=== PATIENT | male | born 1930 | race Caucasian/White ===

== ENCOUNTER 2016-10-05 19:17 | Inpatient (IN) | payer OTHER ==
[~2016-10-05] VITALS: Ht 167.6 cm; Wt 89.1 kg
[~2016-10-05 19:17] MED LIST: CYAN100020; HYDR12.55 PO; METF-384 PO; MULT-190 PO; OMEP20CA9 PO; SIMV10TA5 PO
[2016-10-05] MEDS ORDERED: SODIUM CHLORIDE 0.9% 1000ML 1,000 ML IV STA (19:28)
--- NOTE | 2016-10-05 19:38 | EMERGENCY ROOM VISIT NOTE ---
History Report prepared by Fernando: Skyler Klein Under the Supervision of: Dr. Rodrigo Sanon M.D. First contact with patient: 19:22 Stated Complaint: HEADACHE/ EVAL History of Present Illness The patient is an 86 year old male who presents to the Emergency Room with complaints of a persistent altered mental status that started prior to arrival this evening. Per the nursing staff, the patient cannot remember his dog's name , which is unusual. The patient states that he was waiting for food at a restaurant when he starting becoming woozy. He also had trouble swallowing at the restaurant. He did not eat anything there. The patient currently feels a bit woozy, but not as much as before. He is not diabetic. Source of History: patient, nursing staff Onset: Prior to arrival this evening Position: other (global - altered mental status) Symptom Intensity: cannot remember his dog's name Timing: other (episode) Note: Associated symptoms: Woozy. Trouble swallowing. No other symptoms noted. Review of Systems See HPI for pertinent positives & negatives. A total of 10 systems reviewed and were otherwise negative. Past Medical & Surgical Medical Problems: (1) Confusion and disorientation (2) MGUS (monoclonal gammopathy of unknown significance) Family History No significant family history Social History Smoking Status: Never Smoker Marital Status: in relationship Housing Status: lives alone Current/Historical Medications Scheduled Cyanocobalamin (Vitamin B12), UNIT(INT) DAILY Hydrochlorothiazide (Hydrochlorothiazide), 1 TAB PO DAILY Ocuvite Preservision (Ocuvite Preservision), 1 TAB PO DAILY Omeprazole (Prilosec), 20 MG PO DAILY Simvastatin (Zocor), 10 MG PO QPM Allergies Coded Allergies: No Known Allergies (Unverified , 10/05/16) Physical Exam Vital Signs Date Time Temp Pulse Resp B/P Pulse Ox O2 Delivery O2 Flow Rate FiO2 10/05/16 22:03 78 20 164/93 95 Room Air 10/05/16 21:14 84 20 151/109 99 Nasal Cannula 2.0 10/05/16 20:26 71 20 151/109 98 Nasal Cannula 2.0 10/05/16 20:22 151/109 10/05/16 20:10 98 Nasal Cannula 2.0 10/05/16 19:51 154/102 10/05/16 19:49 145/94 10/05/16 19:48 144/91 10/05/16 19:48 86 20 144/91 97 Room Air 87 145/94 96 154/102 10/05/16 19:47 89 24 10/05/16 19:36 95 Room Air 10/05/16 19:31 83 10/05/16 19:30 90 20 146/82 94 Room Air 10/05/16 19:27 146/82 Physical Exam GENERAL: Patient is a healthy-appearing well-nourished. Does not know the president, does not know where he is. HEAD: Normocephalic atraumatic EYES: Ocular movements intact pupils equal and react to light OROPHARYNX mucous membranes are moist no exudates present no erythema or edema present NECK: Supple no nuchal rigidity CHEST: Good equal expansion LUNGS: Clear and equal to auscultation CARDIAC: Normal S1 and S2 ABDOMEN: Soft nontender no guarding BACK: No CVA tenderness EXTREMITIES: No pain upon palpation normal muscle strength in all groups no clubbing cyanosis or edema NEURO: Patient is following commands is answering questions appropriately. Alert and oriented x3 Cranial Nerves 2-12 grossly intact Medical Decision & Procedures ER Provider Diagnostic Interpretation: Radiology results as stated below per my review and radiologist interpretation: CT HEAD WITHOUT CONTRAST (CT) CLINICAL HISTORY: Acute change in mental status COMPARISON STUDY: 01/12/2015 TECHNIQUE: Axial CT of the brain is performed from the vertex to the skull base. IV contrast was not administered for this examination. CT DOSE: 823.94 mGycm FINDINGS: No intra or extra-axial mass lesions are visualized. There is no CT evidence of acute cortical infarction. There is no evidence of midline shift. There is no acute hemorrhage. No calvarial fractures are visualized. There are minor white matter hypodensities likely on a small vessel basis. There is cerebellar atrophy. There is no evidence of pathologic ventricular dilatation. There is no evidence of acute sinusitis IMPRESSION: No acute intracranial findings Electronically signed by: Juan Tate M.D. 10/05/2016 8:10 PM Dictated Date/Time: 10/05/2016 8:09 PM CHEST ONE VIEW PORTABLE CLINICAL HISTORY: Acute change in mental status COMPARISON STUDY: 12/11/2014 FINDINGS: The heart is enlarged. There is aortic tortuosity/ectasia. There is a retrocardiac opacity consistent with a hiatal hernia. There are bibasilar opacities, likely representing a combination of fat pad and atelectasis. There is no overt failure. There is no lobar consolidation.[ IMPRESSION: 1. Cardiomegaly 2. Hiatal hernia 3. Hazy basilar densities, likely representing a combination of fat pad and atelectasis Electronically signed by: Juan Tate M.D. 10/05/2016 7:57 PM Dictated Date/Time: 10/05/2016 7:56 PM Laboratory Results 10/05/16 19:40 Red Blood Count 4.81, Mean Corpuscular Volume 87.7, Mean Corpuscular Hemoglobin 29.9, Mean Corpuscular Hemoglobin Concent 34.1, Mean Platelet Volume 9.4, Neutrophils (%) (Auto) 53.6, Lymphocytes (%) (Auto) 31.4, Monocytes (%) (Auto) 7.2, Eosinophils (%) (Auto) 6.7, Basophils (%) (Auto) 0.5, Neutrophils # (Auto) 4.30, Lymphocytes # (Auto) 2.52, Monocytes # (Auto) 0.58, Eosinophils # (Auto) 0.54, Basophils # (Auto) 0.04 10/05/16 19:40 Test 10/05/16 19:40 10/05/16 19:41 10/05/16 19:56 White Blood Count 8.03 K/uL (4.8-10.8) Red Blood Count 4.81 M/uL (4.7-6.1) Hemoglobin 14.4 g/dL (14.0-18.0) Hematocrit 42.2 % (42-52) Mean Corpuscular Volume 87.7 fL (80-100) Mean Corpuscular Hemoglobin 29.9 pg (25-34) Mean Corpuscular Hemoglobin Concent 34.1 g/dl (32-36) Platelet Count 214 K/uL (130-400) Mean Platelet Volume 9.4 fL (7.4-10.4) Neutrophils (%) (Auto) 53.6 % Lymphocytes (%) (Auto) 31.4 % Monocytes (%) (Auto) 7.2 % Eosinophils (%) (Auto) 6.7 % Basophils (%) (Auto) 0.5 % Neutrophils # (Auto) 4.30 K/uL (1.4-6.5) Lymphocytes # (Auto) 2.52 K/uL (1.2-3.4) Monocytes # (Auto) 0.58 K/uL (0.11-0.59) Eosinophils # (Auto) 0.54 K/uL (0-0.5) Basophils # (Auto) 0.04 K/uL (0-0.2) RDW Standard Deviation 46.5 fL (36.4-46.3) RDW Coefficient of Variation 14.5 % (11.5-14.5) Immature Granulocyte % (Auto) 0.6 % Immature Granulocyte # (Auto) 0.05 K/uL (0.00-0.02) Anion Gap 6.0 mmol/L (3-11) Est Creatinine Clear Calc Drug Dose 42.1 ml/min Estimated GFR () 53.1 Estimated GFR (Non- 45.8 BUN/Creatinine Ratio 14.3 (10-20) Calcium Level 8.8 mg/dl (8.5-10.1) Magnesium Level 2.2 mg/dl (1.8-2.4) Total Bilirubin 0.6 mg/dl (0.2-1) Direct Bilirubin < 0.1 mg/dl (0-0.2) Aspartate Amino Transf (AST/SGOT) 21 U/L (15-37) Alanine Aminotransferase (ALT/SGPT) 25 U/L (12-78) Alkaline Phosphatase 100 U/L (45-117) Total Creatine Kinase 262 U/L (39-308) Creatine Kinase MB 5.2 ng/ml (0.5-3.6) Creatine Kinase MB Ratio 2.0 (0-3.0) Troponin I < 0.015 ng/ml (0-0.045) Total Protein 7.8 gm/dl (6.4-8.2) Albumin 3.5 gm/dl (3.4-5.0) Thyroid Stimulating Hormone (TSH) 1.370 uIu/ml (0.300-4.500) Bedside Glucose 122 mg/dl (70-99) Urine Color YELLOW Urine Appearance CLEAR (CLEAR) Urine pH 6.5 (4.5-7.5) Urine Specific [place] 1.011 (1.000-1.030) Urine Protein NEG (NEG) Urine Glucose (UA) NEG (NEG) Urine Ketones NEG (NEG) Urine Occult Blood NEG (NEG) Urine Nitrite NEG (NEG) Urine Bilirubin NEG (NEG) Urine Urobilinogen NEG (NEG) Urine Leukocyte Esterase NEG (NEG) Labs reviewed by ED physician. Medications Administered Medications (Trade) Dose Ordered Sig/Malick Route Start Time Stop Time Status Last Admin Dose Admin Sodium Chloride (Nss 1000ml) 1,000 ml @ 999 mls/hr Q1H1M STAT IV 10/05/16 19:28 10/05/16 20:28 DC 10/05/16 19:44 999 MLS/HR Potassium Chloride (Julieta Ciel Elix) 40 meq NOW STAT PO 10/05/16 20:19 10/05/16 20:20 DC 10/05/16 20:31 40 MEQ Lorazepam 2 mg 2 mg STK-MED ONCE .ROUTE 10/05/16 22:27 10/05/16 22:31 DC 10/05/16 22:41 0.5 MG Pantoprazole Sodium/Syringe (Protonix Inj/ Syringe) 10 ml @ 5 mls/min ONE STAT IV 10/05/16 22:42 10/05/16 22:43 DC 10/05/16 23:04 5 MLS/MIN Calcium Carbonate (Tums Chew Tab) 1,000 mg Q1H PRN PO 10/05/16 23:00 11/04/16 22:59 10/05/16 23:04 1,000 MG ECG Indication: weakness Rate (beats per minute): 89 Rhythm: normal sinus Findings: 1st degree AV block, no acute ischemic change, no ectopy ED Course 1924: Past medical records reviewed. The patient was evaluated in room C5. A complete history and physical examination was performed. 1927: Ordered NSS 1000 ml @ 999 mls/hr IV. 2018: Ordered Julieta Ciel Elix 40 meq PO. 2112: I reevaluated the patient and he is sitting up in bed. I discussed the treatment plan with the patient's son. The patient's son verbally expressed understanding and agreement of the treatment plan. The patient will be evaluated for further treatment. 2116: I discussed the patient with Dr. Miller - [facility] hospitalist - he will evaluate the patient for further treatment. Medical Decision Differential diagnosis: Etiologies such as metabolic, infection, hypo/hyperglycemia, electrolyte abnormalities, cardiac sources, intracerebral event, toxicologic, neurologic, as well as others were entertained. This is an 86-year-old male who presents emergency department complaining of acute change in mental status. Patient was in a restaurant this evening when he be somewhat became very disoriented and confused. Upon arrival to emergency department the patient does not know the name of the president or the month he was sent for CAT scan of the head he has a normal urinalysis a normal chest x-ray. Repeat examination revealed the patient to still be acutely confused. For this reason I did discuss the case with the hospitalist who agreed to admit the patient. He has for an MRA MRI of the head. Consults Time Called: 2113 Consulting Physician: Dr. Angela EDDY hospitalist Returned Call: 2116 I discussed the patient with Dr. Angela EDDY [facility] - he will evaluate the patient for further treatment. Impression Primary Impression: Delirium Scribe Attestation The scribe's documentation has been prepared under my direction and personally reviewed by me in its entirety. I confirm that the note above accurately reflects all work, treatment, procedures, and medical decision making performed by me. Departure Information Dispostion Being Evaluated By Hospitalist RV. Sotomayor MD (PCP)
[2016-10-05 19:48] LABS: BASO % 0.5 %; BASO ABS # 0.04 K/uL (0-0.2); COMPLETE YES; EOS % 6.7 %; HEMATOCRIT 42.2 % (42-52); IG% 0.6 %; LYMPH % 31.4 %; LYMPH ABS # 2.52 K/uL (1.2-3.4); MEAN CELL VOLUME 87.7 fL (80-100); MEAN CORPUSCULAR HEMOGLOBIN 29.9 pg (25-34); MEAN CORPUSCULAR HGB CONC 34.1 g/dl (32-36); MEAN PLATELET VOLUME 9.4 fL (7.4-10.4); MONO % 7.2 %; NEUT % 53.6 %; PLATELET COUNT 214 K/uL (130-400); RED BLOOD COUNT 4.81 M/uL (4.7-6.1); WHITE BLOOD COUNT 8.03 K/uL (4.8-10.8)
--- NOTE | 2016-10-05 19:58 | DIAGNOSTIC IMAGING REPORT ---
CHEST ONE VIEW PORTABLE CLINICAL HISTORY: Acute change in mental status COMPARISON STUDY: 12/11/2014 FINDINGS: The heart is enlarged. There is aortic tortuosity/ectasia. There is a retrocardiac opacity consistent with a hiatal hernia. There are bibasilar opacities, likely representing a combination of fat pad and atelectasis. There is no overt failure. There is no lobar consolidation.[ IMPRESSION: 1. Cardiomegaly 2. Hiatal hernia 3. Hazy basilar densities, likely representing a combination of fat pad and atelectasis Electronically signed by: Juan Tate M.D. 10/05/2016 7:57 PM Dictated Date/Time: 10/05/2016 7:56 PM
--- NOTE | 2016-10-05 20:11 | DIAGNOSTIC IMAGING REPORT ---
CT HEAD WITHOUT CONTRAST (CT) CLINICAL HISTORY: Acute change in mental status COMPARISON STUDY: 01/12/2015 TECHNIQUE: Axial CT of the brain is performed from the vertex to the skull base. IV contrast was not administered for this examination. CT DOSE: 823.94 mGycm FINDINGS: No intra or extra-axial mass lesions are visualized. There is no CT evidence of acute cortical infarction. There is no evidence of midline shift. There is no acute hemorrhage. No calvarial fractures are visualized. There are minor white matter hypodensities likely on a small vessel basis. There is cerebellar atrophy. There is no evidence of pathologic ventricular dilatation. There is no evidence of acute sinusitis IMPRESSION: No acute intracranial findings Electronically signed by: Juan Tate M.D. 10/05/2016 8:10 PM Dictated Date/Time: 10/05/2016 8:09 PM
[2016-10-05 20:15] LABS: BLOOD UREA NITROGEN 20 mg/dl (7-18); BUN/CREATININE RATIO 14.3 (10-20); CALCIUM 8.8 mg/dl (8.5-10.1); CARBON DIOXIDE 31 mmol/L (21-32); CHLORIDE 104 mmol/L (98-107); GLUCOSE 136 mg/dl (70-99); POTASSIUM 3.4 mmol/L (3.5-5.1); SODIUM 141 mmol/L (136-145)
[2016-10-05 20:17] LABS: URINE APPEARANCE CLEAR (CLEAR); URINE BILIRUBIN NEG (NEG); URINE COLOR YELLOW; URINE NITRITE NEG (NEG); URINE PH 6.5 (4.5-7.5); URINE SPECIFIC GRAVITY 1.011 (1.000-1.030); UROBILINOGEN NEG (NEG)
[2016-10-05] MEDS ORDERED: POTASSIUM CHLORIDE 20 MEQ/15 ML UDC PO STA (20:19)
[2016-10-05 20:22] LABS: MANUAL MICROSCOPIC REQUIRED? NO; REVIEW REQ? NO
[2016-10-05 20:26] LABS: ALKALINE PHOSPHATASE 100 U/L (45-117); ALT/SGPT 25 U/L (12-78); AST/SGOT 21 U/L (15-37)
[2016-10-05] MEDS ORDERED: NITROGLYCERIN 0.4 MG SL PER TAB CHARGE SL PRN (22:00)
[2016-10-05] MEDS ORDERED: ZOLPIDEM TARTRATE 5 MG TAB PO PRN (22:00)
[2016-10-05] MEDS ORDERED: ACETAMINOPHEN 325 MG TAB PO PRN (22:00)
[2016-10-05] MEDS ORDERED: LORAZEPAM 2 MG/ML 1 ML VIAL ONE (22:27)
[2016-10-05] MEDS ORDERED: PANTOprazole INJ 40 MG in SYRINGE 0 ML IV STA (22:42)
[2016-10-05] MEDS ORDERED: NURSING VERBAL MED ORDER ONE (23:00)
[2016-10-05] MEDS ORDERED: CALCIUM CARBONATE 500 MG CHEWABLE PO PRN (23:00)
[2016-10-06] VITALS (10 sets, daily range): BP systolic 124–156; BP diastolic 82–100; PULSE 55–101; TEMP 36.6–37.3; O2SAT 93–96; Ht 167.6 cm; Wt 89.1 kg
[2016-10-06] MEDS ORDERED: GADAVIST IV PRN (01:15)
[2016-10-06] MEDS: NSS + 20MEQ KCL 1000ML 1,000 ML IV SCH ×2 (02:00→15:32)
--- NOTE | 2016-10-06 02:26 | Progress Note ---
Progress Note Date of Service Oct 06, 2016. Progress Note Concern from RN Sue that patient had new right sided numbness and weakness coming out from the MRI scanner. Patient is also having nominal and expressive dysphasia. Discussed with Dr Miller who admitted the patient and recommended stat CT head to assess for secondary bleeding. Patient was examined after the CT and had returned to his baseline. Suspect acute fluctuation was due to benzodiazepine rather than any developing stroke. Patient was handed over to the day team.
--- NOTE | 2016-10-06 04:06 | History and Physical ---
History & Physical Date & Time of Service: Oct 06, 2016 at 03:51 Chief Complaint: Confusion And Disorientation Primary Care Physician: No Doctor, Assigned History of Present Illness Source: patient, family The patient is a 86-year-old male who presents emergency department with altered mental status and imbalance, memory loss that began while he was waiting for food at a restaurant. His first symptoms were that of feeling woozy , and reportedly had leans to the right side and was snoring while at the restaurant. He did not get she has seen anything there. He has not had these type symptoms before. He has not had any recent travel. He has not had any sick exposures. Past Medical/Surgical History Medical Problems: (1) MGUS (monoclonal gammopathy of unknown significance) Status: Chronic Family History No significant family history Social History Smoking Status: Never Smoker Smokeless Tobacco Use: No Alcohol Use: none Drug Use: none Marital Status: in relationship Housing status: lives alone Immunizations History of Influenza Vaccine: Yes Influenza Vaccine Date: May 08, 2012 History of Tetanus Vaccine?: Unknown History of Pneumococcal: Yes History of Hepatitis B Vaccine: No Multi-Drug Resistant Organisms History of MDRO: No Allergies Coded Allergies: No Known Allergies (Unverified , 10/05/16) Home Medications Scheduled Cyanocobalamin (Vitamin B12), UNIT(INT) DAILY Hydrochlorothiazide (Hydrochlorothiazide), 1 TAB PO DAILY Ocuvite Preservision (Ocuvite Preservision), 1 TAB PO DAILY Omeprazole (Prilosec), 20 MG PO DAILY Simvastatin (Zocor), 10 MG PO QPM Review of Systems The patient denies chest pain, palpitations, shortness of breath, cough, lower extremity swelling, vision change, hearing change, sore throat, fevers, chills, sweats, weight change, fatigue, nausea, vomiting, abdominal pain, pelvic pain, blood in urine or stool, dysuria, urinary frequency or urgency, rash, abnormal bruising or bleeding, focal or generalized weakness, numbness or tingling in arms or legs, arthralgias or myalgias, back or neck pain, night sweats, or allergy symptoms. The review of systems is otherwise negative other than for that already noted above, and at least 10 systems have been reviewed. Physical Exam Vital Signs Date Time Temp Pulse Resp B/P Pulse Ox O2 Delivery O2 Flow Rate FiO2 10/06/16 00:30 36.6 63 18 124/84 95 Room Air 10/05/16 22:03 78 20 164/93 95 Room Air 10/05/16 21:14 84 20 151/109 99 Nasal Cannula 2.0 10/05/16 20:26 71 20 151/109 98 Nasal Cannula 2.0 10/05/16 20:22 151/109 10/05/16 20:10 98 Nasal Cannula 2.0 10/05/16 19:51 154/102 10/05/16 19:49 145/94 10/05/16 19:48 144/91 10/05/16 19:48 86 20 144/91 97 Room Air 87 145/94 96 154/102 10/05/16 19:47 89 24 10/05/16 19:36 95 Room Air 10/05/16 19:31 83 10/05/16 19:30 90 20 146/82 94 Room Air 10/05/16 19:27 146/82 The patient is awake, well-developed and adequately nourished, alert and oriented 3, normocephalic and atraumatic, lying in bed and in no acute distress. HEENT--PERRL, EOMI, mucous membranes and oropharynx dry. Neck--supple, no JVD or bruits, thyroid normal, trachea midline, no adenopathy. Heart--normal S1 and S2, no extra beats, no murmurs, rubs or gallops. Lungs--clear bilaterally with good air movement, no respiratory distress, no accessory muscle use. Abdomen--normal bowel sounds and soft, nontender and nondistended, no hernias or masses, no organomegaly. Extremities--no cyanosis, clubbing or edema. There are good distal pulses b/l. Dermatologic--normal skin turgor, normal color, warm and dry, no abnormal lymph nodes, no rash. Neurologic--cranial nerves II through XII grossly intact, motor and sensory examination normal, except for mildly decreased coordination with right hand. Rheumatologic--normal range of motion, nontender, muscles and joints. Psychiatric--normal affect. Diagnostics Laboratory Results Results Past 24 Hours Test 10/05/16 19:40 10/05/16 19:41 10/05/16 19:56 Range/Units White Blood Count 8.03 4.8-10.8 K/uL Red Blood Count 4.81 4.7-6.1 M/uL Hemoglobin 14.4 14.0-18.0 g/dL Hematocrit 42.2 42-52 % Mean Corpuscular Volume 87.7 80-100 fL Mean Corpuscular Hemoglobin 29.9 25-34 pg Mean Corpuscular Hemoglobin Concent 34.1 32-36 g/dl Platelet Count 214 130-400 K/uL Mean Platelet Volume 9.4 7.4-10.4 fL Neutrophils (%) (Auto) 53.6 % Lymphocytes (%) (Auto) 31.4 % Monocytes (%) (Auto) 7.2 % Eosinophils (%) (Auto) 6.7 % Basophils (%) (Auto) 0.5 % Neutrophils # (Auto) 4.30 1.4-6.5 K/uL Lymphocytes # (Auto) 2.52 1.2-3.4 K/uL Monocytes # (Auto) 0.58 0.11-0.59 K/uL Eosinophils # (Auto) 0.54 0-0.5 K/uL Basophils # (Auto) 0.04 0-0.2 K/uL RDW Standard Deviation 46.5 36.4-46.3 fL RDW Coefficient of Variation 14.5 11.5-14.5 % Immature Granulocyte % (Auto) 0.6 % Immature Granulocyte # (Auto) 0.05 0.00-0.02 K/uL Sodium Level 141 136-145 mmol/L Potassium Level 3.4 3.5-5.1 mmol/L Chloride Level 104 98-107 mmol/L Carbon Dioxide Level 31 21-32 mmol/L Anion Gap 6.0 3-11 mmol/L Blood Urea Nitrogen 20 7-18 mg/dl Creatinine 1.40 0.60-1.40 mg/dl Est Creatinine Clear Calc Drug Dose 42.1 ml/min Estimated GFR () 53.1 Estimated GFR (Non- 45.8 BUN/Creatinine Ratio 14.3 10-20 Random Glucose 136 70-99 mg/dl Calcium Level 8.8 8.5-10.1 mg/dl Magnesium Level 2.2 1.8-2.4 mg/dl Total Bilirubin 0.6 0.2-1 mg/dl Direct Bilirubin < 0.1 0-0.2 mg/dl Aspartate Amino Transf (AST/SGOT) 21 15-37 U/L Alanine Aminotransferase (ALT/SGPT) 25 12-78 U/L Alkaline Phosphatase 100 45-117 U/L Total Creatine Kinase 262 39-308 U/L Creatine Kinase MB 5.2 0.5-3.6 ng/ml Creatine Kinase MB Ratio 2.0 0-3.0 Troponin I < 0.015 0-0.045 ng/ml Total Protein 7.8 6.4-8.2 gm/dl Albumin 3.5 3.4-5.0 gm/dl Thyroid Stimulating Hormone (TSH) 1.370 0.300-4.500 uIu/ml Bedside Glucose 122 70-99 mg/dl Urine Color YELLOW Urine Appearance CLEAR CLEAR Urine pH 6.5 4.5-7.5 Urine Specific [place] 1.011 1.000-1.030 Urine Protein NEG NEG Urine Glucose (UA) NEG NEG Urine Ketones NEG NEG Urine Occult Blood NEG NEG Urine Nitrite NEG NEG Urine Bilirubin NEG NEG Urine Urobilinogen NEG NEG Urine Leukocyte Esterase NEG NEG Diagnostic Radiology Patient Name: LASHELL SANDERS Unit Number: [id number] Dictated: 10/05/162008 Transcribed: 10/05/162008 ARG Printed Date/Time: [~ rep prt dt]/[~ rep prt tm] [~ rep ct labl] - [~ rep ct ivnm] [facility] [place] [address] Dictated: 10/05/162008 Transcribed: 10/05/162008 ARG Printed Date/Time: [~ rep prt dt]/[~ rep prt tm] [~ rep ct labl] - [~ rep ct ivnm] [~ rep ct add3]] CT HEAD WITHOUT CONTRAST (CT) CLINICAL HISTORY: Acute change in mental status COMPARISON STUDY: 01/12/2015 TECHNIQUE: Axial CT of the brain is performed from the vertex to the skull base. IV contrast was not administered for this examination. CT DOSE: 823.94 mGycm FINDINGS: No intra or extra-axial mass lesions are visualized. There is no CT evidence of acute cortical infarction. There is no evidence of midline shift. There is no acute hemorrhage. No calvarial fractures are visualized. There are minor white matter hypodensities likely on a small vessel basis. There is cerebellar atrophy. There is no evidence of pathologic ventricular dilatation. There is no evidence of acute sinusitis IMPRESSION: No acute intracranial findings Electronically signed by: Juan Tate M.D. 10/05/2016 8:10 PM Dictated Date/Time: 10/05/2016 8:09 PM The status of this report is Signed. Draft = Not yet reviewed or approved by Radiologist. Signed = Reviewed and approved by Radiologist. <AttendingPhy></AttendingPhy> <FamilyPhy>RV. Malik MD</ FamilyPhy> <PrimaryPhy>RV. Malik MD</PrimaryPhy> <UnitNumber> [id number]</UnitNumber> <VisitNumber>[id number]</VisitNumber> <PatientName> TOMMYLASHELL</PatientName> <DateOfBirth>1930</DateOfBirth> <Location>[facility] </Location> <ServiceDate>10/05/16</ServiceDate> <MNE>ESINDI</MNE> <OrderingPhy> Rodrigo Sanon MD</OrderingPhy> <OrderingPhyMNE>f rep ord dr fernandez</ OrderingPhyMNE> <DictatingPhyMNE>f rep dict dr fernandez</DictatingPhyMNE> <CCListMNE> f rep ct jim</CCListMNE> <AdmittingPhyMNE>f pt admit dr fernandez</AdmittingPhyMNE> < AttendingPhyMNE>f pt attend dr fernandez</AttendingPhyMNE> <ConsultingPhyMNE>f pt consult dr fernandez</ConsultingPhyMNE> <FamilyPhyMNE>f pt fam dr fernandez</FamilyPhyMNE> <OtherPhyMNE>f pt other dr fernandez</OtherPhyMNE> < PrimaryPhyMNE>f pt prim care dr fernandez</PrimaryPhyMNE> <ReferringPhyMNE>f pt referring dr fernandez</ReferringPhyMNE> CLINICAL HISTORY: Acute change in mental status COMPARISON STUDY: 12/11/2014 FINDINGS: The heart is enlarged. There is aortic tortuosity/ectasia. There is a retrocardiac opacity consistent with a hiatal hernia. There are bibasilar opacities, likely representing a combination of fat pad and atelectasis. There is no overt failure. There is no lobar consolidation.[ IMPRESSION: 1. Cardiomegaly 2. Hiatal hernia 3. Hazy basilar densities, likely representing a combination of fat pad and atelectasis Electronically signed by: Juan Tate M.D. 10/05/2016 7:57 PM Dictated Date/Time: 10/05/2016 7:56 PM The status of this report is Signed. Draft = Not yet reviewed or approved by Radiologist. EKG EKG shows normal sinus rhythm at 89 bpm, first-degree heart block, incomplete right bundle branch block, no acute ST-T changes Impression Assessment and Plan Altered mental status/memory loss/discoordination--patient be admitted to the telemetry unit, for serial cardiac enzymes, cardiac rhythm monitoring and a 2-D echocardiogram with Dopplers. His CT of the head is normal. We will get an MRI of the brain combo, MRA of the neck combo, an MRA of the head without contrast for further assessment. He has of note, per the ED, received aspirin by EMS. We'll continue aspirin 81 mg by mouth every morning, and hold HCTZ 25 mg by mouth daily due to hypokalemia. We'll consult neurology to see the patient a.m.. The patient also was reported to be outside the time window for stroke alert assessment. We will allow permissive hypertension in the event that the patient has had a stroke. Hypercholesterolemia--continue simvastatin 10 mg by mouth every afternoon. GERD--change omeprazole 20 mg by mouth daily to pantoprazole 40 mg by mouth daily. Vitamin B-12 deficiency--will continue 1000 g by mouth daily. Level of Care Telemetry Advanced Directives Existing Advance Directive: No Existing Living Will: No Existing Power of Company Laundry Worker: No Resuscitation Status FULL RESUSCITATION VTE Prophylaxis VTE Risk Assessment Done? Y/N: Yes Risk Level: Moderate Given or contraindicated: SCD's
--- NOTE | 2016-10-06 06:35 | DIAGNOSTIC IMAGING REPORT ---
Brain MRA HISTORY: Mental status change Pt c/o AMS TECHNIQUE: 3-D [id number] MRA of the brain was performed without contrast. COMPARISON STUDY: None. 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 Very small caliber left vertebral artery terminating proximal to its juncture with the basilar. All remaining intracranial vascular structures are unremarkable. IMPRESSION: 1. Occlusion left posterior cerebral artery. 2. 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 10/06/2016 6:33 AM Dictated Date/Time: 10/06/2016 6:32 AM
--- NOTE | 2016-10-06 06:38 | DIAGNOSTIC IMAGING REPORT ---
NECK MRA HISTORY: Stroke Pt c/o AMS TECHNIQUE: [id number] and gadolinium-enhanced MRA of the neck was performed both before and after the intravenous administration of contrast. All measurements were calculated based on NASCET criteria. COMPARISON STUDY: None. FINDINGS: Study is compromised due to considerable patient motion. Small caliber left vertebral artery occluded distally. Moderate atherosclerotic change carotid bifurcations. 4-50% narrowing left internal carotid artery. No evidence for high-grade stenotic process involving the carotid systems. IMPRESSION: 1. Limited study due to patient motion. 2. 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 3. 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 10/06/2016 6:36 AM Dictated Date/Time: 10/06/2016 6:34 AM
--- NOTE | 2016-10-06 06:45 | DIAGNOSTIC IMAGING REPORT ---
HEAD CT NONCONTRAST CT DOSE: 614.27 mGy.cm HISTORY: Progressive infarct Worsening right sided arm weakness since MRI - left [employer]CH[employer] occlu TECHNIQUE: Multiaxial CT images of the head were performed without the use of intravenous contrast. Comparison: 10/05/2016 Findings: Mucous retention cyst right maxillary sinus. Sinuses otherwise are generally clear. Mastoid air cells are clear. The calvarium and skull base are intact. The ventricles and sulci are within normal limits. There is no mass, hematoma, midline shift, or acute infarct. Previously described infarct seen on the patient's MRI study again remains a very obscured to nonvisualized on this exam. No evidence for acute intracranial hemorrhage Impression: CT remains negative for a well-defined abnormality . No change from the patient's prior CT study Electronically signed by: Froy Laws M.D. 10/06/2016 6:44 AM Dictated Date/Time: 10/06/2016 6:41 AM
--- NOTE | 2016-10-06 07:17 | DIAGNOSTIC IMAGING REPORT ---
MRI OF THE BRAIN COMBO CLINICAL HISTORY: Change in mental status. Headache. COMPARISON STUDY: CT of the brain dated 10/05/2016. TECHNIQUE: MRI of the brain was performed utilizing various T1 and T2-weighted sequences in the axial, sagittal, and coronal planes. Contrast-enhanced sequences were acquired following the administration of 9 cc of Gadavist. FINDINGS: Brain parenchyma: There are foci of restricted diffusion in the medial left temporal lobe and the left thalamus consistent with acute to subacute ischemia. There is only minimal associated edema. No additional foci of acute ischemia are suspected. There is no hemorrhage or mass effect. There are age-related involutional changes noting mild patchy subcortical and periventricular microangiopathic disease. No enhancing mass lesion is identified on the postcontrast images. No extra-axial fluid collection is seen. The cerebellar tonsils are normal in configuration. Ventricles, sulci, and cisterns: Prominent secondary to involutional change. Pituitary and sella: Unremarkable. Intracranial vasculature: Normal flow voids are maintained at the skull base. Orbits: The bony orbits are grossly intact. Orbital contents are normal in appearance noting bilateral ocular lens implants. Sinuses and mastoids: There is mild to moderate mucosal thickening in the right maxillary antrum. Mucosal thickening is also seen within the frontal, anterior ethmoid, and left maxillary sinuses. There is a small right mastoid effusion. Calvarium: Unremarkable. Cervical cord: Partially visualized cervical spinal cord is normal in morphology and signal intensity. IMPRESSION: 1. There are foci of restricted diffusion within the medial left temporal lobe and within the left thalamus consistent with acute to subacute ischemia. 2. No additional foci of acute ischemia are suspected. There is no hemorrhage or significant mass effect. Electronically signed by: Tomi Roberts M.D. 10/06/2016 7:15 AM Dictated Date/Time: 10/06/2016 7:11 AM
[2016-10-06] MEDS: CYANOCOBALAMIN 500 MCG TAB (VIT B-12) PO SCH (08:34)
[2016-10-06] MEDS: CEROVITE ADV FORMULA TAB PO SCH (08:34)
[2016-10-06] MEDS: PANTOprazole SOD 40 MG TAB PO SCH (08:34)
[2016-10-06] MEDS ORDERED: CYANOCOBALAMIN 100 MCG TAB (VIT B-12) PO SCH (09:00)
[2016-10-06] MEDS ORDERED: ASPIRIN 81 MG ECTAB PO SCH (09:00)
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
[2016-10-06] MEDS ORDERED: CLOPIDOGREL BISULFATE 75 MG TAB PO ONE (12:00)
--- NOTE | 2016-10-06 13:00 | ECHOCARDIOGRAM REPORT ---
*NOTICE TO RECEIVING CONSTITUTION PARTY AGENCY This information is strictly Confidential and protected under [place] law. [place] law prohibits you from making any further disclosure of this information unless further disclosure is expressly permitted by the written consent of the person to whom it pertains or is authorized by law. A general authorization for the release of medical or other information is not sufficient for this purpose. Hospital accepts no responsibility if the information is made available to any other person, INCLUDING THE PATIENT. Interpretation Summary * Name: LASHELL SANDERS Study Date: 10/06/2016 08:40 AM BP: 150/86 mmHg * Patient Location: 2T\S\S239\S\1 HR: 93 * : 1930 (M/d/yyyy) Gender: Male Height: 67 in * Age: 86 yrs Ethnicity: [place] Weight: 198 lb * Ordering Physician: Bakari Miller * Referring Physician: Self, Referred * Performed By: Alla Horton RCS * * Reason For Study: CEREBRAL ISCHEMIA / EMBOLUS * BSA: 2.0 m2 * -- Conclusions -- * Left ventricular systolic function is normal. * No regional wall motion abnormalities noted. * Ejection Fraction = 65-70%. * There is moderate concentric left ventricular hypertrophy. * Grade I diastolic dysfunction, (abnormal relaxation pattern). * There is mild tricuspid regurgitation. * Injection of contrast documented no interatrial shunt. Procedure Details * A complete two-dimensional transthoracic echocardiogram was performed (2D, M-mode, Doppler and color flow Doppler). * A saline contrast injection was performed to assess for cardiac shunting. * The injection was performed through an intravenous line in the left arm. * The attending nurse who injected the saline contrast was WILLI MARTIN, RN. * A total of 20 cc of agitated saline was given. Left Ventricle * The left ventricle is normal in size. * There is moderate concentric left ventricular hypertrophy. * Ejection Fraction = 65-70%. * Left ventricular systolic function is normal. * No regional wall motion abnormalities noted. Right Ventricle * The right ventricle is normal size. * The right ventricular systolic function is normal as assessed by tricuspid annular plane systolic excursion (TAPSE) (normal >1.5 cm). Atria * The left atrium is mildly dilated. * The right atrium is mildly dilated. * Injection of contrast documented no interatrial shunt. Mitral Valve * The mitral valve is grossly normal. * There is no mitral valve stenosis. * Significant mitral regurgitation is absent. Tricuspid Valve * The tricuspid valve is not well visualized, but is grossly normal. * There is mild tricuspid regurgitation. Aortic Valve * The aortic valve is trileaflet. * The aortic valve opens well. * No hemodynamically significant valvular aortic stenosis. * No aortic regurgitation is present. Pulmonic Valve * The pulmonary valve is not well seen, but the Doppler examination is normal without significant regurgitation or stenosis. Great Vessels * The aortic root is normal size. * The pulmonary is not well visualized. Pericardium/Pleural * There is no pericardial effusion. Great Vessels * Normal inferior vena cava size and collapsability with sniff indicates a normal right atrial pressure of 3 mmHg Left Ventricular Diastolic Function * Grade I diastolic dysfunction, (abnormal relaxation pattern). MMode 2D Measurements and Calculations IVSd 1.4 cm IVSs 1.7 cm LVIDd 5.0 cm LVIDs 3.2 cm LVPWd 1.0 cm LVPWs 1.2 cm IVS/LVPW 1.3 FS 36.5 % EDV(Teich) 116.6 ml ESV(Teich) 39.6 ml EF(Teich) 66.1 % EDV(cubed) 122.7 ml ESV(cubed) 31.4 ml EF(cubed) 74.4 % % IVS thick 26.6 % % LVPW thick 17.9 % LV mass(C)d 232.8 grams LV mass(C)dI 115.6 grams/m\S\2 LV mass(C)s 164.9 grams LV mass(C)sI 81.9 grams/m\S\2 SV(Teich) 77.0 ml SI(Teich) 38.2 ml/m\S\2 SV(cubed) 91.3 ml SI(cubed) 45.4 ml/m\S\2 Ao root diam 4.7 cm Ao root area 17.3 cm\S\2 LA dimension 3.2 cm LA/Ao 0.67 LVOT diam 2.1 cm LVOT area 3.4 cm\S\2 LVAd ap4 26.8 cm\S\2 LVLd ap4 7.3 cm EDV(MOD-sp4) 82.4 ml EDV(sp4-el) 83.4 ml LVAs ap4 16.2 cm\S\2 LVLs ap4 6.1 cm ESV(MOD-sp4) 36.2 ml ESV(sp4-el) 36.7 ml EF(MOD-sp4) 56.0 % EF(sp4-el) 55.9 % LVAd ap2 37.6 cm\S\2 LVLd ap2 8.0 cm EDV(MOD-sp2) 141.7 ml EDV(sp2-el) 149.3 ml LVAs ap2 19.0 cm\S\2 LVLs ap2 6.3 cm ESV(MOD-sp2) 45.7 ml ESV(sp2-el) 48.9 ml EF(MOD-sp2) 67.7 % EF(sp2-el) 67.3 % LVLd %diff 9.1 % EDV(MOD-bp) 114.2 ml LVLs %diff 2.5 % ESV(MOD-bp) 40.0 ml EF(MOD-bp) 65.0 % SV(MOD-sp4) 46.2 ml SI(MOD-sp4) 22.9 ml/m\S\2 SV(MOD-sp2) 96.0 ml SI(MOD-sp2) 47.7 ml/m\S\2 SV(MOD-bp) 74.2 ml SI(MOD-bp) 36.8 ml/m\S\2 SV(sp4-el) 46.6 ml SI(sp4-el) 23.2 ml/m\S\2 SV(sp2-el) 100.5 ml SI(sp2-el) 49.9 ml/m\S\2 Doppler Measurements and Calculations MV E max carmen 106.2 cm/sec MV A max carmen 127.3 cm/sec MV E/A 0.83 MV P1/2t max carmen 151.8 cm/sec MV P1/2t 64.2 msec MVA(P1/2t) 3.4 cm\S\2 MV dec slope 692.4 cm/sec\S\2 MV dec time 0.25 sec Ao V2 max 164.8 cm/sec Ao max PG 10.9 mmHg Ao max PG (full) 4.5 mmHg DEAN(V,A) 2.6 cm\S\2 DEAN(V,D) 2.6 cm\S\2 AI max carmen 441.9 cm/sec AI max PG 78.1 mmHg AI dec slope 212.9 cm/sec\S\2 AI P1/2t 608.0 msec LV V1 max PG 6.3 mmHg LV V1 max 125.6 cm/sec PA V2 max 114.2 cm/sec PA max PG 5.2 mmHg TR max carmen 307.2 cm/sec
--- NOTE | 2016-10-06 18:05 | Hospitalist Progress Note ---
Hospitalist Progress Note Date of Service Oct 06, 2016. Subjective Pt evaluation today including: conversation w/ patient, physical exam, chart review, lab review, review of studies, review of inpatient medication list Patient is feeling ok. No chest pain, no SOB or cough. No headache. Additional Comments: A 10 system review was performed and all were negative. Positives were placed in the subjective section. Objective Vital Signs Date Time Temp Pulse Resp B/P Pulse Ox O2 Delivery O2 Flow Rate FiO2 10/06/16 16:00 94 Room Air 10/06/16 15:40 37.1 87 22 136/87 94 Room Air 10/06/16 12:15 36.6 99 16 140/87 94 10/06/16 12:10 Room Air 10/06/16 08:39 36.6 101 16 156/100 95 10/06/16 08:30 Room Air 10/06/16 04:00 Room Air 10/06/16 03:55 36.7 67 20 150/86 96 Room Air 10/06/16 00:30 36.6 63 18 124/84 95 Room Air 10/05/16 22:03 78 20 164/93 95 Room Air 10/05/16 21:14 84 20 151/109 99 Nasal Cannula 2.0 10/05/16 20:26 71 20 151/109 98 Nasal Cannula 2.0 10/05/16 20:22 151/109 10/05/16 20:10 98 Nasal Cannula 2.0 10/05/16 19:51 154/102 10/05/16 19:49 145/94 10/05/16 19:48 144/91 10/05/16 19:48 86 20 144/91 97 Room Air 87 145/94 96 154/102 10/05/16 19:47 89 24 10/05/16 19:36 95 Room Air 10/05/16 19:31 83 10/05/16 19:30 90 20 146/82 94 Room Air 10/05/16 19:27 146/82 Physical Exam Notes: GEN: Awake, alert, and oriented x 3. Not in acute distress HEENT: Tm's intact, no inflammation, EOMI, PERRLA, MMM Neck: Soft, supple Lungs: CTA b/l, no r/r/w Heart: REG, nrl S1S2 without murmurs, rubs or gallops Abdomen: Soft, NT, ND, + BS EXT: No C/C/E NEURO: CN's II-XII grossly intact, strength 4/5 on the right upper and lower ext. 5/5 on the left upper and lower. Skin: warm, dry, no rashes PSYCH: pleasant, cooperative. Laboratory Results Last 24 Hours Test 10/05/16 19:40 10/05/16 19:41 10/05/16 19:56 White Blood Count 8.03 K/uL Red Blood Count 4.81 M/uL Hemoglobin 14.4 g/dL Hematocrit 42.2 % Mean Corpuscular Volume 87.7 fL Mean Corpuscular Hemoglobin 29.9 pg Mean Corpuscular Hemoglobin Concent 34.1 g/dl Platelet Count 214 K/uL Mean Platelet Volume 9.4 fL Neutrophils (%) (Auto) 53.6 % Lymphocytes (%) (Auto) 31.4 % Monocytes (%) (Auto) 7.2 % Eosinophils (%) (Auto) 6.7 % Basophils (%) (Auto) 0.5 % Neutrophils # (Auto) 4.30 K/uL Lymphocytes # (Auto) 2.52 K/uL Monocytes # (Auto) 0.58 K/uL Eosinophils # (Auto) 0.54 K/uL Basophils # (Auto) 0.04 K/uL RDW Standard Deviation 46.5 fL RDW Coefficient of Variation 14.5 % Immature Granulocyte % (Auto) 0.6 % Immature Granulocyte # (Auto) 0.05 K/uL Sodium Level 141 mmol/L Potassium Level 3.4 mmol/L Chloride Level 104 mmol/L Carbon Dioxide Level 31 mmol/L Anion Gap 6.0 mmol/L Blood Urea Nitrogen 20 mg/dl Creatinine 1.40 mg/dl Est Creatinine Clear Calc Drug Dose 42.1 ml/min Estimated GFR () 53.1 Estimated GFR (Non- 45.8 BUN/Creatinine Ratio 14.3 Random Glucose 136 mg/dl Calcium Level 8.8 mg/dl Magnesium Level 2.2 mg/dl Total Bilirubin 0.6 mg/dl Direct Bilirubin < 0.1 mg/dl Aspartate Amino Transf (AST/SGOT) 21 U/L Alanine Aminotransferase (ALT/SGPT) 25 U/L Alkaline Phosphatase 100 U/L Total Creatine Kinase 262 U/L Creatine Kinase MB 5.2 ng/ml Creatine Kinase MB Ratio 2.0 Troponin I < 0.015 ng/ml Total Protein 7.8 gm/dl Albumin 3.5 gm/dl Thyroid Stimulating Hormone (TSH) 1.370 uIu/ml Bedside Glucose 122 mg/dl Urine Color YELLOW Urine Appearance CLEAR Urine pH 6.5 Urine Specific [place] 1.011 Urine Protein NEG Urine Glucose (UA) NEG Urine Ketones NEG Urine Occult Blood NEG Urine Nitrite NEG Urine Bilirubin NEG Urine Urobilinogen NEG Urine Leukocyte Esterase NEG Assessment and Plan 1) CVA ischemic with right hemiparesis - Aspirin has been changed to Plavix. PT /OT/Speech therapy. Neurology did evaluate patient and make recommendations. 2) Hyperlipidemia by history 3) monoclonal gammopathy - chronic condition 4) Anemia - chronic DVT prophylaxis - SCDs, sub-q lovenox.
[2016-10-06 19:13] LABS: PROTHROMBIN TIME (PATIENT) 10.8 SECONDS (9.0-12.0)
[2016-10-06] MEDS: SIMVASTATIN 10 MG TAB PO SCH (21:09)
[2016-10-06] MEDS: ENOXAPARIN 40 MG/0.4 ML SYR SQ SCH (21:10)
[2016-10-07] VITALS (11 sets, daily range): BP systolic 79–178; BP diastolic 43–116; PULSE 62–91; TEMP 36.9–37.7; O2SAT 92–96
[2016-10-07] MEDS: NSS + 20MEQ KCL 1000ML 1,000 ML IV SCH ×2 (02:32→16:40)
[2016-10-07 07:04] LABS: CHOLESTEROL/HDL RATIO 3.9
[2016-10-07] MEDS: CEROVITE ADV FORMULA TAB PO SCH (08:48)
[2016-10-07] MEDS: CLOPIDOGREL BISULFATE 75 MG TAB PO SCH (08:48)
[2016-10-07] MEDS: CYANOCOBALAMIN 500 MCG TAB (VIT B-12) PO SCH (08:48)
[2016-10-07] MEDS: PANTOprazole SOD 40 MG TAB PO SCH (08:48)
--- NOTE | 2016-10-07 10:35 | Neurology Progress Notes ---
Neurology Progress Note Date of Service Oct 07, 2016. Subjective Patient's is feeling better today with a little more movement of his right side. He has no pain or headaches. Nursing reports no new events. Cholesterol was low at 128 lift profile was unremarkable. Echocardiogram showed moderate left ventricular hypertrophy, no evidence of shunt, or source of emboli. Objective Date Time Temp Pulse Resp B/P Pulse Ox O2 Delivery O2 Flow Rate FiO2 10/07/16 07:49 37.7 75 20 131/75 93 Room Air 74 134/78 91 118/48 10/07/16 04:00 Room Air 10/07/16 03:10 37.1 77 17 142/84 92 Room Air 10/06/16 23:45 Room Air 10/06/16 23:21 88 147/100 10/06/16 23:19 88 153/94 10/06/16 23:12 37.3 55 18 153/82 94 Room Air 10/06/16 20:00 Room Air 10/06/16 19:12 37.0 98 20 128/82 93 Room Air 10/06/16 16:00 94 Room Air 10/06/16 15:40 37.1 87 22 136/87 94 Room Air 10/06/16 12:15 36.6 99 16 140/87 94 10/06/16 12:10 Room Air Last 24 Hours Test 10/06/16 19:00 10/07/16 06:02 Prothrombin Time 10.8 SECONDS Prothromb Time International Ratio 1.0 Triglycerides Level 127 mg/dl Cholesterol Level 128 mg/dl HDL Cholesterol 33 mg/dl LDL Cholesterol, Calculated 70 mg/dl VLDL Cholesterol, Calculated 25 mg/dl Cholesterol/HDL Ratio 3.9 Exam: He is awake and alert. His speech is without aphasia or dysarthria. Mood and affect seem normal appropriate. Thought processes are intact. Extraocular muscles are intact without nystagmus. There is no facial droop. He has some right-sided drift and mild weakness of the right arm and leg compared to the left which is normal. Current Inpatient Medications Medications (Trade) Dose Ordered Sig/Malick Route Start Time Stop Time Status Last Admin Dose Admin Potassium Chloride/Sodium Chloride (Nss + 20meq KCl 1000ml) 1,000 ml @ 80 mls/hr [id number] IV 10/06/16 02:00 11/05/16 01:59 10/07/16 02:32 80 MLS/HR Acetaminophen (Tylenol Tab) 650 mg Q4H PRN PO 10/05/16 22:00 11/04/16 21:59 Nitroglycerin (Nitrostat Tab) 0.4 mg UD PRN SL 10/05/16 22:00 11/04/16 21:59 Multivitamins/ Minerals (Multivitamin W/ Minerals Tab) 1 tab DAILY PO 10/06/16 09:00 11/05/16 08:59 10/07/16 08:48 1 TAB Simvastatin (Zocor Tab) 10 mg QPM PO 10/06/16 21:00 11/05/16 20:59 10/06/16 21:09 10 MG Pantoprazole Sodium (Protonix Tab) 40 mg QAM PO 10/06/16 09:00 11/05/16 08:59 10/07/16 08:48 40 MG Calcium Carbonate (Tums Chew Tab) 1,000 mg Q1H PRN PO 10/05/16 23:00 11/04/16 22:59 10/05/16 23:04 1,000 MG Gadobutrol (Gadavist) 9 mmol UD PRN IV 10/06/16 01:15 10/10/16 01:14 Cyanocobalamin (Vitamin B-12 Tab) 1,000 mcg QAM PO 10/06/16 09:00 11/05/16 08:59 10/07/16 08:48 1,000 MCG Clopidogrel Bisulfate (plAVix TAB) 75 mg QAM PO 10/07/16 09:00 11/06/16 08:59 10/07/16 08:48 75 MG Enoxaparin Sodium (Lovenox Inj) 40 mg Q24H SQ 10/06/16 21:00 11/05/16 20:59 10/06/16 21:10 40 MG Impression 1. Rather significant-sized acute stroke in the medial left temporal head region as well as the left thalamus. 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 The left vertebral is narrow and there is occlusion at the level of the posterior inferior cerebellar artery. There is no evidence for brainstem stroke however. Clinically, his dysarthria has improved and he has no aphasia.. He has mild right hemiparesis, but the face is spared. 2. 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 Mild old small vessel ischemia seen on MRI Plan 1. Continue Plavix 75 mg daily There is no indication for anticoagulation. 2. Check echocardiogram results 3. Physical, occupational, and speech therapy consults. Increase activity as able. 4. Consider transfer to [facility] when medically stable I have no further neurologic testing or treatment recommendations to make at this time. Please contact me if I can be further assistance.
--- NOTE | 2016-10-07 18:23 | Progress Note ---
Subjective Date of Service: Oct 07, 2016. Subjective Pt evaluation today including: conversation w/ patient, physical exam, chart review, lab review, review of studies, review of inpatient medication list Pain: none Voiding: no voiding problems, no incontinence Pt is seen and examined by me. Patient is feeling better today with a slightly more movement of his right side. He has no pain or headaches.Pt denies Cp, SOB , dizziness, palpitation and LOC. Nursing reports no new events. Problem List Medical Problems: (1) Delirium Status: Acute Review of Systems All Other Systems: Reviewed and Negative Medications Medications (Trade) Dose Ordered Sig/Malick Route Start Time Stop Time Status Last Admin Dose Admin Simvastatin (Zocor Tab) 10 mg QPM PO 10/06/16 21:00 11/05/16 20:59 10/06/16 21:09 10 MG Clopidogrel Bisulfate (plAVix TAB) 75 mg QAM PO 10/07/16 09:00 11/06/16 08:59 10/07/16 08:48 75 MG Enoxaparin Sodium (Lovenox Inj) 40 mg Q24H SQ 10/06/16 21:00 11/05/16 20:59 10/06/16 21:10 40 MG Objective Vital Signs Date Time Temp Pulse Resp B/P Pulse Ox O2 Delivery O2 Flow Rate FiO2 10/07/16 16:00 93 Room Air 10/07/16 15:17 37.1 67 18 147/83 93 Room Air 62 79/43 80 149/116 10/07/16 12:00 95 Room Air 10/07/16 11:33 37.2 72 18 108/69 94 Room Air 10/07/16 08:00 92 Room Air 10/07/16 07:49 37.7 75 20 131/75 93 Room Air 74 134/78 91 118/48 10/07/16 04:00 Room Air 10/07/16 03:10 37.1 77 17 142/84 92 Room Air 10/06/16 23:45 Room Air 10/06/16 23:21 88 147/100 10/06/16 23:19 88 153/94 10/06/16 23:12 37.3 55 18 153/82 94 Room Air 10/06/16 20:00 Room Air 10/06/16 19:12 37.0 98 20 128/82 93 Room Air Physical Exam General Appearance: no apparent distress Eyes: EOMI Neck: supple Respiratory/Chest: lungs clear, normal breath sounds, no respiratory distress Cardiovascular: regular rate, rhythm, no edema, no gallop, no murmur Abdomen: normal bowel sounds, soft, no organomegaly Extremities: non-tender, no pedal edema, no calf tenderness Neurologic/Psychiatric: alert, normal mood/affect, oriented x 3 Skin: normal color, no rash Laboratory Results Last 24 Hours Test 10/06/16 19:00 10/07/16 06:02 Prothrombin Time 10.8 SECONDS Prothromb Time International Ratio 1.0 Triglycerides Level 127 mg/dl Cholesterol Level 128 mg/dl HDL Cholesterol 33 mg/dl LDL Cholesterol, Calculated 70 mg/dl VLDL Cholesterol, Calculated 25 mg/dl Cholesterol/HDL Ratio 3.9 Assessment and Plan 1) CVA ischemic with right hemiparesis -Continue Plavix. PT/OT/Speech therapy. Follow Echocardiogram. Transfer to [facility] when medically stable, no indication for anticoagulation per neurology. Activity as per PT. 2) Hyperlipidemia, cont Meds 3) monoclonal gammopathy - chronic condition 4) Anemia - chronic DVT prophylaxis - SCDs, sub-q lovenox. Continued [facility] stay due to: home environment unsafe for pt Discharge planning: rehab hospital
[2016-10-07] MEDS: ENOXAPARIN 40 MG/0.4 ML SYR SQ SCH (20:11)
[2016-10-07] MEDS: SIMVASTATIN 10 MG TAB PO SCH (20:11)
[2016-10-08 03:19] VITALS: BP 129/79; PULSE 74; TEMP 37.3; O2SAT 93
[2016-10-08 07:47] VITALS: BP_SYST 126; BP_SYST 138; BP_SYST 139; BP_DIAS 68; BP_DIAS 75; BP_DIAS 79; PULSE 75; PULSE 76; PULSE 87; TEMP 37.2; O2SAT 93
[2016-10-08] MEDS: CLOPIDOGREL BISULFATE 75 MG TAB PO SCH (08:50)
[2016-10-08] MEDS: NSS + 20MEQ KCL 1000ML 1,000 ML IV SCH (08:50)
[2016-10-08] MEDS: PANTOprazole SOD 40 MG TAB PO SCH (08:51)
[2016-10-08] MEDS: CYANOCOBALAMIN 500 MCG TAB (VIT B-12) PO SCH (08:51)
[2016-10-08] MEDS: CEROVITE ADV FORMULA TAB PO SCH (08:52)
[2016-10-08] MEDS ORDERED: NURSING VERBAL MED ORDER ONE ×2 (09:45→10:30)
[2016-10-08] MEDS ORDERED: POLYETHYLENE (MIRALAX) 17 GM PACK PO SCH (10:00)
[2016-10-08 10:37] VITALS: BP 139/75; PULSE 87; TEMP 37.2; O2SAT 93
[2016-10-08 10:50] VITALS: BP 153/87; PULSE 66; TEMP 36.7; O2SAT 97
--- NOTE | 2016-10-08 15:23 | Progress Note ---
Subjective Date of Service: Oct 08, 2016. Subjective Pt evaluation today including: conversation w/ patient, physical exam, chart review, review of inpatient medication list Voiding: no voiding problems Pt is seen and examined by me. Patient is feeling better today with a slightly more movement of his right side however still feel week on right side. He has no pain or headaches.Pt denies Cp, SOB, dizziness, palpitation and LOC. Nursing reports no new events. Problem List Medical Problems: (1) Delirium Status: Acute Review of Systems All Other Systems: Reviewed and Negative Medications Medications (Trade) Dose Ordered Sig/Malick Route Start Time Stop Time Status Last Admin Dose Admin Polyethylene (Miralax Powder Packet) 17 gm 1000 PO 10/08/16 10:00 10/08/16 12:00 DC 10/08/16 10:04 17 GM Objective Vital Signs Date Time Temp Pulse Resp B/P Pulse Ox O2 Delivery O2 Flow Rate FiO2 10/08/16 10:50 36.7 66 18 153/87 97 Room Air 10/08/16 10:37 37.2 87 19 93 2.0 10/08/16 08:00 Room Air 10/08/16 07:47 37.2 75 19 126/68 93 Room Air 76 138/79 87 139/75 10/08/16 04:02 Room Air 10/08/16 03:19 37.3 74 20 129/79 93 Room Air 10/08/16 00:02 Room Air 10/07/16 23:42 90 178/87 10/07/16 23:40 83 158/97 10/07/16 23:38 36.9 73 22 138/79 96 Room Air 10/07/16 20:04 Room Air 10/07/16 18:46 37.0 72 19 137/81 93 Room Air 10/07/16 16:00 93 Room Air Physical Exam Eyes: EOMI Neck: supple, no JVD Respiratory/Chest: chest non-tender, lungs clear, no respiratory distress Cardiovascular: regular rate, rhythm, no murmur Abdomen: normal bowel sounds, non tender, soft Neurologic/Psychiatric: alert, normal mood/affect, oriented x 3, + motor weakness (on right 4/5) Skin: no rash Laboratory Results Last Resulted CBC 10/05/16 19:40 Red Blood Count 4.81, Mean Corpuscular Volume 87.7, Mean Corpuscular Hemoglobin 29.9, Mean Corpuscular Hemoglobin Concent 34.1, Mean Platelet Volume 9.4, Neutrophils (%) (Auto) 53.6, Lymphocytes (%) (Auto) 31.4, Monocytes (%) (Auto) 7.2, Eosinophils (%) (Auto) 6.7, Basophils (%) (Auto) 0.5, Neutrophils # (Auto) 4.30, Lymphocytes # (Auto) 2.52, Monocytes # (Auto) 0.58, Eosinophils # (Auto) 0.54, Basophils # (Auto) 0.04 Last Resulted BMP 10/05/16 19:40 Assessment and Plan 1) CVA ischemic with right hemiparesis -Continue Plavix. PT/OT/Speech therapy. Transfer to [facility] in morning discontinue tele. no indication for anticoagulation per neurology Activity as per PT/OT. 2) Hyperlipidemia, cont Meds 3) monoclonal gammopathy - chronic condition 4) Anemia - chronic DVT prophylaxis - SCDs, sub-q lovenox. Continued [facility] stay due to: home environment unsafe for pt Discharge planning: rehab hospital
[2016-10-08 17:06] VITALS: BP 125/78; PULSE 62; TEMP 37.1; O2SAT 96
[2016-10-08] MEDS: SIMVASTATIN 10 MG TAB PO SCH (20:57)
[2016-10-08] MEDS: ENOXAPARIN 40 MG/0.4 ML SYR SQ SCH (20:58)
[2016-10-08 23:28] VITALS: BP 130/81; PULSE 69; TEMP 37.6; O2SAT 96
[2016-10-09 07:01] LABS: HEMATOCRIT 41.1 % (42-52); MEAN CELL VOLUME 89.7 fL (80-100); MEAN CORPUSCULAR HEMOGLOBIN 29.9 pg (25-34); MEAN CORPUSCULAR HGB CONC 33.3 g/dl (32-36); MEAN PLATELET VOLUME 9.4 fL (7.4-10.4); PLATELET COUNT 162 K/uL (130-400); RED BLOOD COUNT 4.58 M/uL (4.7-6.1); WHITE BLOOD COUNT 7.61 K/uL (4.8-10.8)
[2016-10-09 07:18] VITALS: BP 132/79; PULSE 70; TEMP 36.4; O2SAT 94
[2016-10-09] MEDS: CLOPIDOGREL BISULFATE 75 MG TAB PO SCH (07:41)
[2016-10-09] MEDS: PANTOprazole SOD 40 MG TAB PO SCH (07:41)
[2016-10-09] MEDS: CEROVITE ADV FORMULA TAB PO SCH (07:41)
[2016-10-09] MEDS: CYANOCOBALAMIN 500 MCG TAB (VIT B-12) PO SCH (07:42)
[2016-10-09] MEDS ORDERED: DOCUSATE SODIUM 100 MG CAP PO SCH ×2 (09:30→20:00)
[2016-10-09] MEDS ORDERED: SENNA 8.6 MG TAB PO SCH (10:00)
--- NOTE | 2016-10-09 10:03 | DIAGNOSTIC IMAGING REPORT ---
TWO VIEW CHEST CLINICAL HISTORY: Confusion. Fever. FINDINGS: AP and lateral chest radiographs are compared to study dated 10/05/2016. Correlation is made with chest CT dated 12/30/2012. The heart is enlarged and there is atherosclerotic calcification of the thoracic aorta. A large hiatal hernia is identified. Chronic interstitial thickening is unchanged. There are bibasilar airspace opacities. No pleural effusion is identified. There is no pneumothorax. The skeletal structures are osteopenic. Degenerative change is noted throughout the thoracic spine. IMPRESSION: 1. Cardiomegaly without radiographic evidence of congestive failure. 2. There are bibasilar airspace opacities. This could represent atelectasis and/or developing pneumonia. Clinical correlation will be required. 3. Large hiatal hernia. Electronically signed by: Tomi Roberts M.D. 10/09/2016 10:02 AM Dictated Date/Time: 10/09/2016 9:58 AM
[2016-10-09 11:13] LABS: URINE APPEARANCE CLEAR (CLEAR); URINE BILIRUBIN NEG (NEG); URINE COLOR YELLOW; URINE NITRITE NEG (NEG); URINE SPECIFIC GRAVITY 1.015 (1.000-1.030); UROBILINOGEN NEG (NEG)
[2016-10-09 11:14] LABS: MANUAL MICROSCOPIC REQUIRED? NO; REVIEW REQ? NO
[2016-10-09] MEDS ORDERED: LVNIS40 SQ (11:34)
[2016-10-09] MEDS ORDERED: SIMV40TA4 PO (11:34)
[2016-10-09] MEDS ORDERED: PLV75 PO (11:34)
[2016-10-09] MEDS ORDERED: OMEP40CA41 PO (11:34)
[2016-10-09] MEDS ORDERED: METR-163 PO (11:34)
[2016-10-09] MEDS ORDERED: SNK PO (11:34)
[2016-10-09] MEDS ORDERED: LEVO500T19 PO (11:34)
[2016-10-09] MEDS ORDERED: CLC100 PO (11:34)
--- NOTE | 2016-10-09 11:37 | Discharge Instructions ---
Discharge Instructions Date of Service Oct 09, 2016. Admission Reason for Admission: Confusion And Disorientation Discharge Discharge Diagnosis / Problem: left sided temporal lobe & thalamic stroke Discharge Goals Goal(s): Learn about illness, Diagnostic testing, Therapeutic intervention Activity Recommendations Activity Limitations: per Instructions/Follow-up section . Instructions / Follow-Up Instructions / Follow-Up Risk Factors for Stroke: You can reduce your chances of stroke by working with your medical provider to adopt a healthy lifestyle. Some specific ways to lower your chance of stroke are: * If you are a smoker, now is the time to stop smoking cigarettes * If you are diabetic, improve the control of your blood sugars * Avoid excessive amounts of alcohol * Control high blood pressure * Lose weight if you are overweight * Be sure to lead an active lifestyle * Eat a healthy diet low in salt, cholesterol and fat You should know about other risk factors for stroke that you are unable to control. These include: * Age 55 years or older * Male gender * Certain racial groups: , or / * Family History of Stroke, Mini stroke or Heart Attack * Sickle Cell Disease Follow Up: It is important for you to keep your follow up appointments with your medical provider. 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 Who to Call and When: Medical Emergencies: Call 911 immediately if you experience any of the following warning signs and symptoms of Stroke: * Sudden numbness or weakness of the face, arm or leg, especially on one side of the body * Sudden confusion, trouble speaking or understanding * Sudden trouble seeing in one or both eyes * Sudden trouble walking, dizziness, loss of balance or coordination * Sudden severe headache with no cause Do not delay calling 911 if you experience any warning signs or symptoms of a stroke. Delay in seeking medical attention may affect what treatments can be given to you. . Non-Emergent Contact Non-Emergency issues call your: Primary Care Provider Call Non-Emergent contact if: temperature is above 100.5, your pain is unusual for you, your pain is concerning you, you have any medication questions . . "Provider Documentation" section prepared by Kevin Sarmiento. Stroke Core Measures Reason no t-PA for Stroke: Treatment not indicated Reason no antithrom by day 2: Treatment provided - N/A Reason no antithrom at D/C: Treatment provided - N/A Reason no statin at D/C: Treatment provided - N/A Reason no anticoag w/a fib: Treatment not indicated VTE Core Measure Inpt VTE Proph given/why not?: Enoxaparin (Lovenox)SQ, SCD's
--- NOTE | 2016-10-09 11:43 | Discharge Instructions ---
Discharge Instructions Date of Service Oct 09, 2016. 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 Additional Information Patient informed of condition: Yes Advance Directives: No DNR: No Level of Care: Acute Rehab Communicable Disease: No Prognosis: Improving Oxygen at (LPM): none Smyth Catheter: No Instructions / Follow-Up Instructions / Follow-Up Please see the following - 1. Dr. Justin Livingston, [facility] Neurology, within 2-3 weeks after discharge from [facility]. 2. PCP within 1 week of discharge from [facility]. 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 Who to Call and When: Medical Emergencies: If at any time you feel your situation is an emergency, please call 911 immediately. . Non-Emergent Contact Non-Emergency issues call your: Primary Care Provider Call Non-Emergent contact if: temperature is above 100.5, your pain is unusual for you, your pain is concerning you, you have any medication questions . . "Provider Documentation" section prepared by Kevin Sarmiento. Core Measure Problem Core Measures: Stroke Stroke Core Measures Reason no t-PA for Stroke: Treatment not indicated Reason no antithrom by day 2: Treatment provided - N/A Reason no antithrom at D/C: Treatment provided - N/A Reason no statin at D/C: Treatment provided - N/A Reason no anticoag w/a fib: Treatment not indicated
[2016-10-09 12:11] VITALS: BP 132/79; PULSE 70; TEMP 36.4; O2SAT 94
--- NOTE | 2016-10-09 16:28 | Discharge Summary ---
Discharge Summary Date of Service Oct 09, 2016. Discharge Summary Admission Date: Oct 05, 2016 at 21:51 Discharge Date: Oct 09, 2016 Discharge Disposition: Rehab ([facility] ) Principal Diagnosis: acute stroke Problems/Secondary Diagnoses: 1. metabolic encephalopathy 2nd to stroke - resolved 2. acute kidney injury - resolved 3. hyperlipidemia 4. hypokalemia 5. GERD 6. h/o MGUS 7. possible bilateral lower lobe pneumonia Immunizations: Have You Had Influenza Vaccine: Yes Influenza Vaccine Date: May 08, 2012 History of Tetanus Vaccine?: Unknown History of Pneumococcal: Yes History of Hepatitis B Vaccine: No Procedures: 1. echocardiogram: -- Conclusions -- Left ventricular systolic function is normal. No regional wall motion abnormalities noted. Ejection Fraction = 65-70%. There is moderate concentric left ventricular hypertrophy. Grade I diastolic dysfunction, (abnormal relaxation pattern). There is mild tricuspid regurgitation. Injection of contrast documented no interatrial shunt. 2. CT head: normal. 3. MRA neck: IMPRESSION: 1. Limited study due to patient motion. 2. 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 3. 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 MRA brain: IMPRESSION: 1. Occlusion left posterior cerebral artery. 2. Small caliber left vertebral artery is occluded at the junction with the posterior inferior cerebellar artery 5. MRI brain: IMPRESSION: 1. There are foci of restricted diffusion within the medial left temporal lobe and within the left thalamus consistent with acute to subacute ischemia. 2. No additional foci of acute ischemia are suspected. There is no hemorrhage or significant mass effect. Consultations: 1. neurology - Justin Livingston MD 2. PT, OT, speech Medication Reconciliation New Medications: Levofloxacin (Levaquin) 500 Mg Tab 1 TAB PO DAILY for 7 Days, #7 TAB Metronidazole (Flagyl) 500 Mg Tab 500 MG PO TID for 7 Days, #21 TAB 0 Refills Clopidogrel Bisulfate (Clopidogrel) 75 Mg Tab 75 MG PO QAM, #30 TAB 5 Refills Docusate Sodium (Docusate Sodium) 100 Mg Cap 100 MG PO BID, #30 CAP 1 Refill Enoxaparin (Enoxaparin Sodium) 40 Mg/0.4 Ml Inj 40 MG SQ Q24H, #14 0 Refills Senna (Senna Lax) 8.6 Mg Tab 17.2 MG PO QAM, #30 TAB 1 Refill Changed Medications: Omeprazole (Prilosec) 40 Mg Cap 1 CAP PO DAILY for 30 Days, #30 CAP 5 Refills (Changed from: Omeprazole ( Prilosec) 20 Mg Cap 20 Mg PO DAILY) Simvastatin (Zocor) 40 Mg Tab 1 TAB PO HS for 30 Days, #30 TAB 5 Refills (Changed from: Simvastatin (Zocor) 10 Mg Tab 10 Mg PO QPM) Continued Medications: Cyanocobalamin (Vitamin B12) 1,000 Mcg Tab UNIT(INT) DAILY Ocuvite Preservision (Ocuvite Preservision) 1 Tab Tab 1 TAB PO DAILY, TAB Discontinued Medications: Hydrochlorothiazide (Hydrochlorothiazide) 12.5 Mg Tab 1 TAB PO DAILY, #1 Discharge Exam Physical Exam: General Appearance: no apparent distress ENT: pharynx normal Neck: no JVD Respiratory/Chest: lungs clear, no respiratory distress, no accessory muscle use Cardiovascular: regular rate, rhythm, no gallop, normal peripheral pulses, + systolic murmur (1/6 NORMAN LSB) Abdomen / GI: normal bowel sounds, non tender, soft, no organomegaly Extremities: no pedal edema Neurologic/Psychiatric: alert, normal mood/affect, normal reflexes, oriented x 3, + motor weakness (scant right-sided weakness, 4-5/5; no dysarthria or asphasia; no facial droop ) Skin: no rash Hospital Course HISTORY OF PRESENT ILLNESS: The patient is an 86-year-old male who presented to the emergency department with altered mental status and imbalance along with memory loss that began while he was waiting for food at a restaurant. His first symptoms were that of feeling woozy, and reportedly started to lean to his right side and was snoring while at the restaurant. HOSPITAL COURSE: The patient was ultimately found to have left-sided strokes in the left temporal lobe as well as left thalamus as seen on MRI brain. 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 He was seen in consultation by neurology who recommended plavix in zoe of aspirin for secondary stroke prevention. Echocardiogram and telemetry failed to show an embolic cause of his stroke ( atrial or ventricular thrombus, a. fib, etc). Although he had a stenotic left vertebral artery he did NOT have any stroke of the posterior brain/posterior circulation territory on any imaging study. He was seen in consult by PT, OT and speech. Speech therapy cleared him for a regular diet with thin liquids. PT and OT both recommended inpatient rehab. He will transfer to [facility] for such. Although LDL was 70 on lipid profile his simvastatin was increased from 10mg to 40mg daily for optimal "high intensity statin" dosing. Lastly, in the 48 hours prior to discharge, the patient had low-grade temperatures of about 37.5 degrees. U/a was normal. Chest x-ray showed bibasilar infiltrates. It is possible that his low-grade temperatures were due to a brewing pneumonia. Perhaps he had an aspiration event in the setting of his stroke and mental status changes. Thus, to cover for gram negatives and anaerobes, he was placed on a 7-day course each of levaquin & flagyl, respectively. At time of discharge the patient's son confirmed that his father's mental status was back to baseline. Total Time Spent: Greater than 30 minutes This includes examination of the patient, discharge planning, medication reconciliation, and communication with other providers. Discharge Instructions Please refer to the electronic Patient Visit Report (Discharge Instructions) for additional information. Follow-Up 1. see Dr. Justin Livingston, neurology, within 2-3 weeks 2. see PCP within 1 week of discharge from [facility] Additional Copies To Aidan Johnson M.D.; [facility]; Bruce Reyna M.D.; Wendy Livingston M.D.
== END 2016-10-09 12:59 | DRG 64 ==
LOC: ENRESERVDT → ENRESERVTM → EDBD 19:17 → C.EDC 19:18 → C.2T 21:51 → C.MS4W 10-08 10:50
PROVIDERS: ADMIT Hospitalist; ATTEND Internal Medicine
DX: I63.532 Cerebral infarction due to unspecified occlusion or stenosis of left posterior cerebral artery (principal); G93.41 Metabolic encephalopathy; J18.9 Pneumonia, unspecified organism; N17.9 Acute kidney failure, unspecified; G81.91 Hemiplegia, unspecified affecting right dominant side; D47.2 Monoclonal gammopathy; Z79.899 Other long term (current) drug therapy; K44.9 Diaphragmatic hernia without obstruction or gangrene; E87.6 Hypokalemia; E78.00 Pure hypercholesterolemia, unspecified; I10 Essential (primary) hypertension; K21.9 Gastro-esophageal reflux disease without esophagitis; E53.8 Deficiency of other specified B group vitamins; E78.5 Hyperlipidemia, unspecified; Z87.891 Personal history of nicotine dependence; R47.1 Dysarthria and anarthria; D64.9 Anemia, unspecified; I35.0 Nonrheumatic aortic (valve) stenosis

== ENCOUNTER 2016-10-26 11:55 | Emergency (ER) | payer OTHER ==
[~2016-10-26] VITALS: Ht 167.6 cm; Wt 84.0 kg
[~2016-10-26 11:55] MED LIST changes: +CLC100 PO; -HYDR12.55 PO; +LVNIS40 SQ; -METF-384 PO; +METR-163 PO; -OMEP20CA9 PO; +OMEP40CA41 PO; +PLV75 PO; -SIMV10TA5 PO; +SIMV40TA4 PO; +SNK PO
[2016-10-26 11:58] VITALS: TEMP 36.5; Ht 167.6 cm; Wt 84.0 kg
--- NOTE | 2016-10-26 12:23 | EMERGENCY ROOM VISIT NOTE ---
History Report prepared by Fernando: Beth Lr Under the Supervision of: Jeff MagdalenoO. First contact with patient: 12:14 Chief Complaint: URINARY SYMPTOMS Stated Complaint: FREQUIANT URINATION Nursing Triage Summary: pt states he thinks he has a uti sx for the past 2 days History of Present Illness The patient is a 86 year old male who presents to the Emergency Room with complaints of persistent urinary frequency that started 2 days ago. He notes that he has to urinate about every hour. During each episode of urination, he voids a small amount of urine. He has not had an appetite recently. He has also been feeling more tired compared to baseline. The patient notes that he has had urinary frequency 4-5 times in the past and was treated with antibiotics for a UTI. He has not had a UTI in several years. Denies nausea, vomiting, back pain, shortness of breath, hematuria, or other complaints. No history of prostate infection. He is not on any medications for his prostate. Source of History: patient Onset: 2 days ago Position: other () Quality: other (frequency) Timing: other (persistent) Associated Symptoms: No SOB, No back pain, No nausea, No vomiting Note: Other symptoms: decreased appetite, tired Review of Systems See HPI for pertinent positives & negatives. A total of 10 systems reviewed and were otherwise negative. Past Medical & Surgical Medical Problems: (1) Confusion and disorientation (2) MGUS (monoclonal gammopathy of unknown significance) Family History No significant family history Social History Smoking Status: Former Smoker Drug Use: none Marital Status: in relationship Housing Status: lives alone Occupation Status: employed Current/Historical Medications Scheduled Clopidogrel Bisulfate (Clopidogrel), 75 MG PO QAM Cyanocobalamin (Vitamin B12), UNIT(INT) DAILY Docusate Sodium (Docusate Sodium), 100 MG PO BID Levofloxacin (Levaquin), 500 MG PO DAILY Omeprazole (Prilosec), 1 CAP PO DAILY Simvastatin (Zocor), 1 TAB PO HS Allergies Coded Allergies: No Known Allergies (Unverified , 10/05/16) Physical Exam Vital Signs Date Time Temp Pulse Resp B/P Pulse Ox O2 Delivery O2 Flow Rate FiO2 10/26/16 14:20 114/80 10/26/16 13:53 59 18 97/56 95 Room Air 10/26/16 11:58 36.5 95 20 128/83 93 Physical Exam GENERAL: Patient is awake, alert, and in no acute distress. Patient is resting comfortably and showing no signs of anxiety EYES: The conjunctivae are clear. The pupils are round and reactive. EARS, NOSE, MOUTH AND THROAT: The nose is without any evidence of any deformity. Mucous membranes are moist tongue is midline NECK: The neck is nontender and supple. RESPIRATORY: Normal respiratory effort is noted there is no evidence of wheezing rhonchi or rales CARDIOVASCULAR: Regular rate and rhythm noted there no murmurs rubs or gallops normal S1 normal S2 GASTROINTESTINAL: The abdomen is soft. Bowel sounds are present in all quadrants. Abdomen is nontender MUSCULOSKELETAL/EXTREMITIES: There is no evidence of gross deformity full range of motion is noted in the hips and shoulders SKIN: Trace pedal edema bilaterally. NEUROLOGIC: Patient is awake alert and oriented x3 Medical Decision & Procedures Laboratory Results Test 10/26/16 12:17 Urine Color DK YELLOW Urine Appearance CLEAR (CLEAR) Urine pH 6.0 (4.5-7.5) Urine Specific [place] 1.024 (1.000-1.030) Urine Protein 1+ (NEG) Urine Glucose (UA) NEG (NEG) Urine Ketones NEG (NEG) Urine Occult Blood TRACE (NEG) Urine Nitrite NEG (NEG) Urine Bilirubin NEG (NEG) Urine Urobilinogen NEG (NEG) Urine Leukocyte Esterase MODERATE (NEG) Urine WBC (Auto) >30 /hpf (0-5) Urine RBC (Auto) 0-4 /hpf (0-4) Urine Hyaline Casts (Auto) 10-30 /lpf (0-5) Urine Epithelial Cells (Auto) 0-5 /lpf (0-5) Urine Bacteria (Auto) 1+ (NEG) Laboratory results per my review. Medications Administered Medications (Trade) Dose Ordered Sig/Malick Route Start Time Stop Time Status Last Admin Dose Admin Levofloxacin (Levaquin Tab) 750 mg NOW STAT PO 10/26/16 13:17 10/26/16 13:18 DC 10/26/16 13:52 750 MG ED Course 1217: The patient was evaluated in room C8. A complete history and physical examination were performed. 1317: Ordered Levofloxacin 750 mg PO. 1320: Upon reevaluation, the patient is resting comfortably. I discussed the results and treatment plan with the patient. He verbalized agreement of the treatment plan. The patient was discharged home. Medical Decision Differential diagnosis in this patient could include cystitis prostatitis kidney stone pyelonephritis and other differentials were considered. Nursing notes reviewed. Additional history is obtained from the patient's family member. The patient is an 86-year-old male who presented to the emergency department for an evaluation of dysuria and frequency. The patient's urinalysis appear to be consistent with urinary tract infection. He states that he has had similar symptoms in the past. The urine was sent for culture. The patient was not in urinary retention. He was encouraged to continue all medications as prescribed and follow-up with his primary care physician tomorrow as scheduled. The patient was also encouraged to discuss the possibility with his primary care physician whether or not he may require medications her workup for his prostate or possibly a referral to a urologist if symptoms do not improve on antibiotics. Impression Primary Impression: Cystitis Additional Impression: Urinary tract infection Scribe Attestation The scribe's documentation has been prepared under my direction and personally reviewed by me in its entirety. I confirm that the note above accurately reflects all work, treatment, procedures, and medical decision making performed by me. Departure Information Dispostion Home / Self-Care Prescriptions Levofloxacin (Levaquin) 500 Mg Tab 500 MG PO DAILY, #7 TAB Prov: Eric York, DO 10/26/16 Referrals No Doctor, Assigned (PCP) RV. Malik MD Patient Instructions ED UTI Cystitis Male, [facility] Additional Instructions Follow-up with your family tomorrow as scheduled. Drink plenty clear liquids. Continue all medications as prescribed. Discuss the possibility with your family the may need to be started on a prostate medication or possibly a referral to a urologist to further evaluate the cause of your symptoms. Return to the emergency department if symptoms worsen or if need arises. Problem Qualifiers Additional Impression: Urinary tract infection Urinary tract infection type: acute cystitis Hematuria presence: without hematuria Qualified Codes: N30.00 - Acute cystitis without hematuria
[2016-10-26 12:53] LABS: URINE APPEARANCE CLEAR (CLEAR); URINE BILIRUBIN NEG (NEG); URINE COLOR DK YELLOW; URINE EPITHELIAL CELL AUTO 0-5 /lpf (0-5); URINE NITRITE NEG (NEG); URINE SPECIFIC GRAVITY 1.024 (1.000-1.030); UROBILINOGEN NEG (NEG)
[2016-10-26 13:11] LABS: MANUAL MICROSCOPIC REQUIRED? NO; REVIEW REQ? NO
[2016-10-26] MEDS ORDERED: LEVOFLOXACIN 250 MG TAB PO STA (13:17)
[2016-10-26] MEDS ORDERED: LEVO-366 PO (13:25)
[2016-10-26 13:53] VITALS: PULSE 59; O2SAT 95
[2016-10-26 14:20] VITALS: BP 114/80
== END 2016-10-26 14:30 | disposition home or self-care (01) ==
LOC: C.EDB 11:57 → C.EDC 14:30
DX: N30.90 Cystitis, unspecified without hematuria (principal); D47.2 Monoclonal gammopathy; Z87.440 Personal history of urinary (tract) infections; Z79.899 Other long term (current) drug therapy; Z87.891 Personal history of nicotine dependence

== ENCOUNTER → 2016-11-15 | Outpatient (CLI) | payer OTHER ==
[~2016-11-15] MED LIST changes: +LEVO-366 PO; -LVNIS40 SQ; -METR-163 PO; -MULT-190 PO; -SNK PO
--- NOTE | 2016-11-15 14:16 | DIAGNOSTIC IMAGING REPORT ---
CHEST 2 VIEWS ROUTINE CLINICAL HISTORY: Abnormal chest x-ray. COMPARISON STUDY: 10/09/2016 FINDINGS: The cardiac and mediastinal contours remain stable. There is a retrocardiac opacity consistent with a hiatal hernia. There is stable aortic tortuosity. There are bibasilar opacities likely atelectatic. Haziness of the lung bases, likely relates to overlying soft tissue.[ IMPRESSION: 1. Stable findings 2. Hiatal hernia 3. Basilar opacities, likely atelectatic Electronically signed by: Juan Tate M.D. 11/15/2016 2:14 PM Dictated Date/Time: 11/15/2016 2:12 PM
[2016-11-15 14:48] LABS: BASO % 0.2 %; BASO ABS # 0.02 K/uL (0-0.2); COMPLETE YES; EOS % 6.4 %; HEMATOCRIT 43.2 % (42-52); IG% 0.4 %; LYMPH % 22.3 %; LYMPH ABS # 1.84 K/uL (1.2-3.4); MEAN CELL VOLUME 89.3 fL (80-100); MEAN CORPUSCULAR HEMOGLOBIN 30.2 pg (25-34); MEAN CORPUSCULAR HGB CONC 33.8 g/dl (32-36); MEAN PLATELET VOLUME 9.6 fL (7.4-10.4); MONO % 7.6 %; NEUT % 63.1 %; PLATELET COUNT 187 K/uL (130-400); RED BLOOD COUNT 4.84 M/uL (4.7-6.1); WHITE BLOOD COUNT 8.24 K/uL (4.8-10.8)
[2016-11-15 18:54] LABS: ALT/SGPT 20 U/L (12-78); AST/SGOT 18 U/L (15-37); BLOOD UREA NITROGEN 20 mg/dl (7-18); BUN/CREATININE RATIO 16.5 (10-20); CARBON DIOXIDE 32 mmol/L (21-32); CHLORIDE 102 mmol/L (98-107); GLUCOSE 88 mg/dl (70-99); POTASSIUM 3.5 mmol/L (3.5-5.1); SODIUM 141 mmol/L (136-145)
[2016-11-15 18:57] LABS: ALB/GLOB RATIO 0.7 (0.9-2); ALKALINE PHOSPHATASE 132 U/L (45-117)
== END | disposition home or self-care (01) ==
LOC: C.RAD1850 13:40
PROVIDERS: ATTEND Internal Medicine
DX: R91.8 Other nonspecific abnormal finding of lung field (principal); I63.9 Cerebral infarction, unspecified; E55.9 Vitamin D deficiency, unspecified; D64.9 Anemia, unspecified; R26.9 Unspecified abnormalities of gait and mobility

== ENCOUNTER → 2017-05-09 | Outpatient (CLI) | payer OTHER ==
[~2017-05-09] MED LIST changes: -LEVO-366 PO
[2017-05-09 10:12] LABS: BASO % 0.6 %; BASO ABS # 0.04 K/uL (0-0.2); COMPLETE YES; EOS % 7.2 %; HEMATOCRIT 37.5 % (42-52); IG% 0.8 %; LYMPH % 29.8 %; LYMPH ABS # 1.87 K/uL (1.2-3.4); MEAN CELL VOLUME 89.7 fL (80-100); MEAN CORPUSCULAR HEMOGLOBIN 31.1 pg (25-34); MEAN CORPUSCULAR HGB CONC 34.7 g/dl (32-36); MEAN PLATELET VOLUME 9.2 fL (7.4-10.4); MONO % 9.1 %; NEUT % 52.5 %; PLATELET COUNT 170 K/uL (130-400); RED BLOOD COUNT 4.18 M/uL (4.7-6.1); WHITE BLOOD COUNT 6.28 K/uL (4.8-10.8)
[2017-05-09 10:45] LABS: ALB/GLOB RATIO 0.8 (0.9-2); ALT/SGPT 27 U/L (12-78); BLOOD UREA NITROGEN 25 mg/dl (7-18); BUN/CREATININE RATIO 22.6 (10-20); CALCIUM 9.2 mg/dl (8.5-10.1); CARBON DIOXIDE 27 mmol/L (21-32); CHLORIDE 107 mmol/L (98-107); GLUCOSE 100 mg/dl (70-99); POTASSIUM 3.7 mmol/L (3.5-5.1); SODIUM 141 mmol/L (136-145)
[2017-05-09 10:52] LABS: ALKALINE PHOSPHATASE 122 U/L (45-117); AST/SGOT 21 U/L (15-37); C-REACTIVE PROTEIN 0.58 mg/dl (0-0.29); CHOLESTEROL 124 mg/dl (0-200); CHOLESTEROL/HDL RATIO 2.5; HDL CHOLESTEROL 49 mg/dl; LDL CHOLESTEROL CALCULATED 51 mg/dl; TRIGLYCERIDES 122 mg/dl (0-150); VERY LOW DENSITY LIPOPROT CALC 24 mg/dl
[2017-05-09 11:37] LABS: LYME DISEASE AB IGG NEG (NEG); LYME DISEASE AB IGM NEG (NEG)
== END | disposition home or self-care (01) ==
LOC: C.LAB1850 09:09
PROVIDERS: ATTEND Internal Medicine
DX: D64.9 Anemia, unspecified (principal); I50.30 Unspecified diastolic (congestive) heart failure; E78.5 Hyperlipidemia, unspecified; E55.9 Vitamin D deficiency, unspecified; R53.83 Other fatigue

== ENCOUNTER → 2017-11-22 | Outpatient (CLI) | payer OTHER ==
[2017-11-22 13:18] LABS: BASO % 0.5 %; BASO ABS # 0.04 K/uL (0-0.2); EOS % 6.8 %; EOS ABS # 0.54 K/uL (0-0.5); HEMATOCRIT 39.3 % (42-52); HEMOGLOBIN 13.5 g/dL (14.0-18.0); IG# 0.06 K/uL (0.00-0.02); LYMPH % 25.1 %; LYMPH ABS # 1.99 K/uL (1.2-3.4); MEAN CELL VOLUME 90.3 fL (80-100); MEAN CORPUSCULAR HGB CONC 34.4 g/dl (32-36); MEAN PLATELET VOLUME 9.3 fL (7.4-10.4); MONO % 7.4 %; MONO ABS # 0.59 K/uL (0.11-0.59); NEUT % 59.4 %; NEUT ABS # 4.71 K/uL (1.4-6.5); PLATELET COUNT 200 K/uL (130-400); RED CELL DISTRIBUTION WIDTH CV 13.9 % (11.5-14.5); RED CELL DISTRIBUTION WIDTH SD 46.5 fL (36.4-46.3); WHITE BLOOD COUNT 7.93 K/uL (4.8-10.8)
[2017-11-22 14:50] LABS: ALBUMIN 3.4 gm/dl (3.4-5.0); ALT/SGPT 27 U/L (12-78); AST/SGOT 23 U/L (15-37); BLOOD UREA NITROGEN 19 mg/dl (7-18); CARBON DIOXIDE 28 mmol/L (21-32); CHOLESTEROL 139 mg/dl (0-200); CREATININE 1.09 mg/dl (0.60-1.40); GLUCOSE 96 mg/dl (70-99); POTASSIUM 3.7 mmol/L (3.5-5.1); SODIUM 136 mmol/L (136-145)
[2017-11-22 15:01] LABS: ALKALINE PHOSPHATASE 139 U/L (45-117); LDL CHOLESTEROL CALCULATED 60 mg/dl
== END | disposition home or self-care (01) ==
LOC: C.LAB1850 11:31
PROVIDERS: ATTEND Internal Medicine
DX: E78.5 Hyperlipidemia, unspecified (principal); E55.9 Vitamin D deficiency, unspecified; D64.9 Anemia, unspecified; I50.30 Unspecified diastolic (congestive) heart failure

== ENCOUNTER 2018-11-12 12:12 | Observation (INO) ==
[2018-11-12 12:43] LABS: Basophils # (auto) 0.02 K/uL (0-0.2); Basophils % (auto) 0.3 %; Eosinophils # (auto) 0.39 K/uL (0-0.5); Eosinophils % (auto) 5.5 %; Hematocrit (blood only) 38.2 % (42-52); Hemoglobin 12.5 g/dL (14.0-18.0); Immature Granulocytes # (auto) 0.02 K/uL (0.00-0.02); Immature Granulocytes % (auto) 0.3 %; Lymphocytes # (auto) 1.84 K/uL (1.2-3.4); Lymphocytes % (auto) 25.8 %; Mean Corpuscular Hgb Conc 32.7 g/dL (32-36); Mean Corpuscular Volume 92.9 fL (80-100); Mean Platelet Volume 9.3 fL (7.4-10.4); Neutrophils # (auto) 4.35 K/uL (1.4-6.5); Neutrophils % (auto) 61.1 %; Platelet Count 176 K/uL (130-400); RDW Standard Deviation 51.2 fL (36.4-46.3); Red Blood Count 4.11 M/uL (4.7-6.1); White Blood Count 7.12 K/uL (4.8-10.8)
--- NOTE | 2018-11-12 12:48 | XRay Report ---
XR chest 1V portable CLINICAL HISTORY: Dyspnea dyspnea COMPARISON STUDY: 05/28/2018 FINDINGS: Mild increase in cardiac size. Increased prominence of pulmonary vasculature. Diaphragms ar e smooth. IMPRESSION: Developing congestive heart failure The above report was generated using voice recognition software. It may contain grammatical, syntax or spelling errors. Electronically signed by: Froy Laws M.D. 11/12/2018 12:46 PM
[2018-11-12 12:53] LABS: INR 1.1 (0.9-1.1); Partial Thromboplastin Ratio 0.9; Partial Thromboplastin Time 23.6 Seconds (21.0-31.0); Prothrombin Time 10.9 Seconds (9.0-12.0)
[2018-11-12 13:04] LABS: Glucose 94 mg/dl (70-99)
[2018-11-12 13:05] LABS: Alanine Aminotransferase 23 U/L (12-78); Albumin Level 3.4 gm/dl (3.4-5.0); Aspartate Aminotransferase 18 U/L (15-37); BUN Creatinine Ratio 19.9 (10-20); Blood Urea Nitrogen 21 mg/dl (7-18); Calcium 9.5 mg/dl (8.5-10.1); Carbon Dioxide 28 mmol/L (21-32); Chloride 106 mmol/L (98-107); Creatinine Clr Calc Pharmacy 56.2 ml/min; Est GFR (Non-African American) 64.7; Magnesium 2.2 mg/dl (1.8-2.4); Potassium 3.8 mmol/L (3.5-5.1); Sodium 140 mmol/L (136-145)
[2018-11-12 13:06] LABS: Albumin Globulin Ratio 0.8 (0.9-2); Alkaline Phosphatase 113 U/L (45-117); Bilirubin,Total 0.7 mg/dl (0.2-1); Globulin 4.4 gm/dl (2.5-4.0); Total Protein 7.8 gm/dl (6.4-8.2); Troponin I < 0.015 ng/ml (0-0.045)
[2018-11-12] MEDS ORDERED: Heparin IV Standard *NO* Bolus IV ONE (13:50)
[2018-11-12] MEDS ORDERED: METOPROLOL TARTRATE 1 MG/ML VIAL IV STA (13:55)
[2018-11-12] MEDS ORDERED: APIXABAN 5 MG TABLET PO STA (14:00)
--- NOTE | 2018-11-12 15:09 | Emergency Department Note ---
Entered by Ginny Pollard acting as a scribe for History of Present Illness General Chief complaint: Abnormal Labs/Diagnostic Testing Stated complaint: IRREGULAR EKG Time Seen by Provider: 11/12/18 12:24 Source: patient History of Present Illness Provider complaint: shortness of breath Onset (ago): month(s) 4 Location: chest Pain Consistency: + other (persistent) Maximum Pain Intensity: 0 Quality: + other (shortness of breath) Associated symptoms: + other (leg swelling) The patient is a an 88 year old white male w/ PMHx of HLD, subdural hematoma, EGD, appendectomy, on ASA, who presents to the ED w/ CC of persistent shortness of breath beginning 4 months ago. He reports his symptoms have worsening in the past month. The patient states walking exacerbates his shortness of breath, while and sitting up or laying down does not affect it. He notes mild lower extremity swelling, which is not new. The patient denies chest pain, nausea, vomiting, cough, fever, chills. He denies known history of irregular heartbeat or blood clot. The patient was referred to the ED from a clinic today due to an abnormal EKG. Home Medications Home Medications Medication Instructions Recorded Confirmed Type I-Caps 1 tab PO QAM 05/01/18 11/12/18 History ascorbic acid (vitamin C) [Vitamin 500 mg PO QAM 05/01/18 11/12/18 History C] aspirin [Aspir-81] 81 mg PO QAM 05/01/18 11/12/18 History atorvastatin [Lipitor] 40 mg PO HS 05/01/18 11/12/18 History cholecalciferol (vitamin D3) 2,000 unit PO QAM 05/01/18 11/12/18 History [Vitamin D3] clopidogrel [Plavix] 75 mg PO QAM 05/01/18 11/12/18 History ferrous sulfate [iron] 325 mg PO QAM 05/01/18 11/12/18 History hydrochlorothiazide 25 mg PO QAM 05/01/18 11/12/18 History omega [id number] oil [Fish Oil] 1,000 mg PO QAM 05/01/18 11/12/18 History omeprazole 20 mg PO QAM 05/01/18 11/12/18 History vitamin E 400 unit PO QAM 05/01/18 11/12/18 History acetaminophen [Tylenol] 650 mg PO QAM 11/12/18 11/12/18 History tamsulosin 0.4 mg PO QAM 11/12/18 11/12/18 History testosterone enanthate 1 ml IM Q14D 11/12/18 11/12/18 History Allergies Allergy/AdvReac Type Severity Reaction Status Date / Time No Known Allergies Allergy Verified 11/12/18 13:46 Past Med/Surg History Medical History Encounter for pre-operative examination Confusion and disorientation Cystitis (Acute) Head injury (Acute) MGUS (monoclonal gammopathy of unknown significance) (Chronic) Scalp laceration (Acute) Subdural hematoma (Acute) Tooth avulsion (Acute) Urinary tract infection (Acute) Chronic back pain LUMBAR GERD (gastroesophageal reflux disease) Hiatal hernia Hx of gastric ulcer Hyperlipidemia SOB (shortness of breath) on exertion 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 TAKEN TO [facility]-R SIDED NUMBNESS/WEAKNESS-RESIDUAL EFFECT IMPAIRED MEMORY-WALKS WITH A SLIGHT LIMP-ON THINNER-F/U PCP Surgical History History of appendectomy History of colonoscopy History of esophagogastroduodenoscopy (EGD) Social History Preferred 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 and A total of 10 systems reviewed and were otherwise negative Physical Exam Vital Signs Vital Signs - 24 hr 11/12/18 12:14 11/12/18 12:33 11/12/18 12:35 Temperature 36.6 C Temperature Source Oral Sepsis Recent Fever Within 48 Hours No Sepsis New/Unexplained Change in Mental Status No Sepsis Action Taken by Nursing No Action Required Pulse Rate 91 H 94 H 89 Pulse Rate [Finger] Pulse Rate from SpO2 Sensor 89 96 H Pulse Rhythm [Finger] Pulse Strength [Finger] Respiratory Rate 20 16 22 Respiratory Effort / Characteristics Respiratory Depth Respiratory Pattern Blood Pressure 126/86 119/85 Blood Pressure [Left Arm] Blood Pressure [Right Arm] Blood Pressure Mean 99 96 Blood Pressure Mean [Left Arm] Blood Pressure Mean [Right Arm] Blood Pressure Position [Left Arm] Pulse Oximetry 97 97 90 Oxygen Delivery Method Room Air 11/12/18 12:40 11/12/18 12:50 11/12/18 13:00 Temperature Temperature Source Sepsis Recent Fever Within 48 Hours Sepsis New/Unexplained Change in Mental Status Sepsis Action Taken by Nursing Pulse Rate 94 H 102 H 93 H Pulse Rate [Finger] Pulse Rate from SpO2 Sensor 84 92 H 90 Pulse Rhythm [Finger] Pulse Strength [Finger] Respiratory Rate 20 17 16 Respiratory Effort / Characteristics Respiratory Depth Respiratory Pattern Blood Pressure Blood Pressure [Left Arm] Blood Pressure [Right Arm] Blood Pressure Mean Blood Pressure Mean [Left Arm] Blood Pressure Mean [Right Arm] Blood Pressure Position [Left Arm] Pulse Oximetry 94 95 90 Oxygen Delivery Method Room Air 11/12/18 13:01 11/12/18 13:10 11/12/18 13:20 Temperature Temperature Source Sepsis Recent Fever Within 48 Hours Sepsis New/Unexplained Change in Mental Status Sepsis Action Taken by Nursing Pulse Rate 86 88 88 Pulse Rate [Finger] Pulse Rate from SpO2 Sensor 87 80 83 Pulse Rhythm [Finger] Pulse Strength [Finger] Respiratory Rate 17 13 Respiratory Effort / Characteristics Respiratory Depth Respiratory Pattern Blood Pressure 122/83 Blood Pressure [Left Arm] Blood Pressure [Right Arm] Blood Pressure Mean 96 Blood Pressure Mean [Left Arm] Blood Pressure Mean [Right Arm] Blood Pressure Position [Left Arm] Pulse Oximetry 91 95 93 Oxygen Delivery Method 11/12/18 13:30 11/12/18 13:31 11/12/18 13:37 Temperature Temperature Source Sepsis Recent Fever Within 48 Hours Sepsis New/Unexplained Change in Mental Status Sepsis Action Taken by Nursing Pulse Rate 89 92 H Pulse Rate [Finger] 107 H Pulse Rate from SpO2 Sensor 86 89 Pulse Rhythm [Finger] Pulse Strength [Finger] Respiratory Rate 20 Respiratory Effort / Characteristics Respiratory Depth Respiratory Pattern Blood Pressure 131/85 Blood Pressure [Left Arm] Blood Pressure [Right Arm] 131/85 Blood Pressure Mean 100 Blood Pressure Mean [Left Arm] Blood Pressure Mean [Right Arm] 100 Blood Pressure Position [Left Arm] Pulse Oximetry 94 95 94 Oxygen Delivery Method Room Air 11/12/18 13:40 11/12/18 13:42 11/12/18 13:43 Temperature Temperature Source Sepsis Recent Fever Within 48 Hours Sepsis New/Unexplained Change in Mental Status Sepsis Action Taken by Nursing Pulse Rate 95 H 90 Pulse Rate [Finger] 100 H Pulse Rate from SpO2 Sensor 84 96 H Pulse Rhythm [Finger] Pulse Strength [Finger] Respiratory Rate 22 21 Respiratory Effort / Characteristics Respiratory Depth Respiratory Pattern Blood Pressure 120/91 Blood Pressure [Left Arm] Blood Pressure [Right Arm] 120/91 Blood Pressure Mean 100 Blood Pressure Mean [Left Arm] Blood Pressure Mean [Right Arm] 100 Blood Pressure Position [Left Arm] Pulse Oximetry 75 L 92 98 Oxygen Delivery Method Room Air Room Air 11/12/18 13:50 11/12/18 14:00 11/12/18 14:01 Temperature Temperature Source Sepsis Recent Fever Within 48 Hours Sepsis New/Unexplained Change in Mental Status Sepsis Action Taken by Nursing Pulse Rate 81 85 85 Pulse Rate [Finger] Pulse Rate from SpO2 Sensor 89 88 81 Pulse Rhythm [Finger] Pulse Strength [Finger] Respiratory Rate 19 19 15 Respiratory Effort / Characteristics Respiratory Depth Respiratory Pattern Blood Pressure 123/88 Blood Pressure [Left Arm] Blood Pressure [Right Arm] Blood Pressure Mean 99 Blood Pressure Mean [Left Arm] Blood Pressure Mean [Right Arm] Blood Pressure Position [Left Arm] Pulse Oximetry 95 93 94 Oxygen Delivery Method 11/12/18 14:10 11/12/18 14:20 11/12/18 14:30 Temperature Temperature Source Sepsis Recent Fever Within 48 Hours Sepsis New/Unexplained Change in Mental Status Sepsis Action Taken by Nursing Pulse Rate 90 90 72 Pulse Rate [Finger] Pulse Rate from SpO2 Sensor 91 H 93 H 75 Pulse Rhythm [Finger] Pulse Strength [Finger] Respiratory Rate 13 19 19 Respiratory Effort / Characteristics Respiratory Depth Respiratory Pattern Blood Pressure Blood Pressure [Left Arm] Blood Pressure [Right Arm] Blood Pressure Mean Blood Pressure Mean [Left Arm] Blood Pressure Mean [Right Arm] Blood Pressure Position [Left Arm] Pulse Oximetry 96 96 95 Oxygen Delivery Method 11/12/18 14:31 11/12/18 14:34 11/12/18 14:40 Temperature Temperature Source Sepsis Recent Fever Within 48 Hours Sepsis New/Unexplained Change in Mental Status Sepsis Action Taken by Nursing Pulse Rate 95 H 71 Pulse Rate [Finger] 97 H Pulse Rate from SpO2 Sensor 95 H 79 Pulse Rhythm [Finger] Pulse Strength [Finger] Respiratory Rate 18 16 20 Respiratory Effort / Characteristics Respiratory Depth Respiratory Pattern Blood Pressure 112/89 Blood Pressure [Left Arm] Blood Pressure [Right Arm] 112/89 Blood Pressure Mean 96 Blood Pressure Mean [Left Arm] Blood Pressure Mean [Right Arm] 96 Blood Pressure Position [Left Arm] Pulse Oximetry 97 97 94 Oxygen Delivery Method Room Air 11/12/18 14:50 11/12/18 15:00 11/12/18 15:01 Temperature Temperature Source Sepsis Recent Fever Within 48 Hours Sepsis New/Unexplained Change in Mental Status Sepsis Action Taken by Nursing Pulse Rate 81 75 70 Pulse Rate [Finger] Pulse Rate from SpO2 Sensor 87 87 77 Pulse Rhythm [Finger] Pulse Strength [Finger] Respiratory Rate 18 20 19 Respiratory Effort / Characteristics Respiratory Depth Respiratory Pattern Blood Pressure 109/85 Blood Pressure [Left Arm] Blood Pressure [Right Arm] Blood Pressure Mean 93 Blood Pressure Mean [Left Arm] Blood Pressure Mean [Right Arm] Blood Pressure Position [Left Arm] Pulse Oximetry 92 96 95 Oxygen Delivery Method 11/12/18 15:10 11/12/18 15:14 11/12/18 15:43 Temperature 36.5 C Temperature Source Oral Sepsis Recent Fever Within 48 Hours Sepsis New/Unexplained Change in Mental Status Sepsis Action Taken by Nursing Pulse Rate 77 77 Pulse Rate [Finger] 78 Pulse Rate from SpO2 Sensor 77 Pulse Rhythm [Finger] Pulse Strength [Finger] Respiratory Rate 18 18 20 Respiratory Effort / Characteristics Non-Labored Spontaneous SOB on Exertion Respiratory Depth Normal Respiratory Pattern Regular Blood Pressure Blood Pressure [Left Arm] 119/71 Blood Pressure [Right Arm] Blood Pressure Mean Blood Pressure Mean [Left Arm] 87 Blood Pressure Mean [Right Arm] Blood Pressure Position [Left Arm] Lying Pulse Oximetry 96 96 93 Oxygen Delivery Method Room Air Room Air 11/12/18 17:38 11/12/18 19:45 11/12/18 23:51 Temperature 36.7 C 36.5 C Temperature Source Oral Oral Sepsis Recent Fever Within 48 Hours Sepsis New/Unexplained Change in Mental Status Sepsis Action Taken by Nursing Pulse Rate Pulse Rate [Finger] 103 H 83 Pulse Rate from SpO2 Sensor Pulse Rhythm [Finger] Regular Pulse Strength [Finger] Normal Respiratory Rate 18 20 Respiratory Effort / Characteristics SOB on Exertion Non-Labored Non-Labored Spontaneous Respiratory Depth Normal Normal Respiratory Pattern Regular Blood Pressure Blood Pressure [Left Arm] 98/67 L 105/77 Blood Pressure [Right Arm] Blood Pressure Mean Blood Pressure Mean [Left Arm] 77 86 Blood Pressure Mean [Right Arm] Blood Pressure Position [Left Arm] Sitting Lying Pulse Oximetry 92 94 Oxygen Delivery Method Room Air Room Air Room Air 11/12/18 23:54 11/13/18 03:40 11/13/18 07:11 Temperature 36.8 C 37.1 C Temperature Source Oral Oral Sepsis Recent Fever Within 48 Hours Sepsis New/Unexplained Change in Mental Status Sepsis Action Taken by Nursing Pulse Rate 83 Pulse Rate [Finger] 94 H 79 Pulse Rate from SpO2 Sensor Pulse Rhythm [Finger] Pulse Strength [Finger] Respiratory Rate 18 18 Respiratory Effort / Characteristics Respiratory Depth Respiratory Pattern Blood Pressure Blood Pressure [Left Arm] Blood Pressure [Right Arm] 98/73 L 91/60 L Blood Pressure Mean Blood Pressure Mean [Left Arm] Blood Pressure Mean [Right Arm] 81 70 Blood Pressure Position [Left Arm] Pulse Oximetry 97 94 Oxygen Delivery Method Room Air Room Air GENERAL: Well appearing, well nourished, NAD, non-toxic. Wearing glasses. EYE EXAM: Normal conjunctiva. PERRL, no anisocoria and EOM's grossly intact w/o pain. OROPHARYNX: Moist MM. NECK: Supple, no nuchal rigidity, no adenopathy, non-tender. No signs of meningismus. LUNGS: Clear to auscultation. Normal chest wall mechanics. HEART: irregularly irregular. no MRG. ABDOMEN: Abdomen soft, non-tender, normo-active bowel sounds, no masses, no rebound or guarding. BACK: No CVA TTP. SKIN: No rashes and no bruising. UPPER EXTREMITIES: Upper extremities are grossly normal. LOWER EXTREMITIES: No calf pain. 1+ bilateral lower extremity edema, symmetric. NEURO EXAM: A and O x3. GCS 15. Moves all 4 extremities on command w/o issue. Course 1238: Past medical records reviewed. The patient was evaluated in room C6, and a complete history and physical examination were performed. 1335: Upon reevaluation, the patient is still feeling short of breath. I discussed test results. They verbalized agreement with the treatment plan. 1359: I reviewed the patient's case with Dr. Michele, [facility] hospitalist. He will evaluate the patient for further management. Consultations Consultation #1: Dr. Michele, [facility] hospitalist. Time: 13:59 Administered Medications Atorvastatin Calcium (Lipitor) 40 mg PO HS PHILIP Stop: 12/12/18 20:59 Last Admin: 11/12/18 20:49 Dose: 40 mg Documented by: [id number] Metoprolol Tartrate (Lopressor) 12.5 mg PO BID PHILIP Stop: 12/12/18 20:59 Last Admin: 11/12/18 20:49 Dose: 12.5 mg Documented by: [id number] Discontinued Medications Apixaban (Eliquis) 5 mg PO NOW STA Stop: 11/12/18 14:01 Last Admin: 11/12/18 14:31 Dose: 5 mg Documented by: [id number] Furosemide (Lasix) 40 mg PO NOW ONE Stop: 11/12/18 15:43 Last Admin: 11/12/18 17:04 Dose: 40 mg Documented by: [id number] Heparin Sodium/Dextrose () 1 ea IV ONE ONE; Protocol Stop: 11/12/18 13:51 Last Admin: 11/12/18 18:06 Dose: Not Given Documented by: [id number] Metoprolol Tartrate (Lopressor) 5 mg IV NOW STA Stop: 11/12/18 13:56 Last Admin: 11/12/18 14:31 Dose: 5 mg Documented by: [id number] Tamsulosin HCl (Flomax) 0.4 mg PO QAM PHILIP Stop: 12/13/18 08:59 Last Admin: 11/12/18 21:07 Dose: 0.4 mg Documented by: [id number] Medical Decision Making Medical Records Attestation: I reviewed the patient's medical records. Home Medications Current Medication List: was personally reviewed by me Laboratory Data Attestation: I reviewed the patient's lab results. Result diagrams: 11/13/18 06:15 11/13/18 06:15 Lab Results 11/12/18 11/12/18 11/12/18 Range/Units 12:35 12:35 12:35 WBC 7.12 (4.8-10.8) K/uL RBC 4.11 L (4.7-6.1) M/uL Hgb 12.5 L (14.0-18.0) g/dL Hct 38.2 L (42-52) % MCV 92.9 (80-100) fL MCH 30.4 (25-34) pg MCHC 32.7 (32-36) g/dL RDW Std Deviation 51.2 H (36.4-46.3) fL RDW Coeff of Adrienne 15.0 H (11.5-14.5) % Plt Count 176 (130-400) K/uL MPV 9.3 (7.4-10.4) fL Immature Gran % (Auto) 0.3 % Neut % (Auto) 61.1 % Lymph % (Auto) 25.8 % [place] % (Auto) 7.0 % Eos % (Auto) 5.5 % Baso % (Auto) 0.3 % Immature Gran # (Auto) 0.02 (0.00-0.02) K/uL Neut # (Auto) 4.35 (1.4-6.5) K/uL Lymph # (Auto) 1.84 (1.2-3.4) K/uL [place] # (Auto) 0.50 (0.11-0.59) K/uL Eos # (Auto) 0.39 (0-0.5) K/uL Baso # (Auto) 0.02 (0-0.2) K/uL PT 10.9 (9.0-12.0) Seconds INR 1.1 (0.9-1.1) APTT 23.6 (21.0-31.0) Seconds PTT Ratio 0.9 Sodium 140 (136-145) mmol/L Potassium 3.8 (3.5-5.1) mmol/L Chloride 106 (98-107) mmol/L Carbon Dioxide 28 (21-32) mmol/L Anion Gap 6.0 (3-11) BUN 21 H (7-18) mg/dl Creatinine 1.04 (0.6-1.4) mg/dl Est Cr Clr Drug Dosing 56.2 ml/min Est GFR ( Amer) 75.0 Est GFR (Non-Af Amer) 64.7 BUN/Creatinine Ratio 19.9 (10-20) Glucose 94 (70-99) mg/dl Calcium 9.5 (8.5-10.1) mg/dl Magnesium 2.2 (1.8-2.4) mg/dl Total Bilirubin 0.7 (0.2-1) mg/dl AST 18 (15-37) U/L ALT 23 (12-78) U/L Alkaline Phosphatase 113 (45-117) U/L Troponin I < 0.015 (0-0.045) ng/ml Total Protein 7.8 (6.4-8.2) gm/dl Albumin 3.4 (3.4-5.0) gm/dl Globulin 4.4 H (2.5-4.0) gm/dl Albumin/Globulin Ratio 0.8 L (0.9-2) TSH (0.300-4.500) uIu/ml Urine Color Urine Appearance (Clear) Urine pH (4.5-7.5) Ur Specific [place] (1.000-1.030) Urine Protein (Negative) Urine Glucose (UA) (Negative) Urine Ketones (Negative) Urine Blood (Negative) Urine Nitrite (Negative) Urine Bilirubin (Negative) Urine Urobilinogen (Negative) Ur Leukocyte Esterase (Negative) 11/12/18 11/13/18 11/13/18 Range/Units 21:20 06:15 06:15 WBC 5.93 (4.8-10.8) K/uL RBC 3.86 L (4.7-6.1) M/uL Hgb 11.5 L (14.0-18.0) g/dL Hct 35.1 L (42-52) % MCV 90.9 (80-100) fL MCH 29.8 (25-34) pg MCHC 32.8 (32-36) g/dL RDW Std Deviation 49.2 H (36.4-46.3) fL RDW Coeff of Adrienne 14.8 H (11.5-14.5) % Plt Count 147 (130-400) K/uL MPV 9.3 (7.4-10.4) fL Immature Gran % (Auto) % Neut % (Auto) % Lymph % (Auto) % [place] % (Auto) % Eos % (Auto) % Baso % (Auto) % Immature Gran # (Auto) (0.00-0.02) K/uL Neut # (Auto) (1.4-6.5) K/uL Lymph # (Auto) (1.2-3.4) K/uL [place] # (Auto) (0.11-0.59) K/uL Eos # (Auto) (0-0.5) K/uL Baso # (Auto) (0-0.2) K/uL PT (9.0-12.0) Seconds INR (0.9-1.1) APTT (21.0-31.0) Seconds PTT Ratio Sodium 138 (136-145) mmol/L Potassium 3.7 (3.5-5.1) mmol/L Chloride 104 (98-107) mmol/L Carbon Dioxide 30 (21-32) mmol/L Anion Gap 4.0 (3-11) BUN 23 H (7-18) mg/dl Creatinine 1.16 (0.6-1.4) mg/dl Est Cr Clr Drug Dosing 49.1 ml/min Est GFR ( Amer) 65.7 Est GFR (Non-Af Amer) 56.7 BUN/Creatinine Ratio 19.6 (10-20) Glucose 115 H (70-99) mg/dl Calcium 8.8 (8.5-10.1) mg/dl Magnesium (1.8-2.4) mg/dl Total Bilirubin (0.2-1) mg/dl AST (15-37) U/L ALT (12-78) U/L Alkaline Phosphatase (45-117) U/L Troponin I (0-0.045) ng/ml Total Protein (6.4-8.2) gm/dl Albumin (3.4-5.0) gm/dl Globulin (2.5-4.0) gm/dl Albumin/Globulin Ratio (0.9-2) TSH 1.670 (0.300-4.500) uIu/ml Urine Color Yellow Urine Appearance Clear (Clear) Urine pH 5.0 (4.5-7.5) Ur Specific [place] 1.016 (1.000-1.030) Urine Protein Negative (Negative) Urine Glucose (UA) Negative (Negative) Urine Ketones Negative (Negative) Urine Blood Negative (Negative) Urine Nitrite Negative (Negative) Urine Bilirubin Negative (Negative) Urine Urobilinogen Negative (Negative) Ur Leukocyte Esterase Negative (Negative) Imaging Data Radiologist's Impression: Radiology results as stated below per my review and the radiologist's interpretation: XR chest 1V portable CLINICAL HISTORY: Dyspnea dyspnea COMPARISON STUDY: 05/28/2018 FINDINGS: Mild increase in cardiac size. Increased prominence of pulmonary vasculature. Diaphragms are smooth. IMPRESSION: Developing congestive heart failure The above report was generated using voice recognition software. It may contain grammatical, syntax or spelling errors. Electronically signed by: Froy Laws M.D. 11/12/2018 12:46 PM ECG Data Attestation: I personally reviewed and interpreted this ECG as follows: Indication: SOB/dyspnea Rate (beats per minute): 92 Rhythm: atrial fibrillation Findings: + other (normal QRS duration. normal axis.); no ST depression and no ST elevation Blood Pressure Blood Pressure Findings: Normal blood pressure Blood Pressure Disposition: did not require urgent referral MDM Narrative The patient is a an 88 year old white male w/ PMHx of HLD, subdural hematoma, EGD, appendectomy, on ASA, who presents to the ED w/ CC of persistent shortness of breath beginning 4 months ago. Etiologies such as infections, reactive airway disease, COPD, pneumonia, pleural effusion, pulmonary edema, ARDS, pneumothorax, CHF, cardiac ischemia, cardiac tamponade, dysrhythmia, anemia, pulmonary embolism, musculoskeletal, gastrointestinal process, as well as others were entertained. Patient was seen and evaluated the bedside. The patient was complaining some shortness of breath and was noted to have been regular heart rhythm in outpatient clinic. The patient does appear to have a A. fib. No prior history. The patient does have a [id number] Score 5. Patient was ambulated in desatted to 75% on room air. I believe the patient may have a bit of diastolic dysfu nction so he was ordered some Lopressor and I did speak the on-call hospitalist to discuss anticoagulant medication recommended Eliquis at this time. Patient was subsequently admitted to the medicine service. Impression & Plan New onset a-fib, Diastolic heart failure, SOB (shortness of breath) Critical Care Time I have personally spent greater than 45 minutes of critical care time in the direct management of this patient. This includes bedside care, interpretation of diagnostic studies, and testing, discussion with consultants, patient, and family members, and other required patient management activities. This 45 minutes is in excess of all separately billable procedures. Critical Care Time: Yes Total Critical Care Time: 45 Discharge Plan Visit Data *Final* Discharge Date/Time: 11/12/18 15:14 Chief Complaint: Abnormal Labs/Diagnostic Testing Stated Complaint: IRREGULAR EKG ED Provider: Blas Powers Discharge Problem: New onset a-fib, Diastolic heart failure, SOB (shortness of breath) Patient Disposition: Admitted As Inpatient Discharge Instructions Interventions: ED Discharge Assessment Last Done: 11/12/18 15:14 Discharge Problem: Diastolic heart failure Qualifiers: Heart failure chronicity: acute Qualified Code(s): I50.31 - Acute diastolic (congestive) heart failure The scribe's documentation has been prepared under my direction and personally reviewed by me in its entirety. I confirm that the note above accurately reflects all work, treatment, procedures, and medical decision making performed by me.
[2018-11-12] MEDS ORDERED: POLYETHYLENE (MIRALAX) 17 GM PACK PO PRN (15:42)
[2018-11-12] MEDS ORDERED: ONDANSETRON INJ 2 MG/ML 2 ML VIAL IV PRN (15:42)
[2018-11-12] MEDS ORDERED: ACETAMINOPHEN 325 MG TAB PO PRN (15:42)
[2018-11-12] MEDS ORDERED: FUROSEMIDE 40 MG TAB PO ONE (15:42)
--- NOTE | 2018-11-12 16:56 | Cardiology Consultation ---
Date of Consultation November 12, 2018 Assessment & Plan (1) New onset a-fib: He has recently diagnosed atrial fibrillation, it may be of relatively recent onset although that is not clear. He was in the emergency room in April 2018 and his heart rate was in the low 50s (I do not see an elect rocardiogram) so I suspect he was not in atrial fibrillation then but I cannot be sure when it started subsequently. Review of our office records show that on September 26, 2018 his heart rate was 60, again unlikely he was in atrial fibrillation then. I suspect therefore that it started sometime since then but I cannot be sure when. His heart rate was a little bit fast here on telemetry although not excessively so without AV alfreda blocking medications. 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 That may make it difficult to get proper rate control and still not have been bradycardic but I agree with low-dose beta blockade. He does need anticoagulation, he is already on aspirin and Plavix but I agree with starting Eliquis. More on this below. (2) SOB (shortness of breath): His shortness of breath is probably at least in part due to congestive heart failure. His congestive heart failure is relatively mild and is probably due to the atrial fibrillation although we need to exclude an element of left ventricular dysfunction, an echo is ordered. Shortness of breath could also be due to abnormalities in heart rate. His shortness of breath is relatively recent and may indicate when he went into atrial fibrillation, but it could have started before that and may have taken some time frame developed congestive heart failure which ultimately may have caused the shortness of breath. In any case we should diurese him, keep him on his current rate control medications and may be a walk him around the hospital tomorrow and see if the shortness of breath is improved and see what his heart rate does with activity. This is assuming he does not have significant left ventricular dysfunction. (3) History of stroke: He had a stroke 2 years ago, that was well defined in the left hemisphere based on symptoms and brain imaging. 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 He is on aspirin and Plavix, now we need to add Eliquis. If we assume his stroke was from his carotid may be needs to be on triple anticoagulant therapy but that is a significant risk given that he has had a fall with a CHIEF OF STAFF bleed and nosebleed requiring emergency treatment recently. If we are not convinced that his prior stroke was from his carotid disease it may be safer to use Eliquis alone and discontinue the platelet inhibitors, or at least 1 of them. (4) CHF (congestive heart failure): He appears to have some degree of congestive heart failure this admission. This could be diastolic heart failure from the increased rate during atrial fibrillation, it could also be due to fluid retention due to longer standing atrial fibrillation leading to congestive heart failure. I agree with an echo and if his left ventricular function is good I would diuresis and see whether that helps his symptoms. In that case we may never whether it was rate during atrial fibrillation or the atrial fibrillation itself which led to the heart failure. History of Present Illness Reason for Consultation: Newly diagnosed AF Attending Physician: Ethan Michele, DO History of Present Illness This is a very pleasant 88-year-old gentleman with a history of hyperlipidemia and a history of left hemispheric stroke 2 years ago. He did have 40-50% carotid disease identified on the left side, and he was subsequently treated with aspirin and Plavix. He has had no further CHIEF OF STAFF events based on symptoms. He had no prior known history of atrial fibrillation. His current admission is due to about 1 month of dyspnea on exertion, he went to his primary care physician's office today and was noted to be in atrial fibrillation. He was therefore sent into the emergency room. His heart rate was somewhat fast but not excessive, he seems unaware of the arrhythmia. He does notice that his legs are somewhat puffy recently as well and he has been having a poor appetite. 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 Of note he was seen in the emergency room on May 11, 2018 with a 3-day nosebleed. The area was cauterized in the emergency room. I believe he also has a history of a head injury bleed sometime ago. Allergies Allergy/AdvReac Type Severity Reaction Status Date / Time No Known Allergies Allergy Verified 11/12/18 13:46 Home Medications Home Medications Medication Instructions Recorded Confirmed Type I-Caps 1 tab PO QAM 05/01/18 11/12/18 History ascorbic acid (vitamin C) [Vitamin 500 mg PO QAM 05/01/18 11/12/18 History C] aspirin [Aspir-81] 81 mg PO QAM 05/01/18 11/12/18 History atorvastatin [Lipitor] 40 mg PO HS 05/01/18 11/12/18 History cholecalciferol (vitamin D3) 2,000 unit PO QAM 05/01/18 11/12/18 History [Vitamin D3] clopidogrel [Plavix] 75 mg PO QAM 05/01/18 11/12/18 History ferrous sulfate [iron] 325 mg PO QAM 05/01/18 11/12/18 History hydrochlorothiazide 25 mg PO QAM 05/01/18 11/12/18 History omega 9-awd-aid-fish oil [Fish Oil] 1,000 mg PO QAM 05/01/18 11/12/18 History omeprazole 20 mg PO QAM 05/01/18 11/12/18 History vitamin E 400 unit PO QAM 05/01/18 11/12/18 History acetaminophen [Tylenol] 650 mg PO QAM 11/12/18 11/12/18 History tamsulosin 0.4 mg PO QAM 11/12/18 11/12/18 History testosterone enanthate 1 ml IM Q14D 11/12/18 11/12/18 History Patient History Medical History Encounter for pre-operative examination Confusion and disorientation Cystitis (Acute) Head injury (Acute) MGUS (monoclonal gammopathy of unknown significance) (Chronic) Scalp laceration (Acute) Subdural hematoma (Acute) Tooth avulsion (Acute) Urinary tract infection (Acute) Chronic back pain LUMBAR GERD (gastroesophageal reflux disease) Hiatal hernia Hx of gastric ulcer Hyperlipidemia SOB (shortness of breath) on exertion 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 TAKEN TO [facility]-R SIDED NUMBNESS/WEAKNESS-RESIDUAL EFFECT IMPAIRED MEMORY-WALKS WITH A SLIGHT LIMP-ON THINNER-F/U PCP Surgical History History of appendectomy History of colonoscopy History of esophagogastroduodenoscopy (EGD) Social History Smoking Status: Never smoker second hand exposure: No substance use type: does not use Physical Exam Vital Signs (Past 24 Hours): Last Vital Signs Temp 36.5 C 11/12/18 15:43 Pulse 78 11/12/18 15:43 Resp 20 11/12/18 15:43 BP 119/71 11/12/18 15:43 Pulse Ox 93 11/12/18 15:43 Physical Exam: Constitutional: Alert, cooperative and in no distress. HEENT: Unremarkable Neck: No jugular venous distention, carotid pulses are irregular but otherwise normal and equal bilaterally without bruits. Pulmonary: Clear to auscultation bilaterally. Cardiac: Irregular rhythm with a grade 2/6 holosystolic murmur at the apex, no gallop or rub. Abdomen: Soft, nontender with normal bowel sounds. Extremities: No edema. Distal pulses intact. Neurologic: No focal findings. Gait is steady. Skin: No rash, ecchymoses or petechiae. Results & Data Diagnostic Findings His presenting electrocardiogram shows atrial fibrillation with a heart rate of 92 bpm. No acute changes, this atrial fibrillation is new since October 07, 2016. Telemetry: Atrial fibrillation, initially somewhat rapid heart rate but subsequently good heart rate control.
--- NOTE | 2018-11-12 17:26 | History & Physical Report ---
Date of Service November 12, 2018 Assessment & Plan (1) New onset a-fib: rates are controlled unsure how long he has been in afib, says he has been SOB on exertion for 4 weeks no palpitations will start low dose Metoprolol 12.5mg BID since HR in in the 90's at rest high risk for stroke given prior stroke will start on Eliquis 5mg BID since renal function is intact echocardiogram tomorrow, check TSH level consult cardiology (2) CHF (congestive heart failure): new onset, could be from atrial fibrillation, may have intermittent RVR will give a single dose of Lasix and watch for response (3) SOB (shortness of breath): due to mild CHF see how he responds to Lasix (4) History of stroke: on aspirin and Plavix will stop the aspirin since we will be starting Eliquis (5) Early satiety: ongoing issue has appt with Dr. Wong as outpatient (6) Abdominal distension: will check abdominal US for ascites no history of heavy drinking History of Present Illness Chief Complaint: I feel short of breath Primary Care Provider: Jai Garcia MD 88 yo male with history of ischemic stroke, hyperlipidemia, GERD and BPH p resents to the ED due to irregular heart rate that was discovered in the PCP office. He says he went to his PCP office today due to 4 weeks of worsening shortness of breath. He said that the dyspnea was subtle at first, experienced with increased activity. He has noticed that he tends to get more short of breath now with even less activity. He denies dyspnea at rest or dyspnea laying down. He has not experienced any chest pain or palpitations. He says he has never had symptoms like this before. He was found to be in atrial fibrillation but his HR was controlled. He has no history of afib to his knowledge. He says he had an ischemic stroke two years ago. He still has mild symptoms of sensory loss on his left side, specifically his left hand, abdomen and leg. No motor weakness. He takes aspirin and Plavix and statin for this. He says that he has experienced a change in appetite the past few weeks as well. He has early satiety and just lack of appetite. Will eat a small breakfast, force down some lunch, usually not hungry at all for dinner. No abdominal pain, no vomiting, no constipation. He feels like his abdomen is more distended, that it is filled with fluid. He has not experienced any weight loss with this decrease in intake. He is scheduled to see Dr. Wong as outpatient. 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 He has no h istory of heavy alcohol use or tobacco use. Allergies Allergy/AdvReac Type Severity Reaction Status Date / Time No Known Allergies Allergy Verified 11/12/18 13:46 Home Medications Home Medications Medication Instructions Recorded Confirmed Type I-Caps 1 tab PO QAM 05/01/18 11/12/18 History ascorbic acid (vitamin C) [Vitamin 500 mg PO QAM 05/01/18 11/12/18 History C] aspirin [Aspir-81] 81 mg PO QAM 05/01/18 11/12/18 History atorvastatin [Lipitor] 40 mg PO HS 05/01/18 11/12/18 History cholecalciferol (vitamin D3) 2,000 unit PO QAM 05/01/18 11/12/18 History [Vitamin D3] clopidogrel [Plavix] 75 mg PO QAM 05/01/18 11/12/18 History ferrous sulfate [iron] 325 mg PO QAM 05/01/18 11/12/18 History hydrochlorothiazide 25 mg PO QAM 05/01/18 11/12/18 History omega 7-nwa-jhs-fish oil [Fish Oil] 1,000 mg PO QAM 05/01/18 11/12/18 History omeprazole 20 mg PO QAM 05/01/18 11/12/18 History vitamin E 400 unit PO QAM 05/01/18 11/12/18 History acetaminophen [Tylenol] 650 mg PO QAM 11/12/18 11/12/18 History tamsulosin 0.4 mg PO QAM 11/12/18 11/12/18 History testosterone enanthate 1 ml IM Q14D 11/12/18 11/12/18 History Past Med/Surg History Medical History Encounter for pre-operative examination Confusion and disorientation Cystitis (Acute) Head injury (Acute) MGUS (monoclonal gammopathy of unknown significance) (Chronic) Scalp laceration (Acute) Subdural hematoma (Acute) Tooth avulsion (Acute) Urinary tract infection (Acute) Chronic back pain LUMBAR GERD (gastroesophageal reflux disease) Hiatal hernia Hx of gastric ulcer Hyperlipidemia SOB (shortness of breath) on exertion 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 TAKEN TO [facility]-R SIDED NUMBNESS/WEAKNESS-RESIDUAL EFFECT IMPAIRED MEMORY-WALKS WITH A SLIGHT LIMP-ON THINNER-F/U PCP Surgical History History of appendectomy History of colonoscopy History of esophagogastroduodenoscopy (EGD) Family History Other Hypertension Social History Preferred Language: [employer] Required: No Beliefs That Will Affect Care: None Current Living Situation: Alone Other Information That Helps Us Care for You: No Feels Safe at Home: Yes Safety Concerns: Feels Safe At This Time Smoking Status: Never smoker Hx Alcohol Use: Yes Hx Substance Use: No Review of Systems All systems reviewed & are unremarkable except as noted in HPI & below Physical Exam Vital Signs (Past 24 Hours): Last Vital Signs Temp 36.5 C 11/12/18 15:43 Pulse 78 11/12/18 15:43 Resp 20 11/12/18 15:43 BP 119/71 11/12/18 15:43 Pulse Ox 93 11/12/18 15:43 Constitutional: WD/WN, vitals as above Eyes: PERRL, conjunctivae normal, anicteric sclerae ENMT: external ear and nose normal, oropharynx normal Neck: trachea midline, no thyromegaly Respiratory: normal respiratory effort and normal percussion; no respiratory distress and no cough Auscultation: + rales (bases); no wheezes Cardiovascular: Rate/Rhythm: regular rate; + abnormal rhythm (irregular irre gular) Heart Sounds: normal S1 and normal S2 Vessels: normal peripheral pulses; no JVD Extremities: normal capillary refill and + pedal edema (mild in ankles) Gastrointestinal (Abdomen): normal bowel sounds, soft, nontender, no hepatosplenomegaly Inspection/Auscultation: + abdomen distended (slightly distended) Musculoskeletal: no cyanosis or clubbing, extremities motor strength 5/5 Skin: no rashes, warm and dry Neurologic: patellar DTR's 2+ bilat, sensation intact and PERRL, EOMI, accommodation nl, no face palsy, no dysarthria Psychiatric: A+Ox3, euthymic affect Lymphatic: no cervical or axillary lymphadenopathy Results & Data Laboratory Results Laboratory Results - last 24 hr 11/12/18 11/12/18 11/12/18 12:35 12:35 12:35 WBC 7.12 RBC 4.11 L Hgb 12.5 L Hct 38.2 L MCV 92.9 MCH 30.4 MCHC 32.7 RDW Std Deviation 51.2 H RDW Coeff of Adrienne 15.0 H Plt Count 176 MPV 9.3 Immature Gran % (Auto) 0.3 Neut % (Auto) 61.1 Lymph % (Auto) 25.8 [place] % (Auto) 7.0 Eos % (Auto) 5.5 Baso % (Auto) 0.3 Immature Gran # (Auto) 0.02 Neut # (Auto) 4.35 Lymph # (Auto) 1.84 [place] # (Auto) 0.50 Eos # (Auto) 0.39 Baso # (Auto) 0.02 PT 10.9 INR 1.1 APTT 23.6 PTT Ratio 0.9 Sodium 140 Potassium 3.8 Chloride 106 Carbon Dioxide 28 Anion Gap 6.0 BUN 21 H Creatinine 1.04 Est Cr Clr Drug Dosing 56.2 Est GFR ( Amer) 75.0 Est GFR (Non-Af Amer) 64.7 BUN/Creatinine Ratio 19.9 Glucose 94 Calcium 9.5 Magnesium 2.2 Total Bilirubin 0.7 AST 18 ALT 23 Alkaline Phosphatase 113 Troponin I < 0.015 Total Protein 7.8 Albumin 3.4 Globulin 4.4 H Albumin/Globulin Ratio 0.8 L Diagnostic Findings XR chest 1V portable CLINICAL HISTORY: Dyspnea dyspnea COMPARISON STUDY: 05/28/2018 FINDINGS: Mild increase in cardiac size. Increased prominence of pulmonary vasculature. Diaphragms are smooth. IMPRESSION: Developing congestive heart failure ECG Indication: SOB/dyspnea Rhythm: atrial fibrillation Code Status & VTE Plan Code Status full code VTE Prophylaxis Plan VTE Prophylaxis will be ordered: Yes
--- NOTE | 2018-11-12 20:46 | Ultrasound Report ---
ULTRASOUND ASCITES CHECK CLINICAL HISTORY: Early satiety. Clinical concern for abdominal ascites. COMPARISON STUDY: Abdominal CT dated 12/11/2014. FINDINGS: Real-time grayscale sonography of all 4 quadrants of the abdomen is performed to assess for abdominal ascites. No abdominal ascites is identified. Nodularity of the hepatic surface contour sug gests changes of cirrhosis. The bladder wall appears thickened and trabeculated indicating chronic ou tlet obstruction. IMPRESSION: There is no sonographic evidence of abdominal ascites as clinically queried. Electronically signed by: Tomi Roberts M.D. 11/12/2018 8:44 PM
[2018-11-12] MEDS: METOPROLOL TARTRATE 25 MG TAB PO SCH (20:49)
[2018-11-12] MEDS ORDERED: ATORVASTATIN 40 MG TAB PO SCH (21:00)
[2018-11-12 21:41] LABS: Appearance Urine Clear (Clear); Bilirubin Urine Negative (Negative); Blood Urine Negative (Negative); Color Urine Yellow; Glucose Urine UA Negative (Negative); Ketones Urine Negative (Negative); Leukocyte Esterase Urine Negative (Negative); Nitrite Urine Negative (Negative); Protein Urine Negative (Negative); Specific Gravity Urine 1.016 (1.000-1.030); Urobilinogen Urine Negative (Negative)
[2018-11-13 06:33] LABS: Hematocrit (blood only) 35.1 % (42-52); Hemoglobin 11.5 g/dL (14.0-18.0); Mean Corpuscular Hgb Conc 32.8 g/dL (32-36); Mean Corpuscular Volume 90.9 fL (80-100); Mean Platelet Volume 9.3 fL (7.4-10.4); Platelet Count 147 K/uL (130-400); RDW Coefficient of Variation 14.8 % (11.5-14.5); RDW Standard Deviation 49.2 fL (36.4-46.3); Red Blood Count 3.86 M/uL (4.7-6.1); White Blood Count 5.93 K/uL (4.8-10.8)
[2018-11-13 06:52] LABS: BUN Creatinine Ratio 19.6 (10-20); Calcium 8.8 mg/dl (8.5-10.1); Creatinine Clr Calc Pharmacy 49.1 ml/min; Est GFR (African American) 65.7; Est GFR (Non-African American) 56.7; Potassium 3.7 mmol/L (3.5-5.1)
[2018-11-13] MEDS ORDERED: APIXABAN 5 MG TABLET PO SCH (09:00)
[2018-11-13] MEDS ORDERED: ASCORBIC ACID 500 MG TAB PO SCH (09:00)
[2018-11-13] MEDS ORDERED: CLOPIDOGREL BISULFATE 75 MG TAB PO SCH (09:00)
[2018-11-13] MEDS ORDERED: CHOLECALCIFEROL 1,000 UNITS TAB PO SCH (09:00)
[2018-11-13] MEDS ORDERED: FERROUS SULFATE 325 MG TAB PO SCH (09:00)
[2018-11-13] MEDS ORDERED: PANTOprazole 40 MG TAB PO SCH (09:00)
[2018-11-13] MEDS ORDERED: TAMSULOSIN HCL 0.4 MG CAP PO SCH ×2 (09:00→21:00)
--- NOTE | 2018-11-13 09:42 | Cardiology Progress Note ---
Date of Service November 13, 2018 Assessment & Plan (1) New onset a-fib: He has recently diagnosed atrial fibrillation, it may be of relatively recent onset although that is not clear. He was in the emergency room in April 2018 and his heart rate was in the low 50s (I do not see an electroca rdiogram) so I suspect he was not in atrial fibrillation then but I cannot be sure when it started subsequently. Review of our office records show that on September 26, 2018 his heart rate was 60, again unlikely he was in atrial fibrillation then. I suspect therefore that it started sometime since then but I cannot be sure when. His heart rate was a little bit fast here on telemetry although not excessively so without AV alfreda blocking medications. 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 That may make it difficult to get proper rate control and still not have been bradycardic but I agree with low-dose beta blockade. His heart rate has been well controlled and I would not increase his beta blockade. If he remains in atrial fibrillation in the future we may want to consider cardioversion although since he appears asymptomatic that may not be necessary. He does need anticoagulation, he is already on aspirin and Plavix but I agree with starting Eliquis. More on this below. (2) SOB (shortness of breath): His shortness of breath is probably at least in part due to congestive heart failure. His congestive heart failure is relatively mild and is probably due to the atrial fibrillation since he does not have left ventricular dysfuncti on. Shortness of breath could also be due to abnormalities in heart rate. His shortness of breath is relatively recent and may indicate when he went into atrial fibrillation, but it may have taken some time to develop congestive heart failure which ultimately may have caused the shortness of breath. In any case we should diurese him (although I think he is close to euhydrated), keep him on his current rate control medications and maybe walk him around the halls today and see if the shortness of breath is improved and see what his heart rate does with activity. (3) History of stroke: He had a stroke 2 years ago, that was well defined in the left hemisphere based on symptoms and brain imaging. 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 He is on aspirin and Plavix, now we need to add Eliquis. 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 If we are not convinced that his prior stroke was from his carotid disease it may be safer to use Eliquis alone and discontinue the platelet inhibitors, or at least continue aspirin alone and discontinue Plavix. (4) CHF (congestive heart failure): He appears to have some degree of congestive heart failure this admission. This is likely to be diastolic heart failure from the increased rate during atrial fibrillation, it could also be due to fluid retention due to longer standing atrial fibrillation leading to congestive heart failure. I would diuresis and see whether that helps his symptoms. We may never know whether it was rate during atrial fibrillation or the atrial fibrillation itself which led to the heart failure. Subjective Today he feels well, he denies symptoms of palpitations or lightheadedness (despite his low blood pressure). He has not been very active so I cannot as sess dyspnea on exertion. Physical Exam Vital Signs (Past 24 Hours): Last Vital Signs Temp 37.1 C 11/13/18 07:11 Pulse 79 11/13/18 07:11 Resp 18 11/13/18 07:11 BP 91/60 L 11/13/18 07:11 Pulse Ox 94 11/13/18 07:11 Physical Exam: Constitutional: Alert, cooperative and in no distress. HEENT: Unremarkable Neck: No jugular venous distention, carotid pulses are irregular but otherwise normal and equal bilaterally without bruits. Pulmonary: Clear to auscultation bilaterally. Cardiac: Irregular rhythm with a grade 2/6 holosystolic murmur at the apex, no gallop or rub. Abdomen: Soft, nontender with normal bowel sounds. Extremities: At most trace bilateral edema. Distal pulses intact. Neurologic: No focal findings. Gait is steady. Skin: No rash, ecchymoses or petechiae. Results & Data Diagnostic Findings His echocardiogram shows normal left ventricular systolic function with mild left ventricular hypertrophy, mild left atrial dilatation and mild to moderate mitral regurgitation. An electrocardiogram today shows atrial fibrillation with a heart rate of 85 bpm. Telemetry: Atrial fibrillation, rate well controlled
[2018-11-13] MEDS: METOPROLOL TARTRATE 25 MG TAB PO SCH (09:55)
--- NOTE | 2018-11-13 15:49 | Discharge Summary ---
Date of Service November 13, 2018 Admission HPI Per Admitting Provider 88 yo male with history of ischemic stroke, hyperlipidemia, GERD and BPH presents to the ED due to irregular heart rate that was discovered in the PCP office. He says he went to his PCP office today due to 4 weeks of worsening shortness of breath. He said that the dyspnea was subtle at first, experienced with increased activity. He has noticed that he tends to get more short of breath now with even less activity. He denies dyspnea at rest or dyspnea laying down. He has not experienced any chest pain or palpitations. He says he has never had symptoms like this before. He was found to be in atrial fibrillation but his HR was controlled. He has no history of afib to his knowledge. He says he had an ischemic stroke two years ago. He still has mild symptoms of sensory loss on his left side, specifically his left hand, abdomen and leg. No motor weakness. He takes aspirin and Plavix and statin for this. He says that he has experienced a change in appetite the past few weeks as well. He has early satiety and just lack of appetite. Will eat a small breakfast, force down some lunch, usually not hungry at all for dinner. No abdominal pain, no vomiting, no constipation. He feels like his abdomen is more distended, that it is filled with fluid. He has not experienced any weight loss with this decrease in intake. He is scheduled to see Dr. Wong as outpatient. 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 He has no history of heavy alcohol use or tobacco use. Admission Exam Per Admitting Provider Constitutional: WD/WN, vitals as above Eyes: PERRL, conjunctivae normal, anicteric sclerae ENMT: external ear and nose normal, oropharynx normal Neck: trachea midline, no thyromegaly Respiratory: normal respiratory effort and normal percussion; no respiratory distress and no cough Auscultation: + rales (bases); no wheezes Cardiovascular: Rate/Rhythm: regular rate; + abnormal rhythm (irregular irregular) Heart Sounds: normal S1 and normal S2 Vessels: normal peripheral pulses; no JVD Extremities: normal capillary refill and + pedal edema (mild in ankles) Gastrointestinal (Abdomen): normal bowel sounds, soft, nontender, no hepatosplenomegaly Inspection/Auscultation: + abdomen distended (slightly distended) Musculoskeletal: no cyanosis or clubbing, extremities motor strength 5/5 Skin: no rashes, warm and dry Neurologic: patellar DTR's 2+ bilat, sensation intact and PERRL, EOMI, accommodation nl, no face palsy, no dysarthria Psychiatric: A+Ox3, euthymic affect Lymphatic: no cervical or axillary lymphadenopathy Principal Diagnosis New onset atrial fibrillation Discharge Exam Constitutional WD/WN, vitals as above Eyes PERRL, conjunctivae normal, anicteric sclerae ENMT external ear and nose normal, oropharynx normal Neck trachea midline, no thyromegaly Respiratory normal respiratory effort and normal percussion; no respiratory distress and no cough Auscultation: no wheezes Cardiovascular Rate/Rhythm: regular rate; + abnormal rhythm (irregular irregular) Heart Sounds: normal S1 and normal S2 Vessels: normal peripheral pulses; no JVD Extremities: normal capillary refill; no pedal edema Gastrointestinal (Abdomen) normal bowel sounds, soft, nontender, no hepatosplenomegaly Inspection/Auscultation: + abdomen distended (slightly distended) Musculoskeletal no cyanosis or clubbing, extremities motor strength 5/5 Skin no rashes, warm and dry Neurologic patellar DTR's 2+ bilat, sensation intact and PERRL, EOMI, accommodation nl, no face palsy, no dysarthria Psychiatric A+Ox3, euthymic affect Lymphatic no cervical or axillary lymphadenopathy Discharge Data Allergies Allergy/AdvReac Type Severity Reaction Status Date / Time No Known Allergies Allergy Verified 11/12/18 13:46 Consultations 11/12/18 13:57 ED Decision to Admit Stat 11/12/18 15:42 Consult Cardiology Routine Ordered Studies 11/12/18 15:42 abdomen limited Stat Hospital Course (1) New onset a-fib: rates are controlled unsure how long he has been in afib, says he has been SOB on exertion for 4 weeks no palpitations will start low dose Metoprolol 12.5mg BID since HR in in the 90's at rest high risk for stroke given prior stroke will start on Eliquis 5mg BID since renal function is intact TSH is 1.67 echo shows mitral regurgitation, LA and RA dilation, normal EF afib likely caused by the MR and atrial dilation rates well controlled with metoprolol 12.5mg BID, on exertion rates go up to 90- 100s continue on Eliquis 5mg BID, he accepts copay of $47 month will follow up with Dr. Barrow in 4 weeks, discuss cardioversion at that time (2) CHF (congestive heart failure): new onset, could be from atrial fibrillation, may have intermittent RVR good response to Lasix 40mg yesterday, edema resolved echo with mitral regurgitation, normal EF will d/c home on Lasix 20mg daily as well as Potassium chloride 20mEq daily will follow up with heart failure clinic next week CHF instructions provided and stressed importance of daily weights (3) SOB (shortness of breath): much improved after Lasix no dyspnea at rest, has minimal GARCIA expect the GARCIA to improve with daily Lasix and rate control with metoprolol (4) History of stroke: on aspirin and Plavix will stop the Plavix since we will be starting Eliquis continue statin (5) Early satiety: ongoing issue has appt with Dr. Wong as outpatient in November instructed patient to call Dr. Wong's office to discuss Eliquis and time frame to hold prior to EGD (6) Abdominal distension: no ascites on abdominal US long standing distention per patient's family Total Time Total Time Spent Total Time Spent (In Minutes): 40 minutes Total Time Includes: Examination of the Patient, Discharge Planning, Medication Reconciliation, Communication With Other Providers (Dr. Barrow, Irene GORE) and Other (discussion with family) Discharge Plan Discharge Items Patient Disposition: Home - Self-Care Reason For Visit: NEW ONSET OF AFIB, OXYDEN DESATURATION Discharge Diagnosis: Atrial fibrillation Mitral regurgitation Acute diastolic heart failure Condition: Good Discharge Goals: Improve disease control and Improve function Activity: Resume your previous activity Driving/Machine Use: No limitations Non-emergency contact: Primary Care Provider and Pattern Attendant Call non-emergency contact if: you have any medication questions, your symptoms worsen and you have a fever Follow-up/Referrals: Jai Garcia MD [Primary Care Provider] - 11/19/18 11:40 am (Please, follow up with Dr. Malik on SundayNovember 19 at 11:40 am. *If you need to change this appointment, call the office at [phone].) Diet: Heart Healthy Fluids: 2000ml (8 cups) Addtl Provider Instructions: Medications: - ELIQUIS: 5mg twice a day to help prevent stroke with atrial fibrillation - FUROSEMIDE: diuretic, take once a day in the morning, helps keep volume down - METOPROLOL: 12.5mg twice a day, next dose is this evening - POTASSIUM: 20mEq daily in the morning, this is to keep potassium normal with using Lasix - PLAVIX: this medication is now STOPPED since we are starting Eliquis - HYDROCHLOROTHIAZIDE: this medication is now STOPPED since we are starting Lasix Atrial fibrillation, new onset rates are controlled on metoprolol, will continue at home anticoagulated on Eliquis follow up with Dr. Barrow in several weeks for consideration of cardioversion in the future Acute heart failure, diastolic, moderate mitral regurgitation improved with Lasix will start on Lasix 20mg daily with daily potassium follow up with Dr Barrow, follow up with heart failure clinic see instructions below, important to weigh yourself daily Abdominal distension, decreased appetite normal abdominal US, no evidence of ascites (fluid in belly) recommend follow up with Dr. Wong as previously scheduled recommend contacting his office to make them aware that you are now on Eliquis as they would want to hold this prior to any scopes [phone] FOLLOW UP - heart failure clinic next week - Dr. Barrow in several weeks - Dr. Hernández next week Call 911 and go to the Emergency Room if: * You have tightness or pain in your chest that does not go away with rest or Nitroglycerin * You are very short of breath even with rest Call your doctor if any of the following symptoms or problems start or get worse: * Shortness of breath or difficulty breathing * Wake up at night short of breath * Chest pain * Cough * Swelling of your hands, fee, or legs * More fatigued or tired with your normal activity * Palpitations - sudden fast heart beats WEIGHT * Weigh yourself every morning after using the bathroom. * Use the same scale. * Wear the same amount of clothing. * Write your weight down on your chart. * Call your doctor if you gain more than 2-3 pounds in 1-2 days. MEDICATIONS * Use this discharge instruction sheet for instructions. * Take your medications at the time your doctor ordered. * Do not skip a dose of your medicines. * If you miss a dose of medicine, take as soon as possible, but DO NOT DOUBLE A DOSE. * Read your medicine information when you get home. * Know all of the side effects of your medicine. * Call your doctor's office if you have any side effects. * Be sure all of your doctors know what medicine and herbs you take (including cold, flu, and herbal medicine). * Pain Medicine: If you do not get relief from your pain, please call your doctor for help. Take the following with you to your follow-up doctor appointments: * Weight Chart * Medication List * List of questions Do not drink excessive alcohol, beer or wine. Prescriptions: New metoprolol tartrate 25 mg Tablet 12.5 mg PO BID 30 Days Qty: 30 RF: 3 Eliquis 5 mg Tablet 5 mg PO BID 30 Days Qty: 60 RF: 3 potassium chloride 20 mEq tablet extended release 20 meq PO DAILY Qty: 30 RF: 3 furosemide 20 mg tablet 20 mg PO DAILY Qty: 30 RF: 3 Continued atorvastatin [Lipitor] 40 mg Tablet 40 mg PO HS RF: 0 omeprazole 20 mg Capsule,Delayed Release(Dr/Ec) 20 mg PO QAM RF: 0 aspirin [Aspir-81] 81 mg Tablet,Delayed Release (Dr/Ec) 81 mg PO QAM RF: 0 ascorbic acid (vitamin C) [Vitamin C] 500 mg Tablet 500 mg PO QAM RF: 0 ferrous sulfate [iron] 325 mg (65 mg iron) Tablet 325 mg PO QAM RF: 0 vitamin E 400 unit Capsule 400 unit PO QAM RF: 0 cholecalciferol (vitamin D3) [Vitamin D3] 2,000 unit Capsule 2,000 unit PO QAM RF: 0 omega 3-xyg-eep-fish oil [Fish Oil] 1,000 mg (120 mg-180 mg) Capsule 1,000 mg PO QAM RF: 0 I-Caps 280-10-2 mg Capsule 1 tab PO QAM RF: 0 acetaminophen [Tylenol] 325 mg Tablet 650 mg PO QAM RF: 0 tamsulosin 0.4 mg capsule 0.4 mg PO QAM RF: 0 testosterone enanthate 200 mg/mL Oil 1 ml IM Q14D RF: 0 Discontinued clopidogrel [Plavix] 75 mg Tablet 75 mg PO QAM RF: 0 hydrochlorothiazide 25 mg Tablet 25 mg PO QAM RF: 0 Stand-Alone Forms: [facility] Discharge Orders: Discharge Order (Routine); Ordered 11/13/18 Ordered By: Ethan Michele Admission Data Admit Date/Time: 11/12/18 14:32 Attending Provider: Ethan Michele Admit Provider: Ethan Michele Primary Care Provider: Jai Garcia V. Other Providers: Ethan Michele ; Chris Alvarado Service: Telemetry Other Interventions: Discharge Summary Assessment (RN) Last Done: 11/13/18 13:57 Pending Studies at Discharge: No DC Date/Time DO NOT enter until pt leaves facility: 11/13/18 15:19
== END 2018-11-13 15:19 | disposition home or self-care (01) ==
LOC: ED 12:12 → 2E 12:12

== ENCOUNTER 2021-06-26 09:17 | Inpatient (IN) ==
--- NOTE | 2021-06-26 10:12 | Emergency Department Note ---
Impression & Plan 2019 novel coronavirus-infected pneumonia (NCIP), Hypoxia ED Provider Note NAME: LASHELL SANDERS AGE: 89 SEX: M : 1930 ARRIVES VIA: Walk-In INFORMANT: Patient, ED PROVIDER(S): Eric York DO CHIEF COMPLAINT: Shortness of breath HPI: The patient is an 89-year-old male who presented to the emergency department for an evaluation of shortness of breath. The patient describes episodes of shortness of breath which began 2 days ago. Initially the patient was having symptoms over the course the last week. He started having upper respiratory symptoms including sinus congestion and then rhinorrhea. He lost his smell and somewhat lost his taste. He is vaccinated against COVID-19. He has not been exposed to COVID-19 as far as he knows. He started having a cough which initially was not productive but then started having productive sputum. He thought he had a fever but he did not have a fever when he checked in today. The patient has been trying ykkv-[id number]-utnrhwm medication with only minimal relief. Has not been seen by his primary care physician for the symptoms. He states symptoms are significantly worse with exertion. He notices no lower extremity swelling. He notices no chest pain. ROS: See above HPI for pertinent positives & negatives. A total of 10 systems reviewed and were otherwise negative. PAST MEDICAL HISTORY: See Below PAST SURGICAL HISTORY: See Below FAMILY HISTORY: See Below SOCIAL HISTORY: See Below HOME MEDICATIONS: See Below ALLERGIES: See Below VITALS: See Below PHYSICAL EXAMINATION: GENERAL: Patient is awake alert in no acute distress patient is resting comfortably and showing no signs of anxiety EYES: The conjunctivae are clear. The pupils are round and reactive. EARS, NOSE, MOUTH AND THROAT: The nose is without any evidence of any deformity. Mucous membranes are moist. NECK: The neck is nontender and supple. RESPIRATORY: Diminished breath sounds are noted throughout. Faint expiratory wheezing was noted in all lung lay. There was mild conversational dyspnea. CARDIOVASCULAR: Regular rate and rhythm noted there no murmurs rubs or gallops normal S1 normal S2. GASTROINTESTINAL: The abdomen is soft. Abdomen is nontender. MUSCULOSKELETAL/EXTREMITIES: There is no evidence of gross deformity full range of motion is noted in the hips and shoulders. SKIN: There is no obvious evidence of any rash. Trace pedal edema was noted. T here is no calf tenderness. NEUROLOGIC: Patient is awake alert and oriented x3. MEDICAL DECISION MAKING: The patient is an 89-year-old male who presented to the emergency department for an evaluation of difficulty breathing. The patient was experiencing fever and URI symptoms over the course the last week. He presents today because of worsening symptoms and ultimately a cough and difficulty breathing. I discussed the patient's laboratory and radiographic studies with him. He was reevaluated multiple times. The patient was found to have signs of hypoxia. His Covid swab was positive. He was placed on submental oxygen. He was treated with Decadron. Because of the patient's findings I discussed his case with the on-call [facility] hospitalist. They have agreed to evaluate the patient in the emergency department for further management and disposition. Triage Nursing notes reviewed. Prior medical records reviewed Vital Signs: reviewed and remarkable for hypoxia Differential diagnosis: Reactive airway disease, pneumonia, pneumothorax, COPD, CHF, infections, cardiac ischemia, pulmonary embolism, musculoskeletal, gastrointestinal, as well as other pathologies. ER treatment provided: See below Diagnostics interpreted by me: ECG: EKG was obtained in the emergency department. My interpretation is atrial fibrillation at 120 bpm. No PVCs were noted. Nonspecific ST segment abnormalities were noted. This was compared to a tracing from June 102019. Atrial fibrillation has replaced sinus rhythm. Cardiac Monitoring: An order was placed for continuous cardiac monitoring. The monitor shows a rate of 91 bpm with sinus rhythm. Laboratory studies: As stated above and show below. Imaging studies: See below Consultation(s): I discussed this case with Dr. Ayala who is on-call for the [facility]ist group. They have agreed to evaluate the patient in the emergency department. 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 Diastolic heart failure Dyslipidemia False positive test for syphilis GERD (gastroesophageal reflux disease) Hearing deficit Hiatal hernia Hx of gastric ulcer MGUS (monoclonal gammopathy of unknown significance) Multiple lung nodules On anticoagulant therapy eliquis bid Paroxysmal atrial fibrillation Pulmonary emphysema Shortness of breath SOB (shortness of breath) on exertion 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 [facility]. 150mg propofol. no issues. History of orchiectomy History of tonsillectomy and adenoidectomy History of tooth extraction "most of teeth removed" Family History Son Myocardial infarction Other Adopted No family history of adverse response to anesthesia Social History Smoking Status: Never smoker Second Hand Exposure: No; Hx Alcohol Use: Yes Alcohol type: beer and hard liquor Hx Substance Use: No Preferred Language: Chinese Communication Ability: Effective Visual Impairment: No Limitations Hearing Ability: Normal Digital Content Manager Required: No Beliefs That Will Affect Care: None marital status: Current Living Situation: Alone current occupational status: retired Feels Safe at Home: Yes Childhood Exposure to Second-Hand Smoke: No Dental Care, Regularly: No Physical Activity Frequency: Does not Exercise Seatbelt Use: always Sunscreen Use: No Assistive Devices: Glasses Allergies Allergies Allergy/AdvReac Type Severity Reaction Status Date / Time lisinopril AdvReac Mild Cough Verified 06/26/21 11:14 Home Meds Home Medications Medication Instructions Recorded Confirmed aspirin 81 mg tablet,delayed 81 mg PO QAM 05/01/18 06/26/21 release (Aspir-) omega 5-gew-hcv-fish oil 1,000 mg 1,000 mg PO QAM 05/01/18 06/26/21 (120 mg-180 mg) capsule (Fish Oil) omeprazole 20 mg capsule,delayed 20 mg PO QAM 05/01/18 06/26/21 release vitamin E 400 unit capsule 400 unit PO QAM 05/01/18 06/26/21 acetaminophen 325 mg tablet 650 mg PO QAM 11/12/18 06/26/21 (Tylenol) bisacodyl 10 mg rectal suppository 10 mg TX .INSERT 1 SUPPOSITORY #1 11/29/18 06/26/21 ea ascorbate calcium (vitamin C) 500 500 mg PO DAILY 03/30/20 06/26/21 mg tablet ferrous sulfate 325 mg (65 mg 325 mg PO DAILY 03/30/20 06/26/21 iron) tablet furosemide 20 mg tablet 20 mg PO QAM PRN tab 11/18/20 06/26/21 potassium chloride 20 mEq 20 meq PO DAILY tab 06/14/21 06/26/21 tablet,extended release(part/cryst) Previous Rx's Medication Instructions Recorded apixaban 5 mg tablet (Eliquis) 5 mg PO BID #180 tab 08/02/20 atorvastatin 40 mg tablet (Lipitor) 40 mg PO HS #90 tab 09/06/20 albuterol sulfate 90 mcg/actuation 1 inh INHALATION QID PRN #18 g 11/18/20 aerosol inhaler tiotropium bromide 1.25 2 puff INHALATION DAILY #4 g 06/20/21 mcg/actuation mist for inhalation (Spiriva Respimat) Results & Data (ED) Vital Signs Vital Signs - 24 hr 06/26/21 09:46 06/26/21 10:00 06/26/21 10:54 Temperature 35.9 C L Temperature Source Temporal Artery Scan Pulse Rate 114 H Pulse Rate [Apical] 100 H Pulse Rate from SpO2 Sensor Respiratory Rate 18 18 Respiratory Effort / Characteristics Non-Labored Respiratory Depth Normal Respiratory Pattern Regular Blood Pressure 117/63 Blood Pressure [Left Arm] 94/62 L Blood Pressure Mean 81 Blood Pressure Mean [Left Arm] 72 Pulse Oximetry 94 90 97 Oxygen Delivery Method Room Air Room Air Nasal Cannula Oxygen Flow Rate 2 Sepsis Recent Fever Within 48 Hours No Sepsis New/Unexplained Change in Mental Status No Sepsis Action Taken by Nursing Physician Notified Oxygen Flow Rate - Titration 2 Pulse Oximetry Post Tiitration 97 06/26/21 11:00 06/26/21 13:00 06/26/21 14:00 Temperature Temperature Source Pulse Rate 88 Pulse Rate [Apical] 94 H 98 H Pulse Rate from SpO2 Sensor 101 H Respiratory Rate 18 18 23 Respiratory Effort / Characteristics Respiratory Depth Respiratory Pattern Blood Pressure 114/86 Blood Pressure [Left Arm] 117/81 115/89 Blood Pressure Mean 95 Blood Pressure Mean [Left Arm] 93 97 Pulse Oximetry 97 97 95 Oxygen Delivery Method Nasal Cannula Room Air Oxygen Flow Rate 2 2 Sepsis Recent Fever Within 48 Hours Sepsis New/Unexplained Change in Mental Status Sepsis Action Taken by Nursing Oxygen Flow Rate - Titration Pulse Oximetry Post Tiitration 06/26/21 15:00 06/26/21 15:30 06/26/21 16:00 Temperature Temperature Source Pulse Rate 89 98 H 98 H Pulse Rate [Apical] Pulse Rate from SpO2 Sensor 100 H 98 H 109 H Respiratory Rate 23 24 24 Respiratory Effort / Characteristics Respiratory Depth Respiratory Pattern Blood Pressure 117/87 Blood Pressure [Left Arm] Blood Pressure Mean 97 Blood Pressure Mean [Left Arm] Pulse Oximetry 83 L 96 95 Oxygen Delivery Method Room Air Nasal Cannula Nasal Cannula Oxygen Flow Rate 2 2 Sepsis Recent Fever Within 48 Hours Sepsis New/Unexplained Change in Mental Status Sepsis Action Taken by Nursing Oxygen Flow Rate - Titration Pulse Oximetry Post Tiitration 06/26/21 16:30 06/26/21 16:34 Temperature Temperature Source Pulse Rate 102 H Pulse Rate [Apical] 91 H Pulse Rate from SpO2 Sensor 102 H Respiratory Rate 38 H 20 Respiratory Effort / Characteristics Spontaneous Respiratory Depth Respiratory Pattern Blood Pressure Blood Pressure [Left Arm] Blood Pressure Mean Blood Pressure Mean [Left Arm] Pulse Oximetry 95 96 Oxygen Delivery Method Nasal Cannula Nasal Cannula Oxygen Flow Rate 2 2 Sepsis Recent Fever Within 48 Hours Sepsis New/Unexplained Change in Mental Status Sepsis Action Taken by Nursing Oxygen Flow Rate - Titration Pulse Oximetry Post Tiitration Home Medications Current Medication List: was personally reviewed by me Laboratory Data Attestation: I reviewed the patient's lab results. Result diagrams: 06/26/21 10:18 06/26/21 10:18 Lab Results 06/26/21 06/26/21 06/26/21 Range/Units 10:18 10:18 10:18 WBC 4.95 (4.8-10.8) K/uL RBC 3.48 L (4.7-6.1) M/uL Hgb 10.2 L (14.0-18.0) g/dL Hct 32.1 L (42-52) % MCV 92.2 (80-100) fL MCH 29.3 (25-34) pg MCHC 31.8 L (32-36) g/dL RDW Std Deviation 51.7 H (36.4-46.3) fL RDW Coeff of Adrienne 15.2 H (11.5-14.5) % Plt Count 153 (130-400) K/uL MPV 9.2 (7.4-10.4) fL Immature Gran % (Auto) 0.4 % Neut % (Auto) 68.5 % Lymph % (Auto) 19.4 % [place] % (Auto) 10.7 % Eos % (Auto) 0.8 % Baso % (Auto) 0.2 % Neut # (Auto) 3.39 (1.4-6.5) K/uL Lymph # (Auto) 0.96 L (1.2-3.4) K/uL [place] # (Auto) 0.53 (0.11-0.59) K/uL Eos # (Auto) 0.04 (0-0.5) K/uL Baso # (Auto) 0.01 (0-0.2) K/uL Immature Gran # (Auto) 0.02 (0.00-0.02) K/uL PT (9.0-12.0) Seconds INR (0.9-1.1) APTT (21.0-31.0) Seconds PTT Ratio Sodium 139 (136-145) mmol/L Potassium 3.8 (3.5-5.1) mmol/L Chloride 107 (98-107) mmol/L Carbon Dioxide 24 (21-32) mmol/L Anion Gap 8.0 (3-11) BUN 18 (7-18) mg/dl Creatinine 0.98 (0.6-1.4) mg/dl Est Cr Clr Drug Dosing 53.6 ml/min Est GFR ( Amer) 79.5 ml/min Est GFR (Non-Af Amer) 68.6 ml/min BUN/Creatinine Ratio 18.1 (10-20) Glucose 133 H (70-99) mg/dl Calcium 8.3 L (8.5-10.1) mg/dl Magnesium 2.1 (1.8-2.4) mg/dl Total Bilirubin 0.9 (0.2-1) mg/dl AST 16 (15-37) U/L ALT 15 (12-78) U/L Alkaline Phosphatase 98 (45-117) U/L Troponin I < 0.015 (0-0.045) ng/ml NT-Pro-B Natriuret Pep 2186 H (0-1800) pg/ml Total Protein 7.8 (6.4-8.2) gm/dl Albumin 2.9 L (3.4-5.0) gm/dl Globulin 4.9 H (2.5-4.0) gm/dl Albumin/Globulin Ratio 0.6 L (0.9-2) Procalcitonin 0.06 (0-0.5) ng/ml SARS-CoV-2 (PCR) (Negative) Influ A Molecular Assay (Negative) Influ B Molecular Assay (Negative) 06/26/21 06/26/21 06/26/21 Range/Units 10:18 10:30 10:30 WBC (4.8-10.8) K/uL RBC (4.7-6.1) M/uL Hgb (14.0-18.0) g/dL Hct (42-52) % MCV (80-100) fL MCH (25-34) pg MCHC (32-36) g/dL RDW Std Deviation (36.4-46.3) fL RDW Coeff of Adrienne (11.5-14.5) % Plt Count (130-400) K/uL MPV (7.4-10.4) fL Immature Gran % (Auto) % Neut % (Auto) % Lymph % (Auto) % [place] % (Auto) % Eos % (Auto) % Baso % (Auto) % Neut # (Auto) (1.4-6.5) K/uL Lymph # (Auto) (1.2-3.4) K/uL [place] # (Auto) (0.11-0.59) K/uL Eos # (Auto) (0-0.5) K/uL Baso # (Auto) (0-0.2) K/uL Immature Gran # (Auto) (0.00-0.02) K/uL PT 11.4 (9.0-12.0) Seconds INR 1.1 (0.9-1.1) APTT 27.8 (21.0-31.0) Seconds PTT Ratio 1.1 Sodium (136-145) mmol/L Potassium (3.5-5.1) mmol/L Chloride (98-107) mmol/L Carbon Dioxide (21-32) mmol/L Anion Gap (3-11) BUN (7-18) mg/dl Creatinine (0.6-1.4) mg/dl Est Cr Clr Drug Dosing ml/min Est GFR ( Amer) ml/min Est GFR (Non-Af Amer) ml/min BUN/Creatinine Ratio (10-20) Glucose (70-99) mg/dl Calcium (8.5-10.1) mg/dl Magnesium (1.8-2.4) mg/dl Total Bilirubin (0.2-1) mg/dl AST (15-37) U/L ALT (12-78) U/L Alkaline Phosphatase (45-117) U/L Troponin I (0-0.045) ng/ml NT-Pro-B Natriuret Pep (0-1800) pg/ml Total Protein (6.4-8.2) gm/dl Albumin (3.4-5.0) gm/dl Globulin (2.5-4.0) gm/dl Albumin/Globulin Ratio (0.9-2) Procalcitonin (0-0.5) ng/ml SARS-CoV-2 (PCR) POSITIVE A* (Negative) Influ A Molecular Assay Negative (Negative) Influ B Molecular Assay Negative (Negative) Administered Medications Discontinued Medications Dexamethasone Sodium Phosphate (DexamethasonePf 10 Mg/Ml Vial) 10 mg IV NOW ONE Stop: 06/26/21 12:57 Last Admin: 06/26/21 14:04 Dose: 10 mg Documented by: [id number] Sodium Chloride (Nss 1000ml) 500 mls @ 999 mls/hr IV .Q31M ONE Stop: 06/26/21 11:12 Last Infusion: 06/26/21 11:32 Dose: 0 mls/hr Documented by: [id number] Admin: 06/26/21 10:50 Dose: 999 mls/hr Documented by: [id number] Remdesivir 200 mg/ Sodium (Chloride) 250 mls @ 125 mls/hr IV ONE STA; Protocol Stop: 06/26/21 16:44 Last Admin: 06/26/21 16:12 Dose: 125 mls/hr Documented by: [id number] Imaging Data Radiologist's Impression: Chest X-Ray 06/26/21 10:07 XR chest 1V portable CLINICAL HISTORY: Dyspnea. COMPARISON STUDY: 06/03/2020 TECHNIQUE: 1 view of the chest FINDINGS: Single frontal view of the chest demonstrates the heart to be mildly enlarged. Patchy interstitial and alveolar opacities are present bilaterally, right greater than left. The findings are most characteristic of a viral type pneumonitis. Covid 19 pneumonia should be excluded. There is no evidence for pleural effusion. There is no evidence for vascular congestion. There is no acute osseous pathology. IMPRESSION: Patchy interstitial and alveolar opacities bilaterally, right greater than left, characteristic of a viral type pneumonitis and probable early Covid 19 pneumonia. ACT 112: Negative or not required by law. Electronically signed by: Tevin Randall M.D. 06/26/2021 10:57 AM Discharge Plan Visit Data Chief Complaint: Shortness of Breath/Dyspnea Stated Complaint: SOB ED Provider: Eric York Discharge Problem: 2019 novel coronavirus-infected pneumonia (NCIP), Hypoxia Patient Disposition: Being Evaluated by Hospitalist Forms Stand Alone Forms: My [facility] Prescriptions Prescriptions: No Action Eliquis 5 mg tablet 5 mg PO BID Qty: 180 RF: 3 atorvastatin [Lipitor] 40 mg tablet 40 mg PO HS Qty: 90 RF: 3 furosemide 20 mg tablet 20 mg PO QAM PRN (Reason: Fluid Retention) RF: 0 albuterol sulfate 90 mcg/actuation HFA aerosol inhaler 1 inh inhalation QID PRN (Reason: shortness of breath or wheezing) Qty: 18 RF: 2 potassium chloride 20 mEq tablet,ER particles/crystals 20 meq PO DAILY RF: 0 ascorbate calcium (vitamin C) 500 mg tablet 500 mg PO DAILY RF: 0 ferrous sulfate 325 mg (65 mg iron) tablet 325 mg PO DAILY RF: 0 bisacodyl 10 mg suppository 10 mg TX .INSERT 1 SUPPOSITORY Qty: 1 RF: 0 Spiriva Respimat 1.25 mcg/actuation mist 2 puff inhalation DAILY Qty: 4 RF: 2 omeprazole 20 mg Capsule,Delayed Release(Dr/Ec) 20 mg PO QAM RF: 0 aspirin [Aspir-81] 81 mg Tablet,Delayed Release (Dr/Ec) 81 mg PO QAM RF: 0 vitamin E 400 unit Capsule 400 unit PO QAM RF: 0 omega 0-dtv-mfo-fish oil [Fish Oil] 1,000 mg (120 mg-180 mg) Capsule 1,000 mg PO QAM RF: 0 acetaminophen [Tylenol] 325 mg Tablet 650 mg PO QAM RF: 0 Referrals Referrals: Jai Garcia MD [Primary Care Provider] -
[2021-06-26 10:34] LABS: Basophils # (auto) 0.01 K/uL (0-0.2); Basophils % (auto) 0.2 %; Eosinophils # (auto) 0.04 K/uL (0-0.5); Eosinophils % (auto) 0.8 %; Hematocrit (blood only) 32.1 % (42-52); Hemoglobin 10.2 g/dL (14.0-18.0); Immature Granulocytes # (auto) 0.02 K/uL (0.00-0.02); Immature Granulocytes % (auto) 0.4 %; Lymphocytes # (auto) 0.96 K/uL (1.2-3.4); Lymphocytes % (auto) 19.4 %; Mean Corpuscular Hemoglobin 29.3 pg (25-34); Mean Corpuscular Hgb Conc 31.8 g/dL (32-36); Mean Corpuscular Volume 92.2 fL (80-100); Mean Platelet Volume 9.2 fL (7.4-10.4); Monocytes # (auto) 0.53 K/uL (0.11-0.59); Monocytes % (auto) 10.7 %; Neutrophils # (auto) 3.39 K/uL (1.4-6.5); Neutrophils % (auto) 68.5 %; Platelet Count 153 K/uL (130-400); RDW Coefficient of Variation 15.2 % (11.5-14.5); RDW Standard Deviation 51.7 fL (36.4-46.3); Red Blood Count 3.48 M/uL (4.7-6.1); White Blood Count 4.95 K/uL (4.8-10.8)
[2021-06-26] MEDS ORDERED: SODIUM CHLORIDE 0.9% 1000ML 500 ML IV ONE (10:42)
[2021-06-26 10:44] LABS: INR 1.1 (0.9-1.1); Partial Thromboplastin Ratio 1.1; Partial Thromboplastin Time 27.8 Seconds (21.0-31.0); Prothrombin Time 11.4 Seconds (9.0-12.0)
--- NOTE | 2021-06-26 10:47 | Electrocardiogram Report ---
Test Reason : Blood Pressure : / mmHG Vent. Rate : 120 BPM Atrial Rate : 108 BPM P-R Int : 000 ms QRS Dur : 098 ms QT Int : 364 ms P-R-T Axes : 000 047 -11 degrees QTc Int : 514 ms Atrial fibrillation with rapid ventricular response Incomplete right bundle branch block Nonspecific ST abnormality Abnormal ECG When compared with ECG of 10-JUN-2020 07:42, Atrial fibrillation has replaced Sinus rhythm Vent. rate has increased BY 59 BPM Non-specific change in ST segment in Inferior leads Nonspecific T wave abnormality, worse in Inferior leads Confirmed by Glenn Cary ([id number]) on 06/26/2021 10:46:53 AM Referred By: Confirmed By:Gray Cary
[2021-06-26 10:50] LABS: Alanine Aminotransferase 15 U/L (12-78); Albumin Level 2.9 gm/dl (3.4-5.0); Aspartate Aminotransferase 16 U/L (15-37); BUN Creatinine Ratio 18.1 (10-20); Blood Urea Nitrogen 18 mg/dl (7-18); Calcium 8.3 mg/dl (8.5-10.1); Carbon Dioxide 24 mmol/L (21-32); Chloride 107 mmol/L (98-107); Creatinine Clr Calc Pharmacy 53.6 ml/min; Est GFR (African American) 79.5 ml/min; Est GFR (Non-African American) 68.6 ml/min; Glucose 133 mg/dl (70-99); Magnesium 2.1 mg/dl (1.8-2.4); Potassium 3.8 mmol/L (3.5-5.1); Sodium 139 mmol/L (136-145)
[2021-06-26 10:55] LABS: Albumin Globulin Ratio 0.6 (0.9-2); Alkaline Phosphatase 98 U/L (45-117); Bilirubin,Total 0.9 mg/dl (0.2-1); Globulin 4.9 gm/dl (2.5-4.0); NT Pro B Type Natriuretic Pept 2186 pg/ml (0-1800); Total Protein 7.8 gm/dl (6.4-8.2); Troponin I < 0.015 ng/ml (0-0.045)
--- NOTE | 2021-06-26 10:59 | XRay Report ---
XR chest 1V portable CLINICAL HISTORY: Dyspnea. COMPARISON STUDY: 06/03/2020 TECHNIQUE: 1 view of the chest FINDINGS: Single frontal view of the chest demonstrates the heart to be mildly enlarged. Patchy interstitial an d alveolar opacities are present bilaterally, right greater than left. The findings are most characte ristic of a viral type pneumonitis. Covid 19 pneumonia should be excluded. There is no evidence for p leural effusion. There is no evidence for vascular congestion. There is no acute osseous pathology. IMPRESSION: Patchy interstitial and alveolar opacities bilaterally, right greater than left, characte ristic of a viral type pneumonitis and probable early Covid 19 pneumonia. ACT 112: Negative or not required by law. Electronically signed by: Tevin Randall M.D. 06/26/2021 10:57 AM
[2021-06-26 11:13] LABS: Influenza A virus by PCR Negative (Negative); Influenza B virus by PCR Negative (Negative)
[2021-06-26] MEDS ORDERED: dexAMETHasone**PF** 10 MG/ML VIAL IV ONE (12:56)
--- NOTE | 2021-06-26 13:46 | History & Physical Report ---
Date of Service June 26, 2021 Assessment & Plan (1) Pneumonia due to COVID-19 virus: Plan: On day 7 of symptoms at the time of presentation, with bilateral pneumonia on chest x-ray and acute respiratory failure with hypoxia With underlying COPD, rapid atrial fibrillation, and DM2 as well as age being risk factors for worsening disease Requiring 2 L nasal cannula at the time of admission Of note, he is fully vaccinated -Admit to telemetry unit on Covid precautions -Continue dexamethasone 6 mg IV once daily x10-day course -Start Remdesivir x5-day course -Incentive spirometer and flutter valve -Encouraged prone or side sleeping if possible -Continue supplemental O2 to keep pulse ox greater than 90% given underlying COPD -Start duo nebs scheduled every 6 hours -Continue home Spiriva or formulary equivalent -No need for antibiotics as procalcitonin is negative, however he does have COPD and if sputum production picks up, could treat with azithromycin or doxycycline -Follow CBC, CMP, CRP in the morning-if CRP greater than 7.5 and progresses to need for high flow nasal cannula, would be a good candidate for baricitinib (2) Acute respiratory failure with hypoxia: Plan: As above, secondary to Covid-19 with pneumonia Received small normal saline bolus today but appetite has been poor and p.o. intake poor although he feels this is improving already in the ER Okay to restart Lasix 20 mg daily which is home dose to keep lungs dry (3) COPD with emphysema: Plan: Follows with pulmonology Dr. Magaña Continue home inhalers and duo nebs as above Steroids (4) Atrial fibrillation: Plan: Permanent atrial fibrillation-with rapid ventricular response upon admission with rates in the 120s improved with 500 mL bolus of normal saline His appetite and p.o. intake have been poor and likely had some dehydration -Continue home apixaban for anticoagulation -Continue to monitor on telemetry -He is not on rate controlling medications as in the past he has had issues with bradycardia -He previously also was on amiodarone but this was also discontinued for issues with bradycardia Follows with cardiology-Dr. 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 Continue aspirin, apixaban, statin (7) CHF (congestive heart failure): Plan: Chronic diastolic CHF No evidence of volume overload in fact he has hypovolemia causing tachycardia on admission and received 500 mL bolus of normal saline proBNP is elevated at 2106 but again, suspect he is hypovolemic on admission Follow I's and O's Restart home Lasix 20 mg daily in the morning (8) Garibay's esophagus: Plan: Continue PPI (9) Anemia: Plan: Mild normocytic with hemoglobin in the 10-11 range at baseline 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 Continue home ferrous sulfate (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: Plan: No acute issues Watch for urinary retention (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): Plan: As above (12) Carotid artery stenosis: Plan: Follow as an outpatient Continue aspirin, statin (13) Dyslipidemia: Plan: Continue statin Plan: DVT prophylaxis-apixaban Disposition-admit to telemetry in [facility], expect a least a 2 midnight stay Full code as discussed with patient His son Placido would be his decision maker in the event he is not able to make decisions History of Present Illness Chief Complaint: Shortness of breath Primary Care Provider: Jai Garcia MD This patient is an 89-year-old male with a history of CVA, permanent atrial f ibrillation on Eliquis, chronic diastolic CHF, COPD, GERD with Garibay's esophagus, MGUS, subdural hematoma, DM 2, carotid artery stenosis, BPH, and anxiety disorder, who presents to the ER with progressively worsening shortness of breath over the last week. He began with fatigue and did not quite feel right, then developed upper respiratory symptoms including sinus congestion and rhinorrhea, then lost his smell and taste. He then started having a cough which is now productive of sputum. No fevers objectively but he felt feverish. He tested positive for Covid in the ER. Of note, he is fully vaccinated against Covid-19. He was hypoxic in the ER with pulse ox in the high 80s and was placed on supplemental oxygen. His labs were significant for a mild but fairly stable chronic anemia, lymphopenia, elevated proBNP at 2186, negative troponin, and procalcitonin normal at 0.06. His chest x-ray showed patchy interstitial and alveolar opacities bilaterally, right greater than left, consistent with viral pneumonia. He was afebrile, initially with rapid atrial fibrillation in the 120s which improved with 500 mL of normal saline down to the high 90s, and blood pressure was normal. He will be admitted for Covid-19 pneumonia with acute respiratory failure with hypoxia Allergies Allergy/AdvReac Type Severity Reaction Status Date / Time lisinopril AdvReac Mild Cough Verified 06/26/21 11:14 Home Medications Medication Instructions Recorded Confirmed Type aspirin 81 mg tablet,delayed 81 mg PO QAM 05/01/18 06/26/21 History release (Aspir-) omega 4-dfo-fzx-fish oil 1,000 mg 1,000 mg PO QAM 05/01/18 06/26/21 History (120 mg-180 mg) capsule (Fish Oil) omeprazole 20 mg capsule,delayed 20 mg PO QAM 05/01/18 06/26/21 History release vitamin E 400 unit capsule 400 unit PO QAM 05/01/18 06/26/21 History acetaminophen 325 mg tablet 650 mg PO QAM 11/12/18 06/26/21 History (Tylenol) bisacodyl 10 mg rectal suppository 10 mg [place] .INSERT 1 SUPPOSITORY #1 11/29/18 06/26/21 History ea ascorbate calcium (vitamin C) 500 500 mg PO DAILY 03/30/20 06/26/21 History mg tablet ferrous sulfate 325 mg (65 mg 325 mg PO DAILY 03/30/20 06/26/21 History iron) tablet apixaban 5 mg tablet (Eliquis) 5 mg PO BID #180 tab 08/02/20 06/26/21 Rx atorvastatin 40 mg tablet (Lipitor) 40 mg PO HS #90 tab 09/06/20 06/26/21 Rx albuterol sulfate 90 mcg/actuation 1 inh INHALATION QID PRN #18 g 11/18/20 06/26/21 Rx aerosol inhaler furosemide 20 mg tablet 20 mg PO QAM PRN tab 11/18/20 06/26/21 History potassium chloride 20 mEq 20 meq PO DAILY tab 06/14/21 06/26/21 History tablet,extended release(part/cryst) tiotropium bromide 1.25 2 puff INHALATION DAILY #4 g 06/20/21 06/26/21 Rx mcg/actuation mist for inhalation (Spiriva Respimat) 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 Diastolic heart failure Dyslipidemia False positive test for syphilis GERD (gastroesophageal reflux disease) Hearing deficit Hiatal hernia Hx of gastric ulcer MGUS (monoclonal gammopathy of unknown significance) Multiple lung nodules On anticoagulant therapy eliquis bid Paroxysmal atrial fibrillation Pulmonary emphysema Shortness of breath SOB (shortness of breath) on exertion 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 TAKEN TO [facility]-R SIDED NUMBNESS/WEAKNESS-RESIDUAL EFFECT IMPAIRED MEMORY-WALKS WITH A SLIGHT LIMP-ON THINNER-F/U PCP Subdural hematoma 2015 FALL AND HIT HEAD AND NO RESIDUAL ISSUES Type 2 diabetes mellitus Vitamin D deficiency disease Surgical History History of appendectomy History of bilateral cataract extraction History of cardioversion X 2 History of colonoscopy History of esophagogastroduodenoscopy (EGD) 03/05/2019. [facility]. 150mg propofol. no issues. 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 Beliefs That Will Affect Care: None marital status: Current Living Situation: Alone current occupational status: retired Feels Safe at Home: Yes Childhood Exposure to Second-Hand Smoke: No Dental Care, Regularly: No Physical Activity Frequency: Does not Exercise Seatbelt Use: always Sunscreen Use: No Assistive Devices: Glasses Review of Systems Review of Systems: All systems reviewed & are unremarkable except as noted in HPI & below Denies chest pain, no nausea or vomiting, no diarrhea or abdominal pains Physical Exam Constitutional: WD/WN, vitals as above Eyes: + anicteric sclerae ENMT: external ear and nose normal, oropharynx normal Neck: trachea midline, no thyromegaly Respiratory: normal respiratory effort Auscultation: + diminished lung sounds (Throughout) and + crackles (At lower and middle lung lay bilaterally) Cardiovascular: Rate/Rhythm: regular rate and + irregularly irregular Heart Sounds: no murmur Extremities: no edema Chest (Breasts): Chest: normal inspection of chest Gastrointestinal (Abdomen): normal bowel sounds, soft, nontender, no hepatosplenomegaly Musculoskeletal: Extremities: extremities normal to inspection; no cyanosis and no clubbing Skin: no rashes, warm and dry Neurologic: moves all extremities and awake; no focal motor deficits Psychiatric: A+Ox3, euthymic affect Lymphatic: no lymphedema Results & Data Results & Data ([facility]) Vital Signs (Past 12 Hours) Vital Signs Temp Pulse Pulse Resp BP BP Pulse Ox 06/26/21 13:00 98 H 18 115/89 97 06/26/21 11:00 94 H 18 117/81 97 06/26/21 10:54 97 06/26/21 10:00 100 H 18 94/62 L 90 06/26/21 09:46 35.9 C L 114 H 18 117/63 94 Laboratory Results 06/26/21 06/26/21 06/26/21 Range/Units 10:30 10:30 10:18 WBC (4.8-10.8) K/uL RBC (4.7-6.1) M/uL Hgb (14.0-18.0) g/dL Hct (42-52) % MCV (80-100) fL MCH (25-34) pg MCHC (32-36) g/dL RDW Std Deviation (36.4-46.3) fL RDW Coeff of Adrienne (11.5-14.5) % Plt Count (130-400) K/uL MPV (7.4-10.4) fL Immature Gran % (Auto) % Neut % (Auto) % Lymph % (Auto) % Wilkin % (Auto) % Eos % (Auto) % Baso % (Auto) % Neut # (Auto) (1.4-6.5) K/uL Lymph # (Auto) (1.2-3.4) K/uL Wilkin # (Auto) (0.11-0.59) K/uL Eos # (Auto) (0-0.5) K/uL Baso # (Auto) (0-0.2) K/uL Immature Gran # (Auto) (0.00-0.02) K/uL PT 11.4 (9.0-12.0) Seconds INR 1.1 (0.9-1.1) APTT 27.8 (21.0-31.0) Seconds PTT Ratio 1.1 Sodium (136-145) mmol/L Potassium (3.5-5.1) mmol/L Chloride (98-107) mmol/L Carbon Dioxide (21-32) mmol/L Anion Gap (3-11) BUN (7-18) mg/dl Creatinine (0.6-1.4) mg/dl Est Cr Clr Drug Dosing ml/min Est GFR ( Amer) ml/min Est GFR (Non-Af Amer) ml/min BUN/Creatinine Ratio (10-20) Glucose (70-99) mg/dl Calcium (8.5-10.1) mg/dl Magnesium (1.8-2.4) mg/dl Total Bilirubin (0.2-1) mg/dl AST (15-37) U/L ALT (12-78) U/L Alkaline Phosphatase (45-117) U/L Troponin I (0-0.045) ng/ml NT-Pro-B Natriuret Pep (0-1800) pg/ml Total Protein (6.4-8.2) gm/dl Albumin (3.4-5.0) gm/dl Globulin (2.5-4.0) gm/dl Albumin/Globulin Ratio (0.9-2) Procalcitonin (0-0.5) ng/ml SARS-CoV-2 (PCR) POSITIVE A* (Negative) Influ A Molecular Assay Negative (Negative) Influ B Molecular Assay Negative (Negative) 06/26/21 06/26/21 06/26/21 Range/Units 10:18 10:18 10:18 WBC 4.95 (4.8-10.8) K/uL RBC 3.48 L (4.7-6.1) M/uL Hgb 10.2 L (14.0-18.0) g/dL Hct 32.1 L (42-52) % MCV 92.2 (80-100) fL MCH 29.3 (25-34) pg MCHC 31.8 L (32-36) g/dL RDW Std Deviation 51.7 H (36.4-46.3) fL RDW Coeff of Adrienne 15.2 H (11.5-14.5) % Plt Count 153 (130-400) K/uL MPV 9.2 (7.4-10.4) fL Immature Gran % (Auto) 0.4 % Neut % (Auto) 68.5 % Lymph % (Auto) 19.4 % Wilkin % (Auto) 10.7 % Eos % (Auto) 0.8 % Baso % (Auto) 0.2 % Neut # (Auto) 3.39 (1.4-6.5) K/uL Lymph # (Auto) 0.96 L (1.2-3.4) K/uL Wilkin # (Auto) 0.53 (0.11-0.59) K/uL Eos # (Auto) 0.04 (0-0.5) K/uL Baso # (Auto) 0.01 (0-0.2) K/uL Immature Gran # (Auto) 0.02 (0.00-0.02) K/uL PT (9.0-12.0) Seconds INR (0.9-1.1) APTT (21.0-31.0) Seconds PTT Ratio Sodium 139 (136-145) mmol/L Potassium 3.8 (3.5-5.1) mmol/L Chloride 107 (98-107) mmol/L Carbon Dioxide 24 (21-32) mmol/L Anion Gap 8.0 (3-11) BUN 18 (7-18) mg/dl Creatinine 0.98 (0.6-1.4) mg/dl Est Cr Clr Drug Dosing 53.6 ml/min Est GFR ( Amer) 79.5 ml/min Est GFR (Non-Af Amer) 68.6 ml/min BUN/Creatinine Ratio 18.1 (10-20) Glucose 133 H (70-99) mg/dl Calcium 8.3 L (8.5-10.1) mg/dl Magnesium 2.1 (1.8-2.4) mg/dl Total Bilirubin 0.9 (0.2-1) mg/dl AST 16 (15-37) U/L ALT 15 (12-78) U/L Alkaline Phosphatase 98 (45-117) U/L Troponin I < 0.015 (0-0.045) ng/ml NT-Pro-B Natriuret Pep 2186 H (0-1800) pg/ml Total Protein 7.8 (6.4-8.2) gm/dl Albumin 2.9 L (3.4-5.0) gm/dl Globulin 4.9 H (2.5-4.0) gm/dl Albumin/Globulin Ratio 0.6 L (0.9-2) Procalcitonin 0.06 (0-0.5) ng/ml SARS-CoV-2 (PCR) (Negative) Influ A Molecular Assay (Negative) Influ B Molecular Assay (Negative) Diagnostic Findings Chest X-Ray 06/26/21 10:07 XR chest 1V portable CLINICAL HISTORY: Dyspnea. COMPARISON STUDY: 06/03/2020 TECHNIQUE: 1 view of the chest FINDINGS: Single frontal view of the chest demonstrates the heart to be mildly enlarged. Patchy interstitial and alveolar opacities are present bilaterally, right greater than left. The findings are most characteristic of a viral type pneumonitis. Covid 19 pneumonia should be excluded. There is no evidence for pleural effusion. There is no evidence for vascular congestion. There is no acute osseous pathology. IMPRESSION: Patchy interstitial and alveolar opacities bilaterally, right greater than left, characteristic of a viral type pneumonitis and probable early Covid 19 pneumonia. ACT 112: Negative or not required by law. Electronically signed by: Tevin Randall M.D. 06/26/2021 10:57 AM ECG Additional Comments: ECG on 06/26/2021 with atrial fibrillation with RVR, rate 120, incomplete RBBB, nonspecific ST abnormality in inferior leads Code Status & VTE Plan Code Status Full code VTE Prophylaxis Plan VTE Prophylaxis will be ordered: Yes PG Care Time/CCT Total # of Minutes Spent Total Time Spent with Patient: Total time spent is greater than 50% in coordination of care (as documented) at patient's floor/unit and/or counseling patient: Coding Level of Care Code 45409 Initial In Care Lvl 3 Diagnoses COPD with emphysema J43.9 Atrial fibrillation I48.91 History of stroke Z86.73 CHF (congestive heart failure) I50.33 Heart failure chronicity: acute on chronic Heart failure type: diastolic MGUS (monoclonal gammopathy of unknown significance) D47.2 Garibay's esophagus K22.70 Anemia D64.9 BPH associated with nocturia N40.1; R35.1 Carotid artery stenosis I65.29 Dyslipidemia E78.5 Type 2 diabetes mellitus E11.9 Pneumonia due to COVID-19 virus U07.1; J12.82 Acute respiratory failure with hypoxia J96.01 (1) CHF (congestive heart failure) Heart failure chronicity: acute on chronic Heart failure type: diastolic Qualified Code(s): I50.33 - Acute on chronic diastolic (congestive) heart failure
[2021-06-26] MEDS ORDERED: REMDESIVIR 200 MG in SODIUM CHLORIDE 0.9% 210 ML IV STA (14:45)
[2021-06-26] MEDS ORDERED: ALBUT/IPRATROP 3MG/0.5MG NEB 3 ML VIAL ONE (16:30)
[2021-06-26] MEDS ORDERED: ONDANSETRON INJ 2 MG/ML 2 ML VIAL IV PRN (18:52)
[2021-06-26] MEDS ORDERED: GLUCOSE 40% GEL 15 GM TUBE PO PRN (18:52)
[2021-06-26] MEDS ORDERED: DEXTROSE 50% 50 ML SYRINGE IV PRN (18:52)
[2021-06-26] MEDS ORDERED: ACETAMINOPHEN 325 MG TAB PO PRN (18:52)
[2021-06-26] MEDS ORDERED: CARBOHYDRATES FOR HYPOGLYCEMIA PO PRN (18:52)
[2021-06-26] MEDS ORDERED: POLYETHYLENE (MIRALAX) 17 GM PACK PO PRN (18:52)
[2021-06-26] MEDS ORDERED: GLUCOSE 10 TABS/TUBE PO PRN (18:52)
[2021-06-26] MEDS ORDERED: GLUCAGON FOR INJ 1 MG VIAL SQ PRN (18:52)
[2021-06-26] MEDS: ALBUT/IPRATROP 3MG/0.5MG NEB 3 ML VIAL NEB SCH ×2 (19:41)
[2021-06-26] MEDS: APIXABAN 5 MG TABLET PO SCH (20:44)
[2021-06-26] MEDS: INSULIN ASPART 100 UNITS/ML 3 ML PEN SC SCH ×2 (20:52→20:59)
[2021-06-26] MEDS: ATORVASTATIN 40 MG TAB PO SCH (21:52)
[2021-06-27] MEDS: ALBUT/IPRATROP 3MG/0.5MG NEB 3 ML VIAL NEB SCH ×2 (07:27→10:29)
[2021-06-27] MEDS: UMECLIDINIUM BROMIDE 62.5MCG/BLISTER 7 PUFFS/INHALER INH SCH (08:02)
[2021-06-27] MEDS: POTASSIUM CHLORIDE CRTAB 20 MEQ TABCR PO SCH (08:02)
[2021-06-27] MEDS: FUROSEMIDE 20 MG TAB PO SCH (08:02)
[2021-06-27] MEDS: PANTOprazole 40 MG TAB PO SCH (08:03)
[2021-06-27] MEDS: ASPIRIN 81 MG ECTAB PO SCH (08:03)
[2021-06-27] MEDS: FERROUS SULFATE 325 MG TAB PO SCH (08:03)
[2021-06-27] MEDS: ASCORBIC ACID 500 MG TAB PO SCH (08:03)
[2021-06-27] MEDS: dexAMETHasone 6 MG in SYRINGE 0 ML IV SCH (08:03)
[2021-06-27] MEDS: APIXABAN 5 MG TABLET PO SCH ×2 (08:03→20:05)
[2021-06-27] MEDS: INSULIN ASPART 100 UNITS/ML 3 ML PEN SC SCH ×3 (08:09→21:10)
[2021-06-27 08:18] LABS: Basophils # (auto) 0.01 K/uL (0-0.2); Basophils % (auto) 0.2 %; Hematocrit (blood only) 33.3 % (42-52); Hemoglobin 10.4 g/dL (14.0-18.0); Immature Granulocytes # (auto) 0.02 K/uL (0.00-0.02); Immature Granulocytes % (auto) 0.4 %; Lymphocytes # (auto) 1.01 K/uL (1.2-3.4); Lymphocytes % (auto) 19.5 %; Mean Corpuscular Hemoglobin 28.7 pg (25-34); Mean Corpuscular Hgb Conc 31.2 g/dL (32-36); Monocytes % (auto) 5.8 %; Neutrophils # (auto) 3.84 K/uL (1.4-6.5); Neutrophils % (auto) 74.1 %; Platelet Count 140 K/uL (130-400); RDW Standard Deviation 50.9 fL (36.4-46.3); Red Blood Count 3.62 M/uL (4.7-6.1); White Blood Count 5.18 K/uL (4.8-10.8)
[2021-06-27 08:44] LABS: Albumin Level 2.7 gm/dl (3.4-5.0); BUN Creatinine Ratio 20.2 (10-20); C Reactive Protein 6.49 mg/dl (0-0.29); Calcium 8.4 mg/dl (8.5-10.1); Est GFR (African American) 64.8 ml/min; Est GFR (Non-African American) 55.9 ml/min; Magnesium 2.3 mg/dl (1.8-2.4); Potassium 4.1 mmol/L (3.5-5.1)
[2021-06-27 08:47] LABS: Albumin Globulin Ratio 0.5 (0.9-2); Bilirubin,Total 0.5 mg/dl (0.2-1); Globulin 5.1 gm/dl (2.5-4.0); Phosphorus 3.2 mg/dl (2.5-4.9); Total Protein 7.8 gm/dl (6.4-8.2)
[2021-06-27 10:32] LABS: Estimated Average Glucose 117 mg/dl; Hemoglobin A1C 5.7 % (4.5-5.6)
[2021-06-27] MEDS ORDERED: ALBUT/IPRATROP 3MG/0.5MG NEB 3 ML VIAL NEB PRN (10:32)
--- NOTE | 2021-06-27 10:51 | Hospitalist Progress Note ---
Date of Service June 27, 2021 Assessment & Plan (1) Pneumonia due to COVID-19 virus: Plan: On day 7 of symptoms at the time of presentation, with bilateral pneumonia on chest x-ray and acute respiratory failure with hypoxia With underlying COPD, rapid atrial fibrillation, and DM2 as well as age being risk factors for worsening disease Requiring 2 L nasal cannula at the time of admission Of note, he is fully vaccinated continue dexamethasone and Remdesivir, day 2 of treatment feeling better, down to 1L NC with saturations 91% he says he feels strong enough to go home, told him if we get him to room air he can go, maybe tomorrow he is eating more no indication for antibiotics (2) Acute respiratory failure with hypoxia: Plan: As above, secondary to Covid-19 with pneumonia Received small normal saline bolus today but appetite has been poor and p.o. intake poor although he feels this is improving already in the ER treat COVID with dexamethasone and Remdesivir continue home Lasix dose down to 1L can go home tomorrow if down to room air (3) COPD with emphysema: Plan: Follows with pulmonology Dr. Magaña Continue home inhalers and duo nebs as above Steroids no wheezing today (4) Atrial fibrillation: Plan: Permanent atrial fibrillation-with rapid ventricular response upon admission with rates in the 120s improved with 500 mL bolus of normal saline His appetite and p.o. intake have been poor and likely had some dehydration -Continue home apixaban for anticoagulation -Continue to monitor on telemetry -He is not on rate controlling medications as in the past he has had issues with bradycardia -He previously also was on amiodarone but this was also discontinued for issues with bradycardia Follows with cardiology-Dr. 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 Continue aspirin, apixaban, statin (7) CHF (congestive heart failure): Plan: Chronic diastolic CHF No evidence of volume overload in fact he has hypovolemia causing tachycardia on admission and received 500 mL bolus of normal saline proBNP is elevated at 2106 but again, suspect he is hypovolemic on admission Follow I's and O's Restart home Lasix 20 mg daily (8) Garibay's esophagus: Plan: Continue PPI (9) Anemia: Plan: Mild normocytic with hemoglobin in the 10-11 range at baseline 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 Continue home ferrous sulfate (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: Plan: No acute issues Watch for urinary retention (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): Plan: As above (12) Carotid artery stenosis: Plan: Follow as an outpatient Continue aspirin, statin (13) Dyslipidemia: Plan: Continue statin Plan: DVT prophylaxis-apixaban Disposition-admit to telemetry in [facility], expect a least a 2 midnight stay likely okay for discharge on 06/28 if he is off oxygen Full code as discussed with patient His son Placido would be his decision maker in the event he is not able to make decisions Admission and Anticipated Discharge Date Admission Date: June 26, 2021 Subjective patient says he is feeling better since he got here, he is breathing easier, eating more he is down to 1L NC and saturations are 91% no distress, no cough, he can ambulate to the toilet and back he asked about going home, I told him if we get him to room air he can go home tomorrow he asked if the COVID vaccines helped him, I told him that they likely decreased his symptoms he says his symptoms started a little before Thanksgiving Review of Systems Review of Systems: All systems reviewed & are unremarkable except as noted in Subjective Physical Exam Physical Exam: General: well developed, well nourished, elderly male, no acute distress, comfortable Neck: supple, trachea midline, normal thyroid Lungs: clear to auscultation bilaterally, normal respiratory effort, no accessory muscle use, no distress Heart: regular S1 and S2, no murmur, peripheral pulses normal, capillary refill normal, no edema Abdomen: soft, NT, ND, + BS, no hepatomegaly, normal to percussion Extremities: normal in appearance, no cyanosis, no petechiae, strength is 5/5 bilaterally Neuro: awake, cooperative, moves all extremities, no focal motor deficits, CN II-XII intact, sensation in extremities intact, normal speech Skin: warm, dry, no rash, normal turgor Psych: Awake, alert oriented x 3, euthymic affect Results & Data Results & Data ([facility]) Vital Signs (Past 12 Hours) Vital Signs Temp Pulse Pulse Resp BP Pulse Ox 06/27/21 07:39 36.6 C 97 H 20 119/83 91 06/27/21 07:27 78 20 94 06/27/21 02:40 93 H 06/27/21 02:39 36.6 C 99 H 16 129/84 97 06/27/21 00:00 98 H 22 109/66 95 Laboratory Results Laboratory Results - last 24 hr 06/26/21 06/26/21 06/26/21 10:18 10:18 10:30 WBC RBC Hgb Hct MCV MCH MCHC RDW Std Deviation RDW Coeff of Adrienne Plt Count MPV Immature Gran % (Auto) Neut % (Auto) Lymph % (Auto) [place] % (Auto) Eos % (Auto) Baso % (Auto) Neut # (Auto) Lymph # (Auto) [place] # (Auto) Eos # (Auto) Baso # (Auto) Immature Gran # (Auto) Sodium 139 Potassium 3.8 Chloride 107 Carbon Dioxide 24 Anion Gap 8.0 BUN 18 Creatinine 0.98 Est Cr Clr Drug Dosing 53.6 Est GFR ( Amer) 79.5 Est GFR (Non-Af Amer) 68.6 BUN/Creatinine Ratio 18.1 Glucose 133 H POC Glucose Estimat Average Glucose Hemoglobin A1c Calcium 8.3 L Phosphorus Magnesium 2.1 Total Bilirubin 0.9 AST 16 ALT 15 Alkaline Phosphatase 98 Troponin I < 0.015 C-Reactive Protein NT-Pro-B Natriuret Pep 2186 H Total Protein 7.8 Albumin 2.9 L Globulin 4.9 H Albumin/Globulin Ratio 0.6 L Procalcitonin 0.06 SARS-CoV-2 (PCR) Influ A Molecular Assay Negative Influ B Molecular Assay Negative 06/26/21 06/26/21 06/27/21 10:30 20:46 02:53 WBC RBC Hgb Hct MCV MCH MCHC RDW Std Deviation RDW Coeff of Adrienne Plt Count MPV Immature Gran % (Auto) Neut % (Auto) Lymph % (Auto) [place] % (Auto) Eos % (Auto) Baso % (Auto) Neut # (Auto) Lymph # (Auto) [place] # (Auto) Eos # (Auto) Baso # (Auto) Immature Gran # (Auto) Sodium Potassium Chloride Carbon Dioxide Anion Gap BUN Creatinine Est Cr Clr Drug Dosing Est GFR ( Amer) Est GFR (Non-Af Amer) BUN/Creatinine Ratio Glucose POC Glucose 173 H 142 H Estimat Average Glucose Hemoglobin A1c Calcium Phosphorus Magnesium Total Bilirubin AST ALT Alkaline Phosphatase Troponin I C-Reactive Protein NT-Pro-B Natriuret Pep Total Protein Albumin Globulin Albumin/Globulin Ratio Procalcitonin SARS-CoV-2 (PCR) POSITIVE A* Influ A Molecular Assay Influ B Molecular Assay 06/27/21 06/27/21 06/27/21 07:57 07:57 07:57 WBC 5.18 RBC 3.62 L Hgb 10.4 L Hct 33.3 L MCV 92.0 MCH 28.7 MCHC 31.2 L RDW Std Deviation 50.9 H RDW Coeff of Adrienne 15.0 H Plt Count 140 MPV 9.0 Immature Gran % (Auto) 0.4 Neut % (Auto) 74.1 Lymph % (Auto) 19.5 [place] % (Auto) 5.8 Eos % (Auto) 0.0 Baso % (Auto) 0.2 Neut # (Auto) 3.84 Lymph # (Auto) 1.01 L [place] # (Auto) 0.30 Eos # (Auto) 0.00 Baso # (Auto) 0.01 Immature Gran # (Auto) 0.02 Sodium 141 Potassium 4.1 Chloride 109 H Carbon Dioxide 24 Anion Gap 8.0 BUN 23 H Creatinine 1.16 Est Cr Clr Drug Dosing 46.0 Est GFR ( Amer) 64.8 Est GFR (Non-Af Amer) 55.9 BUN/Creatinine Ratio 20.2 H Glucose 137 H POC Glucose Estimat Average Glucose 117 Hemoglobin A1c 5.7 H Calcium 8.4 L Phosphorus 3.2 Magnesium 2.3 Total Bilirubin 0.5 AST 15 ALT 16 Alkaline Phosphatase 103 Troponin I C-Reactive Protein 6.49 H NT-Pro-B Natriuret Pep Total Protein 7.8 Albumin 2.7 L Globulin 5.1 H Albumin/Globulin Ratio 0.5 L Procalcitonin SARS-CoV-2 (PCR) Influ A Molecular Assay Influ B Molecular Assay 06/27/21 08:07 WBC RBC Hgb Hct MCV MCH MCHC RDW Std Deviation RDW Coeff of Adrienne Plt Count MPV Immature Gran % (Auto) Neut % (Auto) Lymph % (Auto) [place] % (Auto) Eos % (Auto) Baso % (Auto) Neut # (Auto) Lymph # (Auto) [place] # (Auto) Eos # (Auto) Baso # (Auto) Immature Gran # (Auto) Sodium Potassium Chloride Carbon Dioxide Anion Gap BUN Creatinine Est Cr Clr Drug Dosing Est GFR ( Amer) Est GFR (Non-Af Amer) BUN/Creatinine Ratio Glucose POC Glucose 129 H Estimat Average Glucose Hemoglobin A1c Calcium Phosphorus Magnesium Total Bilirubin AST ALT Alkaline Phosphatase Troponin I C-Reactive Protein NT-Pro-B Natriuret Pep Total Protein Albumin Globulin Albumin/Globulin Ratio Procalcitonin SARS-CoV-2 (PCR) Influ A Molecular Assay Influ B Molecular Assay Medications Administered Current Inpatient Medications Acetaminophen (Acetaminophen 325 Mg Tab) 650 mg PO Q6H PRN PRN Reason: pain or fever Stop: 07/26/21 18:51 Albuterol (Albut/Ipratrop 3mg/0.5mg Neb 3 Ml Vial) 3 ml NEB QIDR PRN PRN Reason: Shortness Of Breath Or Wheezing Stop: 07/26/21 18:51 Apixaban (Apixaban 5 Mg Tablet) 5 mg PO BID [facility] [place] Stop: 07/26/21 20:59 Last Admin: 06/27/21 08:03 Dose: 5 mg Documented by: Ascorbic Acid (Ascorbic Acid 500 Mg Tab) 500 mg PO DAILY PHILIP Stop: 07/27/21 08:59 Last Admin: 06/27/21 08:03 Dose: 500 mg Documented by: Aspirin (Aspirin 81 Mg Ectab) 81 mg PO QAM PHILIP Stop: 07/27/21 08:59 Last Admin: 06/27/21 08:03 Dose: 81 mg Documented by: Atorvastatin Calcium (Atorvastatin 40 Mg Tab) 40 mg PO HS PHILIP Stop: 07/26/21 20:59 Last Admin: 06/26/21 21:52 Dose: 40 mg Documented by: Dextrose (Dextrose 50% 50 Ml Syringe) 25 - 50 ml IV UD PRN; Protocol PRN Reason: Hypoglycemia Protocol Stop: 07/26/21 18:51 Ferrous Sulfate (Ferrous Sulfate 325 Mg Tab) 325 mg PO DAILY PHILIP Stop: 07/27/21 08:59 Last Admin: 06/27/21 08:03 Dose: 325 mg Documented by: Furosemide (Furosemide 20 Mg Tab) 20 mg PO QAM PHILIP Stop: 07/27/21 08:59 Last Admin: 06/27/21 08:02 Dose: 20 mg Documented by: Glucagon (Glucagon For Inj 1 Mg Vial) 1 mg SQ UD PRN; Protocol PRN Reason: Hypoglycemia Protocol Stop: 07/26/21 18:51 Glucose (Glucose 10 Tabs/Tube) 4 - 8 tabs PO UD PRN; Protocol PRN Reason: Hypoglycemia Protocol Stop: 07/26/21 18:51 Glucose (Glucose 40% Gel 15 Gm Tube) 15 - 30 gm PO UD PRN; Protocol PRN Reason: Hypoglycemia Protocol Stop: 07/26/21 18:51 Dexamethasone 6 mg/ Syringe 1.5 mls @ 1 mls/min IV QAM PHILIP Stop: 07/27/21 08:59 Last Admin: 06/27/21 08:03 Dose: 1 mls/min Documented by: Remdesivir 100 mg/ Sodium (Chloride) 250 mls @ 250 mls/hr IV Q24H PHILIP; Protocol Stop: 06/30/21 20:59 Insulin Aspart (Insulin Aspart 100 Units/Ml 3 Ml Pen) 0 units SC ACHS PHILIP Stop: 07/26/21 18:51 Last Admin: 06/27/21 08:09 Dose: Not Given Documented by: Miscellaneous (Carbohydrates For Hypoglycemia ) 15 - 30 gm PO UD PRN PRN Reason: Hypoglycemia Protocol Stop: 07/26/21 18:51 Ondansetron HCl (Ondansetron Inj 2 Mg/Ml 2 Ml Vial) 4 mg IV Q6H PRN PRN Reason: Nausea Stop: 07/26/21 18:51 Pantoprazole Sodium (Pantoprazole 40 Mg Tab) 40 mg PO QAM PHILIP; Protocol Stop: 07/27/21 08:59 Last Admin: 06/27/21 08:03 Dose: 40 mg Documented by: Polyethylene Glycol (Polyethylene (Miralax) 17 Gm Pack) 17 gm PO DAILY PRN PRN Reason: Constipation Stop: 07/26/21 18:51 Potassium Chloride (Potassium Chloride Crtab 20 Meq Tabcr) 20 meq PO DAILY PHILIP Stop: 07/27/21 08:59 Last Admin: 06/27/21 08:02 Dose: 20 meq Documented by: Sodium Chloride (Sodium Chloride 0.9% 10ml Flush) 30 ml IV Q24H PHILIP Stop: 06/30/21 21:01 Umeclidinium [place] (Umeclidinium [place] 62.5mcg/Blister 7 Puffs/Inhaler) 1 puffs INH DAILY PHILIP; Protocol Stop: 07/27/21 08:59 Last Admin: 06/27/21 08:02 Dose: 1 puffs Documented by: PG Care Time/CCT Total # of Minutes Spent Total Time Spent with Patient: Total time spent is greater than 50% in coordination of care (as documented) at patient's floor/unit and/or counseling patient: Coding Level of Care Code 11467 Subseq Hosp Care Lvl 3 Diagnoses Pneumonia due to COVID-19 virus U07.1; J12.82 Acute respiratory failure with hypoxia J96.01 COPD with emphysema J43.9 Atrial fibrillation I48.91 Type 2 diabetes mellitus E11.9 History of stroke Z86.73 CHF (congestive heart failure) I50.33 Heart failure type: diastolic Heart failure chronicity: acute on chronic Garibay's esophagus K22.70 Anemia D64.9 BPH associated with nocturia N40.1; R35.1 MGUS (monoclonal gammopathy of unknown significance) D47.2 Carotid artery stenosis I65.29 Dyslipidemia E78.5 (1) CHF (congestive heart failure) Heart failure type: diastolic Heart failure chronicity: acute on chronic Qualified Code(s): I50.33 - Acute on chronic diastolic (congestive) heart failure
[2021-06-27] MEDS ORDERED: REMDESIVIR 100 MG in SODIUM CHLORIDE 0.9% 230 ML IV SCH (20:00)
[2021-06-27] MEDS: ATORVASTATIN 40 MG TAB PO SCH (20:05)
[2021-06-27] MEDS ORDERED: SODIUM CHLORIDE 0.9% 10ML FLUSH IV SCH (21:00)
[2021-06-28] MEDS: INSULIN ASPART 100 UNITS/ML 3 ML PEN SC SCH ×3 (03:40→12:18)
[2021-06-28 06:19] LABS: Est GFR (African American) 86.9 ml/min
[2021-06-28] MEDS: UMECLIDINIUM BROMIDE 62.5MCG/BLISTER 7 PUFFS/INHALER INH SCH (08:22)
[2021-06-28] MEDS: PANTOprazole 40 MG TAB PO SCH (08:22)
[2021-06-28] MEDS: ASCORBIC ACID 500 MG TAB PO SCH (08:22)
[2021-06-28] MEDS: APIXABAN 5 MG TABLET PO SCH (08:22)
[2021-06-28] MEDS: FUROSEMIDE 20 MG TAB PO SCH (08:22)
[2021-06-28] MEDS: ASPIRIN 81 MG ECTAB PO SCH (08:22)
[2021-06-28] MEDS: FERROUS SULFATE 325 MG TAB PO SCH (08:22)
[2021-06-28] MEDS: dexAMETHasone 6 MG in SYRINGE 0 ML IV SCH (08:22)
--- NOTE | 2021-06-28 08:57 | Hospitalist Progress Note ---
Date of Service June 28, 2021 Assessment & Plan (1) Pneumonia due to COVID-19 virus: Plan: On day 7 of symptoms at the time of presentation, with bilateral pneumonia on chest x-ray and acute respiratory failure with hypoxia With underlying COPD, rapid atrial fibrillation, and DM2 as well as age being risk factors for worsening disease Requiring 2 L nasal cannula at the time of admission Of note, he is fully vaccinated continue dexamethasone and Remdesivir, now on room air he says he feels back to his baseline he is eating more no indication for antibiotics (2) Acute respiratory failure with hypoxia: Plan: As above, secondary to Covid-19 with pneumonia treat COVID with dexamethasone and Remdesivir continue home Lasix dose (3) COPD with emphysema: Plan: Follows with pulmonology Dr. Magaña Continue home inhalers and duo nebs as above Steroids seems stable (4) Atrial fibrillation: Plan: Permanent atrial fibrillation-with rapid ventricular response upon admission with rates in the 120s improved with 500 mL bolus of normal saline His appetite and p.o. intake have been poor and likely had some dehydration -Continue home apixaban for anticoagulation -He is not on rate controlling medications as in the past he has had issues with bradycardia -He previously also was on amiodarone but this was also discontinued for issues with bradycardia Follows with cardiology-Dr. 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 Continue aspirin, apixaban, statin (7) CHF (congestive heart failure): Plan: Chronic diastolic CHF No evidence of volume overload in fact he has hypovolemia causing tachycardia on admission and received 500 mL bolus of normal saline proBNP is elevated at 2106 but again, suspect he is hypovolemic on admission Restarted home Lasix 20 mg daily (8) Garibay's esophagus: Plan: Continue PPI (9) Anemia: Plan: Mild normocytic with hemoglobin in the 10-11 range at baseline 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 Continue home ferrous sulfate (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: Plan: No acute issues Watch for urinary retention (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): Plan: As above (12) Carotid artery stenosis: Plan: Follow as an outpatient Continue aspirin, statin (13) Dyslipidemia: Plan: Continue statin Plan: DVT prophylaxis-apixaban Full code as discussed with patient His son Placido would be his decision maker in the event he is not able to make decisions Admission and Anticipated Discharge Date Admission Date: June 26, 2021 Results & Data Results & Data ([facility]) Vital Signs (Past 12 Hours) Vital Signs Temp Pulse Pulse Resp BP Pulse Ox 06/28/21 07:48 97.5 F L 85 17 121/75 97 06/28/21 03:25 98.2 F 72 17 117/72 95 06/27/21 23:00 98 H 06/27/21 22:43 97.5 F L 95 H 16 142/98 H 96 PG Care Time/CCT Total # of Minutes Spent Total Time Spent with Patient: Total time spent is greater than 50% in coordination of care (as documented) at patient's floor/unit and/or counseling patient: Coding Diagnoses Pneumonia due to COVID-19 virus U07.1; J12.82 Acute respiratory failure with hypoxia J96.01 COPD with emphysema J43.9 Atrial fibrillation I48.91 Type 2 diabetes mellitus E11.9 History of stroke Z86.73 CHF (congestive heart failure) I50.33 Heart failure type: diastolic Heart failure chronicity: acute on chronic Garibay's esophagus K22.70 Anemia D64.9 BPH associated with nocturia N40.1; R35.1 MGUS (monoclonal gammopathy of unknown significance) D47.2 Carotid artery stenosis I65.29 Dyslipidemia E78.5 (1) CHF (congestive heart failure) Heart failure type: diastolic Heart failure chronicity: acute on chronic Qualified Code(s): I50.33 - Acute on chronic diastolic (congestive) heart failure
[2021-06-28] MEDS: POTASSIUM CHLORIDE CRTAB 20 MEQ TABCR PO SCH (09:25)
--- NOTE | 2021-06-28 15:32 | Discharge Summary ---
Date of Service June 28, 2021 Admission HPI Per Admitting Provider This patient is an 89-year-old male with a history of CVA, permanent atrial fibrillation on Eliquis, chronic diastolic CHF, COPD, GERD with Garibay's esophagus, MGUS, subdural hematoma, DM 2, carotid artery stenosis, BPH, and anxiety disorder, who presents to the ER with progressively worsening shortness of breath over the last week. He began with fatigue and did not quite feel right, then developed upper respiratory symptoms including sinus congestion and rhinorrhea, then lost his smell and taste. He then started having a cough which is now productive of sputum. No fevers objectively but he felt feverish. He tested positive for Covid in the ER. Of note, he is fully vaccinated against Covid-19. He was hypoxic in the ER with pulse ox in the high 80s and was placed on supplemental oxygen. His labs were significant for a mild but fairly stable chronic anemia, lymphopenia, elevated proBNP at 2186, negative troponin, and procalcitonin normal at 0.06. His chest x-ray showed patchy interstitial and alveolar opacities bilaterally, right greater than left, consistent with viral pneumonia. He was afebrile, initially with rapid atrial fibrillation in the 120s which improved with 500 mL of normal saline down to the high 90s, and blood pressure was normal. He will be admitted for Covid-19 pneumonia with acute respiratory failure with hypoxia Principal Diagnosis Acute on chronic respiratory failure with hypoxia covid pneumonia Discharge Exam The patient appeared well Vital signs as documented. Lungs are with fair air movement and only scant basilar rales no wheezes no focal loss Cardiac exam, Rhythm is regular.. No murmurs, rubs or gallops. Abdominal exam reveals normal bowel sounds, soft non tender, no masses Extremities are nonedematous and both pedal pulses are normal. Neurologic exam is alert and oriented, no focal loss of strength or sensation Skin is without bruises or rashes Psychologically is without concerns for anxiety or depression. Discharge Data Allergies Allergy/AdvReac Type Severity Reaction Status Date / Time lisinopril AdvReac Mild Cough Verified 06/26/21 11:14 Consultations 06/26/21 13:14 ED Decision to Admit Stat Hospital Course (1) Pneumonia due to COVID-19 virus: On day 7 of symptoms at the time of presentation, with bilateral pneumonia on chest x-ray and acute respiratory failure with hypoxia With underlying COPD, rapid atrial fibrillation, and DM2 as well as age being risk factors for worsening disease Saturation Of note, he is fully vaccinated continue dexamethasone and complete additional 6 days as an outpatient he says he feels back to his baseline, he feels he has good family support at home he is eating more no indication for antibiotics (2) Acute respiratory failure with hypoxia: As above, secondary to Covid-19 with pneumonia treat COVID with dexamethasone as patient has improved we will discontinue his remdesivir dosing (3) COPD with emphysema: Follows with pulmonology Dr. Magaña Continue home inhalers and duo nebs as above Steroids Patient says he feels back to his baseline (4) Atrial fibrillation: Permanent atrial fibrillation-with rapid ventricular response upon admission with rates in the 120s improved with 500 mL bolus of normal saline His appetite and p.o. intake have been poor and likely had some dehydration -Continue home apixaban for anticoagulation -He is not on rate controlling medications as in the past he has had issues with bradycardia -He previously also was on amiodarone but this was also discontinued for issues with bradycardia Follows with cardiology-Dr. 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 Continue aspirin, apixaban, statin (7) CHF (congestive heart failure): Chronic diastolic CHF No evidence of volume overload in fact he has hypovolemia causing tachycardia on admission and received 500 mL bolus of normal saline proBNP is elevated at 2106 but again, suspect he is hypovolemic on admission Restarted home Lasix 20 mg daily (8) Garibay's esophagus: Continue PPI (9) Anemia: Mild normocytic with hemoglobin in the 10-11 range at baseline 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 Continue home ferrous sulfate (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: No acute issues Watch for urinary retention (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): As above (12) Carotid artery stenosis: Follow as an outpatient Continue aspirin, statin (13) Dyslipidemia: Continue statin called son at discharge no answer Total Time Total Time Spent Total Time Spent (In Minutes): It required greater than 30 minutes to prepare this patient for discharge Discharge Plan Discharge Items Patient Disposition: Home - Self-Care Reason For Visit: COVID-19 PNEUMONIA, HYPOXIA Discharge Diagnosis: rapid heart rate-atrial fibrillation-resolved covid pneumonia -mild, no need for home oxygen Activity: Per Instructions section Activity Comment: slowly increase activity level Non-emergency contact: Primary Care Provider Call non-emergency contact if: your symptoms worsen and you have a fever Follow-up/Referrals: Jai Garcia MD [Primary Care Provider] - Diet: Carb Consistent or DM2 Addtl Attending Provider Instructions: you have a mild case of Covid Pneumonia, it is great news that you have little symptoms but you can be contagious to others, please refrain from being around other people who have not have Covid INFECTION for 10 day until 07/07/21. If you have to be near others please wear a mask even if inside. Home Isolation COVID-19 Instructions The following information about Home Isolation is from the CDC Website: https://www.cdc.gov/coronavirus/2019-ncov/hcp/mbzhlsme-ssdkved-cwvvnd.html Stay home except to get medical care People who are mildly ill with COVID-19 are able to isolate at home during their illness. You should restrict activities outside your home, except for getting medical care. Do not go to work, school, or public areas. Avoid using public transportation, ride-sharing, or taxis. Separate yourself from other people and animals in your home People: As much as possible, you should stay in a specific room and away from other people in your home. Also, you should use a separate bathroom, if available. Animals: You should restrict contact with pets and other animals while you are sick with COVID-19, just like you would around other people. Although there have not been reports of pets or other animals becoming sick with COVID-19, it is still recommended that people sick with COVID-19 limit contact with animals until more information is known about the virus. When possible, have another member of your household care for your animals while you are sick. If you are sick with COVID-19, avoid contact with your pet, including petting, snuggling, being kissed or licked, and sharing food. If you must care for your pet or be around animals while you are sick, wash your hands before and after you interact with pets and wear a face mask. Call ahead before visiting your doctor If you have a medical appointment, call the healthcare provider and tell them that you have or may have COVID-19. This will help the healthcare providers office take steps to keep other people from getting infected or exposed. Wear a face mask You should wear a face mask when you are around other people (e.g., sharing a room or vehicle) or pets and before you enter a healthcare providers office. If you are not able to wear a face mask (for example, because it causes trouble breathing), then people who live with you should not stay in the same room with you, or they should wear a face mask if they enter your room. Cover your coughs and sneezes Cover your mouth and nose with a tissue when you cough or sneeze. Throw used tissues in a lined trash can. Immediately wash your hands with soap and water for at least 20 seconds or, if soap and water are not available, clean your hands with an alcohol-based hand apartment assistant manager that contains at least 60% alcohol. Clean your hands often Wash your hands often with soap and water for at least 20 seconds, especially after blowing your nose, coughing, or sneezing; going to the bathroom; and bef ore eating or preparing food. If soap and water are not readily available, use an alcohol-based hand apartment assistant manager with at least 60% alcohol, covering all surfaces of your hands and rubbing them together until they feel dry. Soap and water are the best option if hands are visibly dirty. Avoid touching your eyes, nose, and mouth with unwashed hands. Avoid sharing personal household items You should not share dishes, drinking glasses, cups, eating utensils, towels, or bedding with other people or pets in your home. After using these items, they should be washed thoroughly with soap and water. Clean all high-touch surfaces everyday High touch surfaces include counters, tabletops, doorknobs, bathroom fixtures, toilets, phones, keyboards, tablets, and bedside tables. Also, clean any surfaces that may have blood, stool, or body fluids on them. Use a household cleaning spray or wipe, according to the label instructions. Labels contain instructions for safe and effective use of the cleaning product including precautions you should take when applying the product, such as wearing gloves and making sure you have good ventilation during use of the product. Monitor your symptoms Seek prompt medical attention if your illness is worsening (e.g., difficulty breathing).Beforeseeking care, call your healthcare provider and tell them that you have, or are being evaluated for, COVID-19. Put on a face mask before you enter the facility. These steps will help the healthcare providers office to keep other people in the office or waiting room from getting infected or exposed. Ask your healthcare provider to call the local or state health department. Persons who are placed under active monitoring or facilitated self- monitoring should follow instructions provided by their local health department or occupational health professionals, as appropriate. When working with your local health department check their available hours. If you have a medical emergency and need to call 911, notify the dispatch personnel that you have, or are being evaluated for COVID-19. If possible, put on a face mask before emergency medical services arrive. Discontinuing home isolation Patients with confirmed COVID-19 should remain under home isolation precautions until the risk of secondary transmission to others is thought to be low. The decision to discontinue home isolation precautions should be made on a [id number] basis, in consultation with healthcare providers and [facility] health departments. Pending Studies at Discharge: No Stand-Alone Forms: [facility], Smoking Cessation Medications and DC Order Prescriptions: New dexamethasone [Decadron] 4 mg tablet 6 mg PO DAILY Qty: 9 RF: 0 Continued Eliquis 5 mg tablet 5 mg PO BID Qty: 180 RF: 3 atorvastatin [Lipitor] 40 mg tablet 40 mg PO HS Qty: 90 RF: 3 furosemide 20 mg tablet 20 mg PO QAM PRN (Reason: Fluid Retention) RF: 0 albuterol sulfate 90 mcg/actuation HFA aerosol inhaler 1 inh inhalation QID PRN (Reason: shortness of breath or wheezing) Qty: 18 RF: 2 potassium chloride 20 mEq tablet,ER particles/crystals 20 meq PO DAILY RF: 0 ascorbate calcium (vitamin C) 500 mg tablet 500 mg PO DAILY RF: 0 ferrous sulfate 325 mg (65 mg iron) tablet 325 mg PO DAILY RF: 0 bisacodyl 10 mg suppository 10 mg [place] .INSERT 1 SUPPOSITORY Qty: 1 RF: 0 Spiriva Respimat 1.25 mcg/actuation mist 2 puff inhalation DAILY Qty: 4 RF: 2 omeprazole 20 mg Capsule,Delayed Release(Dr/Ec) 20 mg PO QAM RF: 0 aspirin [Aspir-81] 81 mg Tablet,Delayed Release (Dr/Ec) 81 mg PO QAM RF: 0 vitamin E 400 unit Capsule 400 unit PO QAM RF: 0 omega 0-qtn-jui-fish oil [Fish Oil] 1,000 mg (120 mg-180 mg) Capsule 1,000 mg PO QAM RF: 0 acetaminophen [Tylenol] 325 mg Tablet 650 mg PO QAM RF: 0 Discharge Orders: Discharge Order (Routine); Ordered 06/28/21 Ordered By: Ryne Desai Admission Data Admit Date/Time: 06/26/21 14:05 Attending Provider: Ryne Desai Admit Provider: Jessica Ayala Primary Care Provider: Jai Garcia V. Other Providers: Jessica Ayala Coding Level of Care Code D/C DAY MANAGEMENT >30 MINS Diagnoses Pneumonia due to COVID-19 virus U07.1; J12.82 Acute respiratory failure with hypoxia J96.01 COPD with emphysema J43.9 Atrial fibrillation I48.91 Type 2 diabetes mellitus E11.9 History of stroke Z86.73 CHF (congestive heart failure) I50.33 Heart failure type: diastolic Heart failure chronicity: acute on chronic Garibay's esophagus K22.70 Anemia D64.9 BPH associated with nocturia N40.1; R35.1 MGUS (monoclonal gammopathy of unknown significance) D47.2 Carotid artery stenosis I65.29 Dyslipidemia E78.5
== END 2021-06-28 17:25 | disposition home or self-care (01) | DRG 177 ==
LOC: ED 09:17 → EDINP 14:05 → SUATTDRO 14:05 → EDINP 18:23 → 2S 06-27 02:27